=== PATIENT | female | born 1950 | race Caucasian/White ===

== ENCOUNTER 2021-05-08 08:27 | Emergency (ER) | payer OTHER ==
--- OUTSIDE RECORDS SUMMARY | 2021-05-08 08:33 | XMS REPORT | Clinical Summary ---
:1950 Author Organization [facility] MD [facility] Address [address] [place] [address] Care Team Providers Name Role Phone Naun Ramos MD Unavailable MD Ryder Primary Care Provider Aura Rubalcava MD Unavailable Allergies Active Allergy Reactions Severity Noted Date Comments Gadobutrol GI Intolerance Medium 03/16/2021 Patient had h istory of nausea vomiting after MRI. 03/16/21: pre me dicated with Zofran 4 m g I.v. Reaction of "ex treme" nausea despite premed Zofran 4 mg IV x1. GHADA Mcmahan , recommends slow inject and Zofran 8 mg IV x1. Nitrofurantoin GI Intolerance High 04/13/2021 Chills, sev ere nausea Monohyd/M-Cryst and vomiting Penicillins Rash Medium 02/02/2021 Medications Medication Sig Dispensed Refills Start End Status Date Date ferrous sulfate 325 Take 325 mg by 0 Active mg (65 mg elemental mouth daily. iron per tablet) tablet amLODIPine (NORVASC) Take 1 tablet 30 tablet 6 Active 5 mg (5 mg) by 2 tabletIndications: mouth daily. Malignant neoplasm of endometrium, Exam of participant in clinical trial INV-() Take 3 tablets 84 tablet 0 Active futibatinib (TAS-120) (12 mg) by 2 022 4 mg mouth daily tabletIndications: for 21 days. Malignant neoplasm of Take with 8 uterus, not otherwise oz. of water specified on empty stomach (no food 2 hours before and 1 hour after dose). levoFLOXacin Take 1 tablet 5 tablet 0 Act jose roberto (Levaquin) 750 mg (750 mg) by 2 tabletIndications: mouth daily. Urinary tract infectious disease, Uncontrolled pain morphine (MS CONTIN) Take 1 tablet 90 tablet 0 Active 15 mg ER (15 mg) by 2 tabletIndications: mouth every 8 Neoplasm related pain (eight) hours. (acute) (chronic) phenazopyridine Take 1 tablet 6 tablet 0 Active (Pyridium) 100 mg (100 mg) by 2 022 tabletIndications: mouth 3 Dysuria (three) times a day as needed for dysuria for up to 2 days. HYDROcodone-acetamino Take 1 tablet 90 tablet 0 Active phen (NORCO) 10 by mouth every 2 mg-325 mg per 4 (four) hours tabletIndications: as needed for Neoplasm related pain moderate pain (acute) (chronic) or severe pain. lisinopril Take 40 mg by 0 Disco ntinued (PRINIVIL,ZESTRIL) 40 mouth. 021 (Therapy mg tablet completed) nitrofurantoin Take by mouth. 0 Discontinued (MACRODANTIN) 100 mg 021 (Reorder) capsule amLODIPine (NORVASC) Take 5 mg by 0 Discontinued 5 mg tablet mouth. 022 (Reorder ) HYDROcodone-acetamino 0 Discontinued phen (NORCO) 7.5 1 021 (Re order) mg-325 mg per tablet fluconazole Take 1 tablet 2 tablet 0 Expi red (Diflucan) 150 mg (150 mg) by 1 021 tabletIndications: mouth once for Candidiasis, not 1 dose. May otherwise specified take an additional tablet after 72 hours if symptoms persist. HYDROcodone-acetamino Take 1 tablet 120 tablet 0 06/06 Discontinued phen (NORCO) 7.5 by mouth every 1 022 (Reorder) mg-325 mg per 4 (four) hours tabletIndications: as needed for Malignant neoplasm of moderate pain. endometrium INV-() Take 5 tablets 112 tablet 0 Discontinued futibatinib (TAS-120) (20 mg) by 1 021 (Reorder) 4 mg mouth daily tabletIndications: for 21 days. Malignant neoplasm of Take with 8 uterus, not otherwise oz. of water specified on empty stomach (no food 2 hours before and 1 hour after dose). sevelamer carbonate Take 1 tablet 21 tablet 0 Discontinued (Renvela) 800 mg (800 mg) by 1 021 tabletIndications: mouth 3 Hyperphosphatemia (three) times a day with meals. calcium Take 2 tablets 42 tablet 0 Expir ed acetate,phosphat by mouth 3 021 bind, (PHOSLO) 667 mg (three) times tabletIndications: a day with Hyperphosphatemia meals for 7 days. Additional Information Patient not taking. Reason: Side effects, Reported on 03/02/2021 docusate sodium Take 100 mg by 0 1 Discontinued (Stool Softener) 100 mouth daily as (Other ) mg tablet needed for constipation. nitrofurantoin Take 1 capsule (100 30 capsule 1 03/02 03/0 03/2021 Discontinued monohyd/m-cryst mg) by mouth at (Stop Taking at (MACROBID) 100 mg bedtime. Betzy franco) capsuleIndications: Malignant neoplasm of endometrium INV-() Take 4 tablets (16 28 tablet 0 03/02 Discontinued futibatinib mg) by mouth daily (Reorder) (TAS-120) 4 mg for 7 days. Take tabletIndications: with 8 ounce of Malignant neoplasm water on empty of uterus, not stomach (no food 2 otherwise specified hours before and 1 hour after dose). INV-() Take 4 tablets (16 84 tablet 0 03/09 futibatinib mg) by mouth daily /2021 (TAS-120) 4 mg for 21 days. Take tabletIndications: with 8 oz. of water Malignant neoplasm on empty stomach of uterus, not (no food 2 hours otherwise specified before and 1 hour after dose). HYDROcodone-acetamin Take 1 tablet by 120 tablet 0 03/10 0 04/13/2021 Discontinued ophen (NORCO) 7.5 mouth every (Reorder) mg-325 mg per (four) hours as tabletIndications: needed for moderate Malignant neoplasm pain. of endometrium nitrofurantoin Take 1 capsule (100 5 capsule 0 04/06 monohyd/m-cryst mg) by mouth at (Macrobid) 100 mg bedtime for 5 days. capsuleIndications: Chronic urinary tract infection ciprofloxacin HCl Take 1 tablet by 0 04/08 Discontinued (CIPRO) 500 mg mouth twice daily. /2021 (Stop Taking at tablet Discharge) HYDROcodone-acetamin Take 1 tablet by 120 tablet 0 04/13 0 05/05/2021 Discontinued ophen (NORCO) 7.5 mouth every (Stop Taking at mg-325 mg per (four) hours as Discharge) tabletIndications: needed for moderate Malignant neoplasm pain. of endometrium sulfamethoxazole-tri Take 1 tablet by 12 tablet 0 05/05 Discontinued methoprim (BACTRIM mouth every (Stop Taking at DS) 800 mg-160 mg (twelve) hours for Discharge) per 6 days. tabletIndications: Uncontrolled pain morphine (MSIR) 15 Take 0.5 tablets 60 tablet 0 05/05 Discontinued mg IR (7.5 mg) by mouth tabletIndications: every 4 (four) Neoplasm related hours as needed for pain (acute) pain. 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 02/23/2021 Neoplasm related pain (acute) (chronic) 02/23/2021 Urinary tract infectious disease 02/23/2021 Malignant neoplasm of uterus 04/07/2018 Hypertension 04/07/2011 Overview: Under control Encounters Date Type Specialty Care Team Description 05/07/2021 Orders Only Experimental Jay, Hydroureteronep hrosis Treatment Alycia, GAMBLING FLOOR SUPERVISOR (Primary Dx) 05/06/2021 Documentation Experimental Jay, Treatment Alycia, GAMBLING FLOOR SUPERVISOR 05/06/2021 Orders Only Experimental Jay, Dysuria (Primar y Dx); Treatment Alycia, GAMBLING FLOOR SUPERVISOR Hydroureteronep hrosis 05/06/2021 Telephone Wanda Patel Discharge Call MAK Christianson 05/06/2021 Telephone Adriana Gettings, Nick Lorenz RN 05/05/2021 Orders Only Experimental Johny, Malignant neopl asm of Treatment Dafne uterus, not oth erwise specified (Prim leonel Dx) 05/05/2021 Documentation Experimental Johny, Treatment Dafne 05/05/2021 Orders Only Experimental Trinidad Casillas, Treatment RPH 05/05/2021 Documentation Experimental Johny, Treatment Dafne 05/04/2021 Follow-Up Experimental Allison Scott, Malignant neopl asm of uterus, not otherwise specified (Primary Dx); Treatment PhD Malignant neopl asm of endometrium; Exam of partici pant in clinical trial 05/04/2021 Emergency Clinical Decision Parth Uncontroll ed pain (Primary Dx); - Bandar, Dysuria; 05/05/2021 Kia Cook MD Urinary tract infectious disease; Betts, Suprapubic pain ; Laurent Strickland, Neoplasm relate d pain (acute) (chronic) 05/04/2021 Hospital Encounter Lab Jay, Malignant neoplasm of Alycia, GAMBLING FLOOR SUPERVISOR uterus, not oth erwise specified 05/04/2021 Orders Only Experimental Trinidad Casillas, Malignant neopl asm of Treatment RPH uterus, not oth erwise specified (Prim leonel Dx) 05/04/2021 Travel 05/01/2021 Orders Only Experimental Johny, Treatment Dafne 04/24/2021 Documentation Experimental Johny, Treatment Dafne 04/24/2021 Documentation Experimental Johny, Treatment Dafne 04/15/2021 Documentation Experimental Johny, Treatment Dafne 04/15/2021 Orders Only Experimental Jay, Malignant neopl asm of Treatment Alycia, GAMBLING FLOOR SUPERVISOR uterus, not oth erwise specified (Prim leonel Dx) 04/14/2021 Prep for Surgery Pulmonology Sg, Abnormal fi ndings on [place] A, AUTO TESTER diagnostic imag ing of lung (Primary Dx) 04/14/2021 Orders Only Experimental Padilla, Croatian Hsin Treatment 04/14/2021 Telephone Experimental Willis, Treatment Hundred, GAMBLING FLOOR SUPERVISOR 04/13/2021 Ancillary Procedure Radiology Bruce Soler MD 04/13/2021 Ancillary Procedure Radiology Bruce Soler MD 04/13/2021 Hospital Encounter Infusion Services Allison Scott, Greer gnjoe neoplasm of PhD uterus, not otherwise Baby, specified (Prim leonel Dx) MAK Chaudhry 04/13/2021 Follow-Up Experimental Allison Scott, Malignant neopl asm of endometrium (Primary Dx); Treatment PhD Exam of partici pant in clinical trial; Anemia in malig nant neoplastic disease; Malignant neopl asm of uterus, not otherwise specified; Chronic urinary tract infection; Secondary malig nant neoplasm of bladder; Secondary malig nant neoplasm of colon; Secondary malig nant neoplasm of peritoneum; Cancer associat ed pain; Pneumonitis 04/13/2021 Documentation Experimental Johny, Treatment Dafne 04/13/2021 Orders Only Experimental Johny, Malignant neopl asm of Treatment Dafne endometrium (Pr imary Dx) 04/13/2021 Orders Only Experimental Allison Scott, Malignant neopl asm of Treatment PhD uterus, not oth erwise specified (Prim leonel Dx) 04/13/2021 Orders Only Experimental Trinidad Casillas, Malignant neopl asm of Treatment RPH uterus, not oth erwise specified (Prim leonel Dx) 04/13/2021 Travel 04/12/2021 Hospital Encounter Radiology Pierre, Malignant neoplasm of Alycia, GAMBLING FLOOR SUPERVISOR endometrium 04/12/2021 Hospital Encounter Lab Alba, Malignant neoplasm of endometrium; Hundred, GAMBLING FLOOR SUPERVISOR Chronic urinary tract infection; Malignant neopl asm of uterus, not otherwise specified 04/12/2021 Travel 04/09/2021 Orders Only Experimental Johny, Malignant neopl asm of Treatment Dafne endometrium (Pr imary Dx) 04/08/2021 Orders Only Experimental Padilla, Croatian Hsin Treatment 04/08/2021 Orders Only Experimental Padilla, Croatian Hsin Malignant neopl asm of Treatment uterus, not oth erwise specified (Prim leonel Dx) 04/08/2021 Documentation Experimental Johny, Treatment Dafne 04/08/2021 Orders Only Experimental Johny, Treatment Dafne 04/07/2021 Orders Only Experimental Johny, Malignant neopl asm of Treatment Dafne endometrium (Pr imary Dx) 04/06/2021 Orders Only Experimental Willis, Chronic urinary tract Treatment Hundred, GAMBLING FLOOR SUPERVISOR infection (Prim leonel Dx) 04/06/2021 Telephone Experimental Willis, Treatment Hundred, GAMBLING FLOOR SUPERVISOR 04/06/2021 Orders Only Experimental Johny, Malignant neopl asm of Treatment Dafne endometrium (Pr imary Dx) 04/03/2021 Follow-Up Experimental Willis, Secondary malig nant neoplasm of bladder (Primary Dx); Treatment Hundred, GAMBLING FLOOR SUPERVISOR Malignant neopl asm of endometrium; Secondary malig nant neoplasm of colon; Secondary malig nant neoplasm of peritoneum; Secondary malig nant neoplasm of bilateral lungs; Secondary malig nant neoplasm of bone; Anemia in malig nant neoplastic disease; Cancer associat ed pain 04/03/2021 Hospital Encounter Lab Alba, Malignant neoplasm of Hundred, GAMBLING FLOOR SUPERVISOR endometrium 04/03/2021 Travel 03/30/2021 Follow-Up Experimental Willis, Secondary malig nant neoplasm of bladder (Primary Dx); Treatment Hundred, GAMBLING FLOOR SUPERVISOR Malignant neopl asm of endometrium; Secondary malig nant neoplasm of colon; Secondary malig nant neoplasm of bone; Secondary malig nant neoplasm of bilateral lungs; Secondary malig nant neoplasm of peritoneum; Anemia in malig nant neoplastic disease; Hypoalbuminemia ; ALT (SGPT) leve l raised; Hyperphosphatem ia 03/30/2021 Hospital Encounter Lab Pierre, Malignant neoplasm of Alycia, GAMBLING FLOOR SUPERVISOR uterus, not oth erwise specified 03/30/2021 Orders Only Experimental Sameer, Malignant neopl asm of Treatment Allan H uterus, not oth erwise III, PharmD specified (Prim leonel Dx) 03/30/2021 Orders Only Experimental Yamamura, Malignant neopl asm of Treatment Jena endometrium (Pr imary Dx) 03/30/2021 Orders Only Experimental Yamamura, Malignant neopl asm of Treatment Jena endometrium (Pr imary Dx) 03/30/2021 Travel 03/30/2021 Orders Only Experimental Padilla, Croatian Hsin Malignant neopl asm of Treatment endometrium (Pr imary Dx) 03/16/2021 Emergency Clinical Decision Bandar, TIA (Prima ry Dx); - MD Neelam Anemia in malignant neoplastic disease; 03/17/2021 Gabbi, Hypercalcemia; MD Sampson Hyperphosphatem ia; Secondary malig nant neoplasm of bone; Malignant neopl asm of uterus 03/16/2021 Follow-Up Experimental Pierre, Malignant neopl asm of endometrium (Primary Dx); Treatment Alycia, GAMBLING FLOOR SUPERVISOR Secondary malignant neoplasm of bladder; Fu, Siqilaura, Secondary malig nant neoplasm of bilateral lungs; PhD Secondary malig nant neoplasm of bone; Secondary malig nant neoplasm of colon; Secondary malig nant neoplasm of peritoneum; Altered mental status; Fistula; Neoplasm relate d pain (acute) (chronic); Hypertension; Exam of partici pant in clinical trial; Anemia in malig nant neoplastic disease 03/16/2021 Orders Only Experimental Jay, Treatment Alycia, GAMBLING FLOOR SUPERVISOR 03/16/2021 Orders Only Experimental Pierre, Malignant neopl asm of Treatment Alycia, GAMBLING FLOOR SUPERVISOR uterus, not oth erwise specified (Prim leonel Dx) 03/16/2021 Orders Only Experimental Trinidad Casillas, Treatment RPH 03/16/2021 Travel 03/10/2021 Hospital Encounter Infusion Services FuAllison, Greer meier neoplasm of PhD uterus, not otherwise Kristal, specified (Prim leonel Dx) Michele Keene RN 03/10/2021 Orders Only Experimental Allison Scott, Malignant neopl asm of Treatment MD Lynn endometrium 03/10/2021 Travel 03/09/2021 Hospital Encounter Infusion Services Allison Scott Mali gnant neoplasm of PhD uterus, not oth erwise specified (Prim leonel Dx) 03/09/2021 Follow-Up Experimental Fu Siqing, Malignant neopl asm of uterus, not otherwise specified (Primary Dx); Treatment MD Lynn Malignant neopl asm of endometrium; Hyperphosphatem ia; Secondary malig nant neoplasm of bladder; Recurrent urina ry tract infection; Exam of partici pant in clinical trial 03/09/2021 Hospital Encounter Vascular Access Ryder, and Procedures MD Shashank Gilliland Joann N, RN 03/09/2021 Hospital Encounter Lab Jay, Malignant neoplasm of Alycia, GAMBLING FLOOR SUPERVISOR uterus, not oth erwise specified 03/09/2021 Orders Only Experimental Munson, Malignant neopl asm of Treatment Clarice, RPH uterus, not oth erwise specified (Prim leonel Dx) 03/09/2021 Orders Only Experimental Padilla Croatian Hsin Treatment 03/09/2021 Orders Only Experimental Fu, Siqing, Malignant neopl asm of Treatment PhD uterus, not oth erwise specified (Prim leonel Dx) 03/09/2021 Travel 03/05/2021 Hospital Encounter Lab Jay, Malignant neoplasm of Alycia, GAMBLING FLOOR SUPERVISOR uterus, not oth erwise specified 03/04/2021 Orders Only Experimental Zacarias, Malignant neopl asm of Treatment Vaishali A uterus, not oth erwise specified (Prim leonel Dx) 03/02/2021 Follow-Up Experimental Pierre, Malignant neopl asm of endometrium (Primary Dx); Treatment Alycia, GAMBLING FLOOR SUPERVISOR Hyperphosphatemia; Fu, Siqing, Secondary malig nant neoplasm of bladder; PhD Exam of partici pant in clinical trial; Recurrent urina ry tract infection 03/02/2021 Hospital Encounter Lab Fu, Siqing, Malignant neoplasm of MD PhD uterus, not oth erwise specified 03/02/2021 Orders Only Experimental Fu, Siqing, Malignant neopl asm of Treatment MD PhD uterus, not oth erwise specified (Prim leonel Dx) 03/02/2021 Orders Only Experimental Sameer, Treatment Allan Kumar III, PharmD 03/02/2021 Travel 02/23/2021 Follow-Up Experimental Pierre Malignant neopl asm of endometrium (Primary Dx); Treatment Alycia, GAMBLING FLOOR SUPERVISOR Hypotension, not otherwise specified; Adelso, Hyperphosphatem ia; Melly Del Castillo NP Secondary malig nant neoplasm of bladder; Secondary malig nant neoplasm of unspecified lung; Secondary malig nant neoplasm of bone; Secondary malig nant neoplasm of peritoneum; Secondary malig nant neoplasm of colon; Recurrent urina ry tract infection; Neoplasm relate d pain (acute) (chronic); Diarrhea; Anemia in malig nant neoplastic disease; Serum creatinin e raised; Elevated liver enzymes level 02/23/2021 Hospital Encounter Infusion Services Adleso, Hypo tension, not otherwise Melly Del Castillo NP specified (Primary Dx) Edilma Higgins RN 02/23/2021 Hospital Encounter Lab Allison Scott, Malignant neoplasm of PhD uterus, not oth erwise specified 02/23/2021 Travel 02/20/2021 Telephone Experimental Matt, Treatment MAK Rosado 02/16/2021 Hospital Encounter Infusion Services Greer Jay neoplasm of Alycia, GAMBLING FLOOR SUPERVISOR uterus, not oth erwise specified (Prim leonel Dx) 02/16/2021 Hospital Encounter Vascular Access Ryder, and Procedures MD Emilee Gilliland Fatima, MAK 02/16/2021 Follow-Up Experimental Allison Scott, Exam of partici pant in clinical trial (Primary Dx); Treatment MD Lynn Malignant neopl asm of endometrium; Anemia in [facility] nan neoplastic disease; Hypertension 02/16/2021 Hospital Encounter Lab Jay, Malignant neoplasm of Alycia, GAMBLING FLOOR SUPERVISOR endometrium 02/16/2021 Documentation Experimental Zacarias, Treatment Vaishali A 02/16/2021 Orders Only Experimental Allison Scott, Malignant neopl asm of Treatment PhD uterus, not oth erwise specified (Prim leonel Dx) 02/16/2021 Orders Only Experimental Pierre, Malignant neopl asm of Treatment Alycia, GAMBLING FLOOR SUPERVISOR uterus, not oth erwise specified (Prim leonel Dx) 02/16/2021 Travel 02/16/2021 Orders Only Experimental Trinidad Casilals, Malignant neopl asm of Treatment RPH uterus, not oth erwise specified (Prim leonel Dx) 02/16/2021 Orders Only Experimental Zacarias, Malignant neopl asm of Treatment Vaishali A endometrium (Pr imary Dx) 02/16/2021 Orders Only Experimental Zacarias, Malignant neopl asm of Treatment Vaishali A endometrium (Pr imary Dx) 02/13/2021 Hospital Encounter Cardiology Pierre, Malignant neoplasm of Alcyia, GAMBLING FLOOR SUPERVISOR endometrium 02/13/2021 Travel 02/12/2021 Ancillary Procedure Radiology Pierre, Malignan t neoplasm of Alycia, GAMBLING FLOOR SUPERVISOR endometrium 02/12/2021 Hospital Encounter Ophthalmology Av, Examinat ion of participant in clinical research (Primary Dx); MD Serena Malignant neopl asm of endometrium 02/12/2021 Hospital Encounter Cardiology Jay, Malignant neoplasm of Alycia, GAMBLING FLOOR SUPERVISOR endometrium 02/12/2021 Travel 02/11/2021 Orders Only Experimental Zacarias, Treatment Vaishali A 02/09/2021 Orders Only Experimental Zacarias Malignant neopl asm of Treatment Vaishali A endometrium (Pr imary Dx) 02/06/2021 Orders Only Experimental Allison Scott, Malignant neopl asm of Treatment PhD endometrium (Pr imary Dx) 02/06/2021 Telephone Gynecology Talat Soler MD 02/04/2021 Ancillary Procedure Radiology Ryder Malignan t neoplasm winnie Gilliland MD endometrium 02/04/2021 Orders Only Gynecology Ulisses, Malignant neopl asm of endometrium (Primary Dx); Leyda A, Dysuria PA 02/04/2021 Travel 02/03/2021 Orders Only Gynecology Ulisses, Encounter for a djustment Leyda A, and management of vascular PA catheters (Prim leonel Dx) 02/02/2021 Ancillary Procedure Radiology Janey Soler t Sasha MD endometrium 02/02/2021 Consult Experimental Allison Scott, Malignant neopl asm of endometrium (Primary Dx); Treatment PhD Exam of partici pant in clinical trial; Anemia in malig nant neoplastic disease; Hypertension 02/02/2021 Hospital Encounter Lab Ryder Malignant neoplasm winnie Gilliland MD endometrium 02/02/2021 Office Visit Gynecology Ryder, Malignant neopl asm of endometrium (Primary Dx); MD Talat Secondary malig nant neoplasm of peritoneum; Dysuria; Candidiasis, no t otherwise specified; Fistula 02/02/2021 NPR Patient Access Services 02/02/2021 Documentation Experimental Zacarias, Treatment Vaishali A 02/02/2021 Orders Only Adriana Adames, Treatment Vaishali A 02/02/2021 Travel 01/07/2021 Ancillary Procedure Radiology Bruce Soler MD 01/07/2021 Ancillary Procedure Radiology Bruce Soler MD 01/06/2021 Lab Requisition Lyle Martinez MD Fandel, Terese M, MD 12/29/2020 Travel after 05/08/2020 Immunizations Name Administration Dates Next Due Moderna SARS-CoV-2 Vaccination 10/30/2020, 10/03/2020 Surgical History Surgery Date Site/Laterality Comments COLON SURGERY 05/05/2020 - 06/04/2020 Ostomy, 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 HYSTERECTOMY VAGINAL 04/07/2018 - 05/04/2018 BSO Medical History Medical History Date Comments Hypertension 04/18 Under control History of recurrent urinary tract infection 05/2020 Malignant neoplasm of uterus 04/2018 Social History Tobacco Use Types Packs/Day Years Used Date Former Smoker Cigarettes, Electronic 0.5 25 03/1975 - cigarette 05/05/2005 Smokeless Tobacco: Never Used Comments: vapping currently, no Alcohol Use Standard Drinks/Week Comments Not Currently 0 (1 standard drink = 0.6 oz pure alcoho l) Sex Assigned at Date Recorded Not on file Job Start Date Occupation Industry Not on file Not on file Not on file COVID-19 Exposure Response Date Recorded In the last month, have you been in contact with No / Unsure 05/04/2021 5:51 PM SPEECH THERAPIST TECHNICIAN someone who was confirmed or suspected to have Coronavirus / COVID-19? Obstetrics History Para Term AB IAB SAB Ectopic Multiple Living Live Births 2 2 Date Outcome GA Total Labor/2nd/3rd Weight Sex Delivery Anes PTL Gabby A 1 A5 Name Clin Labor Para Para Comments Menopause 48 HRT denies Last Filed Vital Signs Vital Sign Reading Time Taken Comments Blood Pressure 109/61 05/05/2021 10:49 AM SPEECH THERAPIST TECHNICIAN Pulse 88 05/05/2021 10:49 AM SPEECH THERAPIST TECHNICIAN Temperature 36.9 C (98.4 F) 05/05/2021 10:49 AM SPEECH THERAPIST TECHNICIAN Respiratory Rate 17 05/05/2021 10:49 AM SPEECH THERAPIST TECHNICIAN Oxygen Saturation 95% 05/05/2021 10:50 AM SPEECH THERAPIST TECHNICIAN retake Inhaled Oxygen Concentration - - Weight 53.3 kg (117 lb 8.1 oz) 05/04/2021 2:15 PM SPEECH THERAPIST TECHNICIAN Height 160 cm (5' 2.99") 05/04/2021 2:15 PM SPEECH THERAPIST TECHNICIAN Body Mass Index 20.82 05/04/2021 2:15 PM SPEECH THERAPIST TECHNICIAN Plan of Treatment Date Type Specialty Care Team Description 05/11/2021 Appointment Lab Alycia Jay N P [address] [place], [place] [address] (Wo rk) 05/11/2021 Appointment Cardiology Alycia Jay N P [address] [place], [place] [address] (Wo rk) 05/11/2021 Follow-Up Experimental Treatment Milad Scott MD PhD [address] [place], [place] [address] (Wo rk) 05/11/2021 Appointment Infusion Services Allison Scott MD PhD [address] [place], [place] [address] (Wo rk) 05/25/2021 Appointment Cardiology Alycia Jay, N P [address] [place], [place] [address] (Wo rk) 05/25/2021 Follow-Up Experimental Treatment Milad Scott MD PhD [address] [place], [place] [address] (Wo rk) 05/25/2021 Appointment Radiology Alycia Jay, N P [address] [place], [place] [address] (Wo rk) Health Maintenance Due Date Last Done Comments COVID-19 Vaccination (3 - Inadvertent risk 11/27/202010/30, 10/03/2020 4-dose series) Procedures Procedure Name Priority Date/Time Associated Comments Diagnosis MANUAL DIFFERENTIAL AM 05/05/2021 5:12 Resu lts for this AM SPEECH THERAPIST TECHNICIAN procedure are i n the results section. Results CBC AM 05/05/2021 5:12 Results for this AM SPEECH THERAPIST TECHNICIAN procedure are i n the results section. CALCIUM LEVEL TOTAL AM 05/05/2021 5:12 Resu lts for this AM SPEECH THERAPIST TECHNICIAN procedure are i n the results section. .GLOMERULAR FILTRATION AM 05/05/2021 5:12 R esults for this RATE AM SPEECH THERAPIST TECHNICIAN procedure are i n the results section. SERUM CREATININE AM 05/05/2021 5:12 Results for this AM SPEECH THERAPIST TECHNICIAN procedure are i n the results section. ELECTROLYTE PANEL AM 05/05/2021 5:12 Result s for this AM SPEECH THERAPIST TECHNICIAN procedure are i n the results section. BLOOD UREA NITROGEN AM 05/05/2021 5:12 Resu lts for this AM SPEECH THERAPIST TECHNICIAN procedure are i n the results section. GLUCOSE LEVEL AM 05/05/2021 5:12 Results fo r this AM SPEECH THERAPIST TECHNICIAN procedure are i n the results section. COMPLETE BLOOD COUNT W/ AM 05/05/2021 5:12 DIFFERENTIAL AM SPEECH THERAPIST TECHNICIAN PHOSPHORUS LEVEL AM 05/05/2021 5:12 Results for this AM SPEECH THERAPIST TECHNICIAN procedure are i n the results section. MAGNESIUM LEVEL AM 05/05/2021 5:12 Results for this AM SPEECH THERAPIST TECHNICIAN procedure are i n the results section. BASIC METABOLIC PANEL, AM 05/05/2021 5:12 CALCIUM TOTAL AM SPEECH THERAPIST TECHNICIAN CT ABDOMEN PELVIS W Routine 05/04/2021 10:17 Resu lts for this CONTRAST PM SPEECH THERAPIST TECHNICIAN procedure are i n the results section. COVID-19 (SARS-COV-2) Now 05/04/2021 12:27 Re sults for this ASYMPTOMATIC-LT PM SPEECH THERAPIST TECHNICIAN procedure ar e in the results section. URINE CULTURE Now 05/04/2021 10:42 Results fo r this AM SPEECH THERAPIST TECHNICIAN procedure are i n the results section. URINALYSIS MICROSCOPIC Routine 05/04/2021 8:47 R esults for this AM SPEECH THERAPIST TECHNICIAN procedure are i n the results section. FRACTIONATED BILIRUBIN Routine 05/04/2021 8:47 Malignant neop lasm Results for this AM SPEECH THERAPIST TECHNICIAN of uterus, not procedure are in otherwise specified the resu lts section. TOTAL PROTEIN Routine 05/04/2021 8:47 Malignant neoplasm Resu lts for this AM SPEECH THERAPIST TECHNICIAN of uterus, not procedure are in otherwise specified the resu lts section. ASPARTATE Routine 05/04/2021 8:47 Malignant neoplasm Resul ts for this AMINOTRANSFERASE AM SPEECH THERAPIST TECHNICIAN of uterus, not procedure are in otherwise specified the resu lts section. ALANINE AMINOTRANSFERASE Routine 05/04/2021 8:47 Malignant ne oplasm Results for this AM SPEECH THERAPIST TECHNICIAN of uterus, not procedure are in otherwise specified the resu lts section. ALKALINE PHOSPHATASE Routine 05/04/2021 8:47 Malignant neopla sm Results for this AM SPEECH THERAPIST TECHNICIAN of uterus, not procedure are in otherwise specified the resu lts section. ALBUMIN LEVEL Routine 05/04/2021 8:47 Malignant neoplasm Resu lts for this AM SPEECH THERAPIST TECHNICIAN of uterus, not procedure are in otherwise specified the resu lts section. CALCIUM LEVEL TOTAL Routine 05/04/2021 8:47 Malignant neoplas m Results for this AM SPEECH THERAPIST TECHNICIAN of uterus, not procedure are in otherwise specified the resu lts section. .GLOMERULAR FILTRATION Routine 05/04/2021 8:47 Malignant neop lasm Results for this RATE AM SPEECH THERAPIST TECHNICIAN of uterus, not procedure are in otherwise specified the resu lts section. SERUM CREATININE Routine 05/04/2021 8:47 Malignant neoplasm R esults for this AM SPEECH THERAPIST TECHNICIAN of uterus, not procedure are in otherwise specified the resu lts section. ELECTROLYTE PANEL Routine 05/04/2021 8:47 Malignant neoplasm Results for this AM SPEECH THERAPIST TECHNICIAN of uterus, not procedure are in otherwise specified the resu lts section. BLOOD UREA NITROGEN Routine 05/04/2021 8:47 Malignant neoplas m Results for this AM SPEECH THERAPIST TECHNICIAN of uterus, not procedure are in otherwise specified the resu lts section. GLUCOSE LEVEL Routine 05/04/2021 8:47 Malignant neoplasm Resu lts for this AM SPEECH THERAPIST TECHNICIAN of uterus, not procedure are in otherwise specified the resu lts section. MANUAL DIFFERENTIAL Routine 05/04/2021 8:47 Malignant neoplas m Results for this AM SPEECH THERAPIST TECHNICIAN of uterus, not procedure are in otherwise specified the resu lts section. Results CBC Routine 05/04/2021 8:47 Malignant neoplasm Resul ts for this AM SPEECH THERAPIST TECHNICIAN of uterus, not procedure are in otherwise specified the resu lts section. URINALYSIS WITH Routine 05/04/2021 8:47 Malignant neoplasm Re sults for this MICROSCOPIC IF INDICATED AM SPEECH THERAPIST TECHNICIAN of uterus, not p rocedure are in otherwise specified the resu lts section. PHOSPHORUS LEVEL Routine 05/04/2021 8:47 Malignant neoplasm R esults for this AM SPEECH THERAPIST TECHNICIAN of uterus, not procedure are in otherwise specified the resu lts section. MAGNESIUM LEVEL Routine 05/04/2021 8:47 Malignant neoplasm Re sults for this AM SPEECH THERAPIST TECHNICIAN of uterus, not procedure are in otherwise specified the resu lts section. COMPREHENSIVE METABOLIC Routine 05/04/2021 8:47 Malignant romel plasm PANEL AM SPEECH THERAPIST TECHNICIAN of uterus, not otherwise specified COMPLETE BLOOD COUNT W/ Routine 05/04/2021 8:47 Malignant romel plasm DIFFERENTIAL AM SPEECH THERAPIST TECHNICIAN of uterus, not otherwise specified CTRC EKG, 12-LEAD Routine 04/13/2021 Malignant neoplasm of uterus, not otherwise specified CT CHEST W CONTRAST Routine 04/12/2021 12:14 Malignant neoplas m Results for this PM SPEECH THERAPIST TECHNICIAN of endometrium procedure are in the results section. URINALYSIS WITH REFLEX Routine 04/12/2021 10:56 R esults for this TO MICROSCOPIC REFERENCE AM SPEECH THERAPIST TECHNICIAN pro cedure are in LAB the results section. FRACTIONATED BILIRUBIN Routine 04/12/2021 10:56 Malignant neop lasm Results for this AM SPEECH THERAPIST TECHNICIAN of endometrium procedure are in the results section. TOTAL PROTEIN Routine 04/12/2021 10:56 Malignant neoplasm Resu lts for this AM SPEECH THERAPIST TECHNICIAN of endometrium procedure are in the results section. ASPARTATE Routine 04/12/2021 10:56 Malignant neoplasm Resul ts for this AMINOTRANSFERASE AM SPEECH THERAPIST TECHNICIAN of endometrium procedure are in the results section. ALANINE AMINOTRANSFERASE Routine 04/12/2021 10:56 Malignant ne oplasm Results for this AM SPEECH THERAPIST TECHNICIAN of endometrium procedure are in the results section. ALKALINE PHOSPHATASE Routine 04/12/2021 10:56 Malignant neopla sm Results for this AM SPEECH THERAPIST TECHNICIAN of endometrium procedure are in the results section. ALBUMIN LEVEL Routine 04/12/2021 10:56 Malignant neoplasm Resu lts for this AM SPEECH THERAPIST TECHNICIAN of endometrium procedure are in the results section. CALCIUM LEVEL TOTAL Routine 04/12/2021 10:56 Malignant neoplas m Results for this AM SPEECH THERAPIST TECHNICIAN of endometrium procedure are in the results section. .GLOMERULAR FILTRATION Routine 04/12/2021 10:56 Malignant neop lasm Results for this RATE AM SPEECH THERAPIST TECHNICIAN of endometrium procedure are in the results section. SERUM CREATININE Routine 04/12/2021 10:56 Malignant neoplasm R esults for this AM SPEECH THERAPIST TECHNICIAN of endometrium procedure are in the results section. ELECTROLYTE PANEL Routine 04/12/2021 10:56 Malignant neoplasm Results for this AM SPEECH THERAPIST TECHNICIAN of endometrium procedure are in the results section. BLOOD UREA NITROGEN Routine 04/12/2021 10:56 Malignant neoplas m Results for this AM SPEECH THERAPIST TECHNICIAN of endometrium procedure are in the results section. GLUCOSE LEVEL Routine 04/12/2021 10:56 Malignant neoplasm Resu lts for this AM SPEECH THERAPIST TECHNICIAN of endometrium procedure are in the results section. MANUAL DIFFERENTIAL Routine 04/12/2021 10:56 Malignant neoplas m Results for this AM SPEECH THERAPIST TECHNICIAN of endometrium procedure are in the results section. Results CBC Routine 04/12/2021 10:56 Malignant neoplasm Resul ts for this AM SPEECH THERAPIST TECHNICIAN of endometrium procedure are in the results section. CANCER ANTIGEN 125 Routine 04/12/2021 10:56 Malignant neoplasm Results for this AM SPEECH THERAPIST TECHNICIAN of uterus, not procedure are in otherwise specified the resu lts section. CANCER ANTIGEN 15-3 Routine 04/12/2021 10:56 Malignant neoplas m Results for this AM SPEECH THERAPIST TECHNICIAN of uterus, not procedure are in otherwise specified the resu lts section. FREE THYROXINE Routine 04/12/2021 10:56 Malignant neoplasm Res ults for this AM SPEECH THERAPIST TECHNICIAN of endometrium procedure are in the results section. THYROID STIMULATING Routine 04/12/2021 10:56 Malignant neoplas m Results for this HORMONE AM SPEECH THERAPIST TECHNICIAN of endometrium procedure are in the results section. PHOSPHORUS LEVEL Routine 04/12/2021 10:56 Malignant neoplasm R esults for this AM SPEECH THERAPIST TECHNICIAN of endometrium procedure are in the results section. MAGNESIUM LEVEL Routine 04/12/2021 10:56 Malignant neoplasm Re sults for this AM SPEECH THERAPIST TECHNICIAN of endometrium procedure are in the results section. COMPREHENSIVE METABOLIC Routine 04/12/2021 10:56 Malignant romel plasm PANEL AM SPEECH THERAPIST TECHNICIAN of endometrium COMPLETE BLOOD COUNT W/ Routine 04/12/2021 10:56 Malignant romel plasm DIFFERENTIAL AM SPEECH THERAPIST TECHNICIAN of endometrium URINE CULTURE Routine 04/12/2021 10:56 Chronic urinary Results for this AM SPEECH THERAPIST TECHNICIAN tract infection procedure ar e in the results section. OSI CT ABDOMEN AND Routine 04/08/2021 11:52 Cancer Resul ts for this PELVIS AM SPEECH THERAPIST TECHNICIAN procedure are i n the results section. OSI CHEST Routine 04/08/2021 11:52 Cancer Results for this AM SPEECH THERAPIST TECHNICIAN procedure are i n the results section. TMP INTERPRETATION Routine 04/03/2021 8:42 Resul ts for this ANTIBODY SCREEN NEGATIVE AM SPEECH THERAPIST TECHNICIAN pro cedure are in the results section. CLOT EXPIRATION DATE Routine 04/03/2021 8:42 Res ults for this AM SPEECH THERAPIST TECHNICIAN procedure are i n the results section. MANUAL DIFFERENTIAL Routine 04/03/2021 8:42 Malignant neoplas m Results for this AM SPEECH THERAPIST TECHNICIAN of endometrium procedure are in the results section. Results CBC Routine 04/03/2021 8:42 Malignant neoplasm Resul ts for this AM SPEECH THERAPIST TECHNICIAN of endometrium procedure are in the results section. ANTIBODY SCREEN Routine 04/03/2021 8:42 Malignant neoplasm Re sults for this AM SPEECH THERAPIST TECHNICIAN of endometrium procedure are in the results section. ABORH Routine 04/03/2021 8:42 Malignant neoplasm Resul ts for this AM SPEECH THERAPIST TECHNICIAN of endometrium procedure are in the results section. TYPE AND SCREEN Routine 04/03/2021 8:42 Malignant neoplasm AM SPEECH THERAPIST TECHNICIAN of endometrium COMPLETE BLOOD COUNT W/ Routine 04/03/2021 8:42 Malignant romel plasm DIFFERENTIAL AM SPEECH THERAPIST TECHNICIAN of endometrium URINALYSIS WITH REFLEX Routine 03/30/2021 8:55 R esults for this TO MICROSCOPIC REFERENCE AM SPEECH THERAPIST TECHNICIAN pro cedure are in LAB the results section. FRACTIONATED BILIRUBIN Routine 03/30/2021 8:55 Malignant neop lasm Results for this AM SPEECH THERAPIST TECHNICIAN of uterus, not procedure are in otherwise specified the resu lts section. TOTAL PROTEIN Routine 03/30/2021 8:55 Malignant neoplasm Resu lts for this AM SPEECH THERAPIST TECHNICIAN of uterus, not procedure are in otherwise specified the resu lts section. ASPARTATE Routine 03/30/2021 8:55 Malignant neoplasm Resul ts for this AMINOTRANSFERASE AM SPEECH THERAPIST TECHNICIAN of uterus, not procedure are in otherwise specified the resu lts section. ALANINE AMINOTRANSFERASE Routine 03/30/2021 8:55 Malignant ne oplasm Results for this AM SPEECH THERAPIST TECHNICIAN of uterus, not procedure are in otherwise specified the resu lts section. ALKALINE PHOSPHATASE Routine 03/30/2021 8:55 Malignant neopla sm Results for this AM SPEECH THERAPIST TECHNICIAN of uterus, not procedure are in otherwise specified the resu lts section. ALBUMIN LEVEL Routine 03/30/2021 8:55 Malignant neoplasm Resu lts for this AM SPEECH THERAPIST TECHNICIAN of uterus, not procedure are in otherwise specified the resu lts section. CALCIUM LEVEL TOTAL Routine 03/30/2021 8:55 Malignant neoplas m Results for this AM SPEECH THERAPIST TECHNICIAN of uterus, not procedure are in otherwise specified the resu lts section. .GLOMERULAR FILTRATION Routine 03/30/2021 8:55 Malignant neop lasm Results for this RATE AM SPEECH THERAPIST TECHNICIAN of uterus, not procedure are in otherwise specified the resu lts section. SERUM CREATININE Routine 03/30/2021 8:55 Malignant neoplasm R esults for this AM SPEECH THERAPIST TECHNICIAN of uterus, not procedure are in otherwise specified the resu lts section. ELECTROLYTE PANEL Routine 03/30/2021 8:55 Malignant neoplasm Results for this AM SPEECH THERAPIST TECHNICIAN of uterus, not procedure are in otherwise specified the resu lts section. BLOOD UREA NITROGEN Routine 03/30/2021 8:55 Malignant neoplas m Results for this AM SPEECH THERAPIST TECHNICIAN of uterus, not procedure are in otherwise specified the resu lts section. GLUCOSE LEVEL Routine 03/30/2021 8:55 Malignant neoplasm Resu lts for this AM SPEECH THERAPIST TECHNICIAN of uterus, not procedure are in otherwise specified the resu lts section. MANUAL DIFFERENTIAL Routine 03/30/2021 8:55 Malignant neoplas m Results for this AM SPEECH THERAPIST TECHNICIAN of uterus, not procedure are in otherwise specified the resu lts section. Results CBC Routine 03/30/2021 8:55 Malignant neoplasm Resul ts for this AM SPEECH THERAPIST TECHNICIAN of uterus, not procedure are in otherwise specified the resu lts section. CANCER ANTIGEN 125 Routine 03/30/2021 8:55 Malignant neoplasm Results for this AM SPEECH THERAPIST TECHNICIAN of uterus, not procedure are in otherwise specified the resu lts section. CANCER ANTIGEN 15-3 Routine 03/30/2021 8:55 Malignant neoplas m Results for this AM SPEECH THERAPIST TECHNICIAN of uterus, not procedure are in otherwise specified the resu lts section. THYROID STIMULATING Routine 03/30/2021 8:55 Malignant neoplas m Results for this HORMONE AM SPEECH THERAPIST TECHNICIAN of uterus, not procedure are in otherwise specified the resu lts section. FREE THYROXINE Routine 03/30/2021 8:55 Malignant neoplasm Res ults for this AM SPEECH THERAPIST TECHNICIAN of uterus, not procedure are in otherwise specified the resu lts section. PHOSPHORUS LEVEL Routine 03/30/2021 8:55 Malignant neoplasm R esults for this AM SPEECH THERAPIST TECHNICIAN of uterus, not procedure are in otherwise specified the resu lts section. MAGNESIUM LEVEL Routine 03/30/2021 8:55 Malignant neoplasm Re sults for this AM SPEECH THERAPIST TECHNICIAN of uterus, not procedure are in otherwise specified the resu lts section. COMPREHENSIVE METABOLIC Routine 03/30/2021 8:55 Malignant romel plasm PANEL AM SPEECH THERAPIST TECHNICIAN of uterus, not otherwise specified COMPLETE BLOOD COUNT W/ Routine 03/30/2021 8:55 Malignant romel plasm DIFFERENTIAL AM SPEECH THERAPIST TECHNICIAN of uterus, not otherwise specified HEMATOCRIT STAT 03/17/2021 6:47 Results for this AM SPEECH THERAPIST TECHNICIAN procedure are i n the results section. HEMOGLOBIN STAT 03/17/2021 6:47 Results for this AM SPEECH THERAPIST TECHNICIAN procedure are i n the results section. MANUAL DIFFERENTIAL AM 03/17/2021 4:00 Resu lts for this AM SPEECH THERAPIST TECHNICIAN procedure are i n the results section. Results CBC AM 03/17/2021 4:00 Results for this AM SPEECH THERAPIST TECHNICIAN procedure are i n the results section. CALCIUM LEVEL TOTAL AM 03/17/2021 4:00 Resu lts for this AM SPEECH THERAPIST TECHNICIAN procedure are i n the results section. .GLOMERULAR FILTRATION AM 03/17/2021 4:00 R esults for this RATE AM SPEECH THERAPIST TECHNICIAN procedure are i n the results section. SERUM CREATININE AM 03/17/2021 4:00 Results for this AM SPEECH THERAPIST TECHNICIAN procedure are i n the results section. ELECTROLYTE PANEL AM 03/17/2021 4:00 Result s for this AM SPEECH THERAPIST TECHNICIAN procedure are i n the results section. BLOOD UREA NITROGEN AM 03/17/2021 4:00 Resu lts for this AM SPEECH THERAPIST TECHNICIAN procedure are i n the results section. GLUCOSE LEVEL AM 03/17/2021 4:00 Results fo r this AM SPEECH THERAPIST TECHNICIAN procedure are i n the results section. HEMOGLOBIN A1C Routine 03/17/2021 4:00 Results f or this AM SPEECH THERAPIST TECHNICIAN procedure are i n the results section. LIPID PANEL Routine 03/17/2021 4:00 Results for this AM SPEECH THERAPIST TECHNICIAN procedure are i n the results section. COMPLETE BLOOD COUNT W/ AM 03/17/2021 4:00 DIFFERENTIAL AM SPEECH THERAPIST TECHNICIAN PHOSPHORUS LEVEL AM 03/17/2021 4:00 Results for this AM SPEECH THERAPIST TECHNICIAN procedure are i n the results section. MAGNESIUM LEVEL AM 03/17/2021 4:00 Results for this AM SPEECH THERAPIST TECHNICIAN procedure are i n the results section. BASIC METABOLIC PANEL, AM 03/17/2021 4:00 CALCIUM TOTAL AM SPEECH THERAPIST TECHNICIAN CTA HEAD NECK W WO STAT 03/16/2021 10:20 Resul ts for this CONTRAST PM SPEECH THERAPIST TECHNICIAN procedure are i n the results section. URINALYSIS MICROSCOPIC Routine 03/16/2021 9:08 R esults for this PM SPEECH THERAPIST TECHNICIAN procedure are i n the results section. URINALYSIS WITH Now 03/16/2021 9:08 Results for this MICROSCOPIC IF INDICATED PM SPEECH THERAPIST TECHNICIAN pro cedure are in the results section. URINE CULTURE Now 03/16/2021 9:08 Results fo r this PM SPEECH THERAPIST TECHNICIAN procedure are i n the results section. MRI BRAIN W WO CONTRAST Routine 03/16/2021 3:52 Results for this PM SPEECH THERAPIST TECHNICIAN procedure are i n the results section. CT HEAD WO CONTRAST STAT 03/16/2021 12:17 Resu lts for this PM SPEECH THERAPIST TECHNICIAN procedure are i n the results section. POC VENOUS BLOOD GAS + Routine 03/16/2021 11:37 R esults for this LACTATE AM SPEECH THERAPIST TECHNICIAN procedure are i n the results section. XR CHEST 1 VW Routine 03/16/2021 11:25 Results fo r this AM SPEECH THERAPIST TECHNICIAN procedure are i n the results section. CLOT EXPIRATION DATE Routine 03/16/2021 11:25 Res ults for this AM SPEECH THERAPIST TECHNICIAN procedure are i n the results section. TMP INTERPRETATION Routine 03/16/2021 11:25 Resul ts for this ANTIBODY SCREEN NEGATIVE AM SPEECH THERAPIST TECHNICIAN pro cedure are in the results section. ANTIBODY SCREEN Now 03/16/2021 11:25 Results for this AM SPEECH THERAPIST TECHNICIAN procedure are i n the results section. ABORH Now 03/16/2021 11:25 Results for this AM SPEECH THERAPIST TECHNICIAN procedure are i n the results section. FRACTIONATED BILIRUBIN Now 03/16/2021 11:25 R esults for this AM SPEECH THERAPIST TECHNICIAN procedure are i n the results section. TOTAL PROTEIN Now 03/16/2021 11:25 Results fo r this AM SPEECH THERAPIST TECHNICIAN procedure are i n the results section. ASPARTATE Now 03/16/2021 11:25 Results for this AMINOTRANSFERASE AM SPEECH THERAPIST TECHNICIAN procedure a re in the results section. ALANINE AMINOTRANSFERASE Now 03/16/2021 11:25 Results for this AM SPEECH THERAPIST TECHNICIAN procedure are i n the results section. ALKALINE PHOSPHATASE Now 03/16/2021 11:25 Res ults for this AM SPEECH THERAPIST TECHNICIAN procedure are i n the results section. ALBUMIN LEVEL Now 03/16/2021 11:25 Results fo r this AM SPEECH THERAPIST TECHNICIAN procedure are i n the results section. CALCIUM LEVEL TOTAL Now 03/16/2021 11:25 Resu lts for this AM SPEECH THERAPIST TECHNICIAN procedure are i n the results section. .GLOMERULAR FILTRATION Now 03/16/2021 11:25 R esults for this RATE AM SPEECH THERAPIST TECHNICIAN procedure are i n the results section. SERUM CREATININE Now 03/16/2021 11:25 Results for this AM SPEECH THERAPIST TECHNICIAN procedure are i n the results section. ELECTROLYTE PANEL Now 03/16/2021 11:25 Result s for this AM SPEECH THERAPIST TECHNICIAN procedure are i n the results section. BLOOD UREA NITROGEN Now 03/16/2021 11:25 Resu lts for this AM SPEECH THERAPIST TECHNICIAN procedure are i n the results section. GLUCOSE LEVEL Now 03/16/2021 11:25 Results fo r this AM SPEECH THERAPIST TECHNICIAN procedure are i n the results section. MANUAL DIFFERENTIAL STAT 03/16/2021 11:25 Resu lts for this AM SPEECH THERAPIST TECHNICIAN procedure are i n the results section. Results CBC STAT 03/16/2021 11:25 Results for this AM SPEECH THERAPIST TECHNICIAN procedure are i n the results section. TYPE AND SCREEN Now 03/16/2021 11:25 AM SPEECH THERAPIST TECHNICIAN LACTATE DEHYDROGENASE Now 03/16/2021 11:25 Re sults for this AM SPEECH THERAPIST TECHNICIAN procedure are i n the results section. APTT Now 03/16/2021 11:25 Results for this AM SPEECH THERAPIST TECHNICIAN procedure are i n the results section. PROTHROMBIN TIME Now 03/16/2021 11:25 Results for this AM SPEECH THERAPIST TECHNICIAN procedure are i n the results section. PHOSPHORUS LEVEL Now 03/16/2021 11:25 Results for this AM SPEECH THERAPIST TECHNICIAN procedure are i n the results section. MAGNESIUM LEVEL Now 03/16/2021 11:25 Results for this AM SPEECH THERAPIST TECHNICIAN procedure are i n the results section. COMPREHENSIVE METABOLIC Now 03/16/2021 11:25 PANEL AM SPEECH THERAPIST TECHNICIAN COMPLETE BLOOD COUNT W/ Now 03/16/2021 11:25 DIFFERENTIAL AM SPEECH THERAPIST TECHNICIAN AMMONIA LEVEL Now 03/16/2021 11:25 Results fo r this AM SPEECH THERAPIST TECHNICIAN procedure are i n the results section. COVID-19 (SARS-COV-2) Now 03/16/2021 11:25 Re sults for this ASYMPTOMATIC-LT AM SPEECH THERAPIST TECHNICIAN procedure ar e in the results section. POC GLUCOSE SCREEN Routine 03/16/2021 11:09 Resul ts for this AM SPEECH THERAPIST TECHNICIAN procedure are i n the results section. EKG, 12-LEAD (PORTABLE) STAT 03/16/2021 URINALYSIS MICROSCOPIC Routine 03/09/2021 12:07 R esults for this PM SPEECH THERAPIST TECHNICIAN procedure are i n the results section. URINALYSIS WITH Routine 03/09/2021 12:07 Malignant neoplasm Re sults for this MICROSCOPIC IF INDICATED PM SPEECH THERAPIST TECHNICIAN of uterus, not p rocedure are in otherwise specified the resu lts section. FRACTIONATED BILIRUBIN Routine 03/09/2021 12:00 Malignant neop lasm Results for this PM SPEECH THERAPIST TECHNICIAN of uterus, not procedure are in otherwise specified the resu lts section. TOTAL PROTEIN Routine 03/09/2021 12:00 Malignant neoplasm Resu lts for this PM SPEECH THERAPIST TECHNICIAN of uterus, not procedure are in otherwise specified the resu lts section. ASPARTATE Routine 03/09/2021 12:00 Malignant neoplasm Resul ts for this AMINOTRANSFERASE PM SPEECH THERAPIST TECHNICIAN of uterus, not procedure are in otherwise specified the resu lts section. ALANINE AMINOTRANSFERASE Routine 03/09/2021 12:00 Malignant ne oplasm Results for this PM SPEECH THERAPIST TECHNICIAN of uterus, not procedure are in otherwise specified the resu lts section. ALKALINE PHOSPHATASE Routine 03/09/2021 12:00 Malignant neopla sm Results for this PM SPEECH THERAPIST TECHNICIAN of uterus, not procedure are in otherwise specified the resu lts section. ALBUMIN LEVEL Routine 03/09/2021 12:00 Malignant neoplasm Resu lts for this PM SPEECH THERAPIST TECHNICIAN of uterus, not procedure are in otherwise specified the resu lts section. CALCIUM LEVEL TOTAL Routine 03/09/2021 12:00 Malignant neoplas m Results for this PM SPEECH THERAPIST TECHNICIAN of uterus, not procedure are in otherwise specified the resu lts section. .GLOMERULAR FILTRATION Routine 03/09/2021 12:00 Malignant neop lasm Results for this RATE PM SPEECH THERAPIST TECHNICIAN of uterus, not procedure are in otherwise specified the resu lts section. SERUM CREATININE Routine 03/09/2021 12:00 Malignant neoplasm R esults for this PM SPEECH THERAPIST TECHNICIAN of uterus, not procedure are in otherwise specified the resu lts section. ELECTROLYTE PANEL Routine 03/09/2021 12:00 Malignant neoplasm Results for this PM SPEECH THERAPIST TECHNICIAN of uterus, not procedure are in otherwise specified the resu lts section. BLOOD UREA NITROGEN Routine 03/09/2021 12:00 Malignant neoplas m Results for this PM SPEECH THERAPIST TECHNICIAN of uterus, not procedure are in otherwise specified the resu lts section. GLUCOSE LEVEL Routine 03/09/2021 12:00 Malignant neoplasm Resu lts for this PM SPEECH THERAPIST TECHNICIAN of uterus, not procedure are in otherwise specified the resu lts section. MANUAL DIFFERENTIAL Routine 03/09/2021 12:00 Malignant neoplas m Results for this PM SPEECH THERAPIST TECHNICIAN of uterus, not procedure are in otherwise specified the resu lts section. Results CBC Routine 03/09/2021 12:00 Malignant neoplasm Resul ts for this PM SPEECH THERAPIST TECHNICIAN of uterus, not procedure are in otherwise specified the resu lts section. PHOSPHORUS LEVEL Routine 03/09/2021 12:00 Malignant neoplasm R esults for this PM SPEECH THERAPIST TECHNICIAN of uterus, not procedure are in otherwise specified the resu lts section. MAGNESIUM LEVEL Routine 03/09/2021 12:00 Malignant neoplasm Re sults for this PM SPEECH THERAPIST TECHNICIAN of uterus, not procedure are in otherwise specified the resu lts section. COMPREHENSIVE METABOLIC Routine 03/09/2021 12:00 Malignant romel plasm PANEL PM SPEECH THERAPIST TECHNICIAN of uterus, not otherwise specified COMPLETE BLOOD COUNT W/ Routine 03/09/2021 12:00 Malignant romel plasm DIFFERENTIAL PM SPEECH THERAPIST TECHNICIAN of uterus, not otherwise specified MANUAL DIFFERENTIAL Routine 03/05/2021 12:14 Malignant neoplas m Results for this PM SPEECH THERAPIST TECHNICIAN of uterus, not procedure are in otherwise specified the resu lts section. Results CBC Routine 03/05/2021 12:14 Malignant neoplasm Resul ts for this PM SPEECH THERAPIST TECHNICIAN of uterus, not procedure are in otherwise specified the resu lts section. FRACTIONATED BILIRUBIN Routine 03/05/2021 12:14 Malignant neop lasm Results for this PM SPEECH THERAPIST TECHNICIAN of uterus, not procedure are in otherwise specified the resu lts section. TOTAL PROTEIN Routine 03/05/2021 12:14 Malignant neoplasm Resu lts for this PM SPEECH THERAPIST TECHNICIAN of uterus, not procedure are in otherwise specified the resu lts section. ASPARTATE Routine 03/05/2021 12:14 Malignant neoplasm Resul ts for this AMINOTRANSFERASE PM SPEECH THERAPIST TECHNICIAN of uterus, not procedure are in otherwise specified the resu lts section. ALANINE AMINOTRANSFERASE Routine 03/05/2021 12:14 Malignant ne oplasm Results for this PM SPEECH THERAPIST TECHNICIAN of uterus, not procedure are in otherwise specified the resu lts section. ALKALINE PHOSPHATASE Routine 03/05/2021 12:14 Malignant neopla sm Results for this PM SPEECH THERAPIST TECHNICIAN of uterus, not procedure are in otherwise specified the resu lts section. ALBUMIN LEVEL Routine 03/05/2021 12:14 Malignant neoplasm Resu lts for this PM SPEECH THERAPIST TECHNICIAN of uterus, not procedure are in otherwise specified the resu lts section. CALCIUM LEVEL TOTAL Routine 03/05/2021 12:14 Malignant neoplas m Results for this PM SPEECH THERAPIST TECHNICIAN of uterus, not procedure are in otherwise specified the resu lts section. .GLOMERULAR FILTRATION Routine 03/05/2021 12:14 Malignant neop lasm Results for this RATE PM SPEECH THERAPIST TECHNICIAN of uterus, not procedure are in otherwise specified the resu lts section. SERUM CREATININE Routine 03/05/2021 12:14 Malignant neoplasm R esults for this PM SPEECH THERAPIST TECHNICIAN of uterus, not procedure are in otherwise specified the resu lts section. ELECTROLYTE PANEL Routine 03/05/2021 12:14 Malignant neoplasm Results for this PM SPEECH THERAPIST TECHNICIAN of uterus, not procedure are in otherwise specified the resu lts section. BLOOD UREA NITROGEN Routine 03/05/2021 12:14 Malignant neoplas m Results for this PM SPEECH THERAPIST TECHNICIAN of uterus, not procedure are in otherwise specified the resu lts section. GLUCOSE LEVEL Routine 03/05/2021 12:14 Malignant neoplasm Resu lts for this PM SPEECH THERAPIST TECHNICIAN of uterus, not procedure are in otherwise specified the resu lts section. COMPLETE BLOOD COUNT W/ Routine 03/05/2021 12:14 Malignant romel plasm DIFFERENTIAL PM SPEECH THERAPIST TECHNICIAN of uterus, not otherwise specified COMPREHENSIVE METABOLIC Routine 03/05/2021 12:14 Malignant romel plasm PANEL PM SPEECH THERAPIST TECHNICIAN of uterus, not otherwise specified MAGNESIUM LEVEL Routine 03/05/2021 12:14 Malignant neoplasm Re sults for this PM SPEECH THERAPIST TECHNICIAN of uterus, not procedure are in otherwise specified the resu lts section. PHOSPHORUS LEVEL Routine 03/05/2021 12:14 Malignant neoplasm R esults for this PM SPEECH THERAPIST TECHNICIAN of uterus, not procedure are in otherwise specified the resu lts section. FRACTIONATED BILIRUBIN Routine 03/02/2021 9:33 Malignant neop lasm Results for this AM SPEECH THERAPIST TECHNICIAN of uterus, not procedure are in otherwise specified the resu lts section. TOTAL PROTEIN Routine 03/02/2021 9:33 Malignant neoplasm Resu lts for this AM SPEECH THERAPIST TECHNICIAN of uterus, not procedure are in otherwise specified the resu lts section. ASPARTATE Routine 03/02/2021 9:33 Malignant neoplasm Resul ts for this AMINOTRANSFERASE AM SPEECH THERAPIST TECHNICIAN of uterus, not procedure are in otherwise specified the resu lts section. ALANINE AMINOTRANSFERASE Routine 03/02/2021 9:33 Malignant ne oplasm Results for this AM SPEECH THERAPIST TECHNICIAN of uterus, not procedure are in otherwise specified the resu lts section. ALKALINE PHOSPHATASE Routine 03/02/2021 9:33 Malignant neopla sm Results for this AM SPEECH THERAPIST TECHNICIAN of uterus, not procedure are in otherwise specified the resu lts section. ALBUMIN LEVEL Routine 03/02/2021 9:33 Malignant neoplasm Resu lts for this AM SPEECH THERAPIST TECHNICIAN of uterus, not procedure are in otherwise specified the resu lts section. CALCIUM LEVEL TOTAL Routine 03/02/2021 9:33 Malignant neoplas m Results for this AM SPEECH THERAPIST TECHNICIAN of uterus, not procedure are in otherwise specified the resu lts section. .GLOMERULAR FILTRATION Routine 03/02/2021 9:33 Malignant neop lasm Results for this RATE AM SPEECH THERAPIST TECHNICIAN of uterus, not procedure are in otherwise specified the resu lts section. SERUM CREATININE Routine 03/02/2021 9:33 Malignant neoplasm R esults for this AM SPEECH THERAPIST TECHNICIAN of uterus, not procedure are in otherwise specified the resu lts section. ELECTROLYTE PANEL Routine 03/02/2021 9:33 Malignant neoplasm Results for this AM SPEECH THERAPIST TECHNICIAN of uterus, not procedure are in otherwise specified the resu lts section. BLOOD UREA NITROGEN Routine 03/02/2021 9:33 Malignant neoplas m Results for this AM SPEECH THERAPIST TECHNICIAN of uterus, not procedure are in otherwise specified the resu lts section. GLUCOSE LEVEL Routine 03/02/2021 9:33 Malignant neoplasm Resu lts for this AM SPEECH THERAPIST TECHNICIAN of uterus, not procedure are in otherwise specified the resu lts section. MANUAL DIFFERENTIAL Routine 03/02/2021 9:33 Malignant neoplas m Results for this AM SPEECH THERAPIST TECHNICIAN of uterus, not procedure are in otherwise specified the resu lts section. Results CBC Routine 03/02/2021 9:33 Malignant neoplasm Resul ts for this AM SPEECH THERAPIST TECHNICIAN of uterus, not procedure are in otherwise specified the resu lts section. PHOSPHORUS LEVEL Routine 03/02/2021 9:33 Malignant neoplasm R esults for this AM SPEECH THERAPIST TECHNICIAN of uterus, not procedure are in otherwise specified the resu lts section. MAGNESIUM LEVEL Routine 03/02/2021 9:33 Malignant neoplasm Re sults for this AM SPEECH THERAPIST TECHNICIAN of uterus, not procedure are in otherwise specified the resu lts section. COMPREHENSIVE METABOLIC Routine 03/02/2021 9:33 Malignant romel plasm PANEL AM SPEECH THERAPIST TECHNICIAN of uterus, not otherwise specified COMPLETE BLOOD COUNT W/ Routine 03/02/2021 9:33 Malignant romel plasm DIFFERENTIAL AM SPEECH THERAPIST TECHNICIAN of uterus, not otherwise specified FRACTIONATED BILIRUBIN Routine 02/23/2021 9:42 Malignant neop lasm Results for this AM SPEECH THERAPIST TECHNICIAN of uterus, not procedure are in otherwise specified the resu lts section. TOTAL PROTEIN Routine 02/23/2021 9:42 Malignant neoplasm Resu lts for this AM SPEECH THERAPIST TECHNICIAN of uterus, not procedure are in otherwise specified the resu lts section. ASPARTATE Routine 02/23/2021 9:42 Malignant neoplasm Resul ts for this AMINOTRANSFERASE AM SPEECH THERAPIST TECHNICIAN of uterus, not procedure are in otherwise specified the resu lts section. ALANINE AMINOTRANSFERASE Routine 02/23/2021 9:42 Malignant ne oplasm Results for this AM SPEECH THERAPIST TECHNICIAN of uterus, not procedure are in otherwise specified the resu lts section. ALKALINE PHOSPHATASE Routine 02/23/2021 9:42 Malignant neopla sm Results for this AM SPEECH THERAPIST TECHNICIAN of uterus, not procedure are in otherwise specified the resu lts section. ALBUMIN LEVEL Routine 02/23/2021 9:42 Malignant neoplasm Resu lts for this AM SPEECH THERAPIST TECHNICIAN of uterus, not procedure are in otherwise specified the resu lts section. CALCIUM LEVEL TOTAL Routine 02/23/2021 9:42 Malignant neoplas m Results for this AM SPEECH THERAPIST TECHNICIAN of uterus, not procedure are in otherwise specified the resu lts section. .GLOMERULAR FILTRATION Routine 02/23/2021 9:42 Malignant neop lasm Results for this RATE AM SPEECH THERAPIST TECHNICIAN of uterus, not procedure are in otherwise specified the resu lts section. SERUM CREATININE Routine 02/23/2021 9:42 Malignant neoplasm R esults for this AM SPEECH THERAPIST TECHNICIAN of uterus, not procedure are in otherwise specified the resu lts section. ELECTROLYTE PANEL Routine 02/23/2021 9:42 Malignant neoplasm Results for this AM SPEECH THERAPIST TECHNICIAN of uterus, not procedure are in otherwise specified the resu lts section. BLOOD UREA NITROGEN Routine 02/23/2021 9:42 Malignant neoplas m Results for this AM SPEECH THERAPIST TECHNICIAN of uterus, not procedure are in otherwise specified the resu lts section. GLUCOSE LEVEL Routine 02/23/2021 9:42 Malignant neoplasm Resu lts for this AM SPEECH THERAPIST TECHNICIAN of uterus, not procedure are in otherwise specified the resu lts section. MANUAL DIFFERENTIAL Routine 02/23/2021 9:42 Malignant neoplas m Results for this AM SPEECH THERAPIST TECHNICIAN of uterus, not procedure are in otherwise specified the resu lts section. Results CBC Routine 02/23/2021 9:42 Malignant neoplasm Resul ts for this AM SPEECH THERAPIST TECHNICIAN of uterus, not procedure are in otherwise specified the resu lts section. PHOSPHORUS LEVEL Routine 02/23/2021 9:42 Malignant neoplasm R esults for this AM SPEECH THERAPIST TECHNICIAN of uterus, not procedure are in otherwise specified the resu lts section. MAGNESIUM LEVEL Routine 02/23/2021 9:42 Malignant neoplasm Re sults for this AM SPEECH THERAPIST TECHNICIAN of uterus, not procedure are in otherwise specified the resu lts section. COMPREHENSIVE METABOLIC Routine 02/23/2021 9:42 Malignant romel plasm PANEL AM SPEECH THERAPIST TECHNICIAN of uterus, not otherwise specified COMPLETE BLOOD COUNT W/ Routine 02/23/2021 9:42 Malignant romel plasm DIFFERENTIAL AM SPEECH THERAPIST TECHNICIAN of uterus, not otherwise specified QIAC SERVICES Routine 02/16/2021 12:27 Malignant neoplasm Resu lts for this PM SPEECH THERAPIST TECHNICIAN of endometrium procedure are in the results section. URINALYSIS MICROSCOPIC Routine 02/16/2021 10:39 R esults for this AM SPEECH THERAPIST TECHNICIAN procedure are i n the results section. MANUAL DIFFERENTIAL Routine 02/16/2021 10:39 Malignant neoplas m Results for this AM SPEECH THERAPIST TECHNICIAN of endometrium procedure are in the results section. Results CBC Routine 02/16/2021 10:39 Malignant neoplasm Resul ts for this AM SPEECH THERAPIST TECHNICIAN of endometrium procedure are in the results section. FRACTIONATED BILIRUBIN Routine 02/16/2021 10:39 Malignant neop lasm Results for this AM SPEECH THERAPIST TECHNICIAN of endometrium procedure are in the results section. TOTAL PROTEIN Routine 02/16/2021 10:39 Malignant neoplasm Resu lts for this AM SPEECH THERAPIST TECHNICIAN of endometrium procedure are in the results section. ASPARTATE Routine 02/16/2021 10:39 Malignant neoplasm Resul ts for this AMINOTRANSFERASE AM SPEECH THERAPIST TECHNICIAN of endometrium procedure are in the results section. ALANINE AMINOTRANSFERASE Routine 02/16/2021 10:39 Malignant ne oplasm Results for this AM SPEECH THERAPIST TECHNICIAN of endometrium procedure are in the results section. ALKALINE PHOSPHATASE Routine 02/16/2021 10:39 Malignant neopla sm Results for this AM SPEECH THERAPIST TECHNICIAN of endometrium procedure are in the results section. ALBUMIN LEVEL Routine 02/16/2021 10:39 Malignant neoplasm Resu lts for this AM SPEECH THERAPIST TECHNICIAN of endometrium procedure are in the results section. CALCIUM LEVEL TOTAL Routine 02/16/2021 10:39 Malignant neoplas m Results for this AM SPEECH THERAPIST TECHNICIAN of endometrium procedure are in the results section. .GLOMERULAR FILTRATION Routine 02/16/2021 10:39 Malignant neop lasm Results for this RATE AM SPEECH THERAPIST TECHNICIAN of endometrium procedure are in the results section. SERUM CREATININE Routine 02/16/2021 10:39 Malignant neoplasm R esults for this AM SPEECH THERAPIST TECHNICIAN of endometrium procedure are in the results section. ELECTROLYTE PANEL Routine 02/16/2021 10:39 Malignant neoplasm Results for this AM SPEECH THERAPIST TECHNICIAN of endometrium procedure are in the results section. BLOOD UREA NITROGEN Routine 02/16/2021 10:39 Malignant neoplas m Results for this AM SPEECH THERAPIST TECHNICIAN of endometrium procedure are in the results section. GLUCOSE LEVEL Routine 02/16/2021 10:39 Malignant neoplasm Resu lts for this AM SPEECH THERAPIST TECHNICIAN of endometrium procedure are in the results section. MAGNESIUM LEVEL Routine 02/16/2021 10:39 Malignant neoplasm Re sults for this AM SPEECH THERAPIST TECHNICIAN of endometrium procedure are in the results section. COMPREHENSIVE METABOLIC Routine 02/16/2021 10:39 Malignant romel plasm PANEL AM SPEECH THERAPIST TECHNICIAN of endometrium COMPLETE BLOOD COUNT W/ Routine 02/16/2021 10:39 Malignant romel plasm DIFFERENTIAL AM SPEECH THERAPIST TECHNICIAN of endometrium CANCER ANTIGEN 15-3 Routine 02/16/2021 10:39 Malignant neoplas m Results for this AM SPEECH THERAPIST TECHNICIAN of endometrium procedure are in the results section. CANCER ANTIGEN 125 Routine 02/16/2021 10:39 Malignant neoplasm Results for this AM SPEECH THERAPIST TECHNICIAN of endometrium procedure are in the results section. BHCG Routine 02/16/2021 10:39 Malignant neoplasm Res ults for this AM SPEECH THERAPIST TECHNICIAN of endometrium procedure are in the results section. URINALYSIS WITH Routine 02/16/2021 10:39 Malignant neoplasm Re sults for this MICROSCOPIC IF INDICATED AM SPEECH THERAPIST TECHNICIAN of endometrium p rocedure are in the results section. THYROID STIMULATING Routine 02/16/2021 10:39 Malignant neoplas m Results for this HORMONE AM SPEECH THERAPIST TECHNICIAN of endometrium procedure are in the results section. PHOSPHORUS LEVEL Routine 02/16/2021 10:39 Malignant neoplasm R esults for this AM SPEECH THERAPIST TECHNICIAN of endometrium procedure are in the results section. FREE THYROXINE Routine 02/16/2021 10:39 Malignant neoplasm Res ults for this AM SPEECH THERAPIST TECHNICIAN of endometrium procedure are in the results section. ECHOCARDIOGRAM 2D Routine 02/13/2021 2:25 Malignant neoplasm Results for this COMPLETE PM SPEECH THERAPIST TECHNICIAN of endometrium procedure are in the results section. CT CHEST ABDOMEN PELVIS Routine 02/12/2021 12:55 Malignant romel plasm Results for this W WO CONTRAST PM SPEECH THERAPIST TECHNICIAN of endometrium procedure ar e in the results section. OCT, RETINA - OU - BOTH Routine 02/12/2021 10:43 Examination o f Results for this EYES AM SPEECH THERAPIST TECHNICIAN participant in procedure are in clinical research the result s section. FUNDUS PHOTOS - OU - Routine 02/12/2021 10:43 Examination of R esults for this BOTH EYES AM SPEECH THERAPIST TECHNICIAN participant in procedure are in clinical research the result s section. EKG, 12-LEAD (SCHEDULED) Routine 02/12/2021 Malignant neopla sm of endometrium PETCT SUBSEQUENT Routine 02/04/2021 10:44 Malignant neoplasm R esults for this TREATMENT STRATEGY AM SPEECH THERAPIST TECHNICIAN of endometrium procedu re are in the results section. VERIFY CATHETER TIP Routine 02/03/2021 4:10 Encounter for Res ults for this PLACEMENT PM SPEECH THERAPIST TECHNICIAN adjustment and procedure are in management of the results vascular catheters section. TMP HCVAB INTERP Routine 02/02/2021 4:44 Results for this PM SPEECH THERAPIST TECHNICIAN procedure are i n the results section. TMP HIV 1/2 AG&AB PATH Routine 02/02/2021 4:44 R esults for this INTERP PM SPEECH THERAPIST TECHNICIAN procedure are i n the results section. TMP INTERPRETATION Routine 02/02/2021 4:44 Resul ts for this ANTIBODY SCREEN NEGATIVE PM SPEECH THERAPIST TECHNICIAN pro cedure are in the results section. CLOT EXPIRATION DATE Routine 02/02/2021 4:44 Res ults for this PM SPEECH THERAPIST TECHNICIAN procedure are i n the results section. HEPATITIS B SURFACE AG Routine 02/02/2021 4:44 R esults for this W/CONFIRM PM SPEECH THERAPIST TECHNICIAN procedure are i n the results section. ANTIBODY SCREEN Routine 02/02/2021 4:44 Malignant neoplasm Re sults for this PM SPEECH THERAPIST TECHNICIAN of endometrium procedure are in the results section. ABORH Routine 02/02/2021 4:44 Malignant neoplasm Resul ts for this PM SPEECH THERAPIST TECHNICIAN of endometrium procedure are in the results section. .GLOMERULAR FILTRATION Routine 02/02/2021 4:44 Malignant neop lasm Results for this RATE PM SPEECH THERAPIST TECHNICIAN of endometrium procedure are in the results section. SERUM CREATININE Routine 02/02/2021 4:44 Malignant neoplasm R esults for this PM SPEECH THERAPIST TECHNICIAN of endometrium procedure are in the results section. MANUAL DIFFERENTIAL Routine 02/02/2021 4:44 Malignant neoplas m Results for this PM SPEECH THERAPIST TECHNICIAN of endometrium procedure are in the results section. Results CBC Routine 02/02/2021 4:44 Malignant neoplasm Resul ts for this PM SPEECH THERAPIST TECHNICIAN of endometrium procedure are in the results section. GLUCOSE, RANDOM Routine 02/02/2021 4:44 Malignant neoplasm Re sults for this PM SPEECH THERAPIST TECHNICIAN of endometrium procedure are in the results section. BLOOD UREA NITROGEN Routine 02/02/2021 4:44 Malignant neoplas m Results for this PM SPEECH THERAPIST TECHNICIAN of endometrium procedure are in the results section. SERUM CREATININE Routine 02/02/2021 4:44 Malignant neoplasm PM SPEECH THERAPIST TECHNICIAN of endometrium FRACTIONATED BILIRUBIN Routine 02/02/2021 4:44 Malignant neop lasm Results for this PM SPEECH THERAPIST TECHNICIAN of endometrium procedure are in the results section. ASPARTATE Routine 02/02/2021 4:44 Malignant neoplasm Resul ts for this AMINOTRANSFERASE PM SPEECH THERAPIST TECHNICIAN of endometrium procedure are in the results section. ALANINE AMINOTRANSFERASE Routine 02/02/2021 4:44 Malignant ne oplasm Results for this PM SPEECH THERAPIST TECHNICIAN of endometrium procedure are in the results section. ELECTROLYTE PANEL Routine 02/02/2021 4:44 Malignant neoplasm Results for this PM SPEECH THERAPIST TECHNICIAN of endometrium procedure are in the results section. MAGNESIUM LEVEL Routine 02/02/2021 4:44 Malignant neoplasm Re sults for this PM SPEECH THERAPIST TECHNICIAN of endometrium procedure are in the results section. ALBUMIN LEVEL Routine 02/02/2021 4:44 Malignant neoplasm Resu lts for this PM SPEECH THERAPIST TECHNICIAN of endometrium procedure are in the results section. TYPE AND SCREEN Routine 02/02/2021 4:44 Malignant neoplasm PM SPEECH THERAPIST TECHNICIAN of endometrium HEPATITIS B SURFACE Routine 02/02/2021 4:44 Malignant neoplas m Results for this ANTIGEN, SERUM PM SPEECH THERAPIST TECHNICIAN of endometrium procedure a re in the results section. HIV-1/2 ANTIGEN AND Routine 02/02/2021 4:44 Malignant neoplas m Results for this ANTIBODIES, FOURTH PM SPEECH THERAPIST TECHNICIAN of endometrium procedu re are in GENERATION the results section. HEPATITIS C VIRUS Routine 02/02/2021 4:44 Malignant neoplasm Results for this ANTIBODY PM SPEECH THERAPIST TECHNICIAN of endometrium procedure are in the results section. THYROID STIMULATING Routine 02/02/2021 4:44 Malignant neoplas m Results for this HORMONE PM SPEECH THERAPIST TECHNICIAN of endometrium procedure are in the results section. CANCER ANTIGEN 125 Routine 02/02/2021 4:44 Malignant neoplasm Results for this PM SPEECH THERAPIST TECHNICIAN of endometrium procedure are in the results section. HEMOGLOBIN A1C Routine 02/02/2021 4:44 Malignant neoplasm Res ults for this PM SPEECH THERAPIST TECHNICIAN of endometrium procedure are in the results section. COMPLETE BLOOD COUNT W/ Routine 02/02/2021 4:44 Malignant romel plasm DIFFERENTIAL PM SPEECH THERAPIST TECHNICIAN of endometrium CONFIRM ABORH TYPE Routine 02/02/2021 4:42 Resul ts for this PM SPEECH THERAPIST TECHNICIAN procedure are i n the results section. XR CHEST 2 VW Routine 02/02/2021 1:51 Malignant neoplasm Resu lts for this PM SPEECH THERAPIST TECHNICIAN of endometrium procedure are in the results section. OSI CT CHEST ABDOMEN Routine 10/27/2020 1:02 Cancer Res ults for this PELVIS PM CDT procedure are i n the results section. after 05/08/2020 Results .Serum Creatinine (05/05/2021 5:12 AM SPEECH THERAPIST TECHNICIAN)Only the most recent of12 results within the time period is included. Pathologist Sig nature Creatinine 0.89 0.51 - 0.95 mg/dL [facility] CANCER C ENTER Specimen Blood Performing Organization Address City/State/ZIP Code Phon e Number [facility] CANCER Unless otherwise noted, [address] all lab tests performed by: Division of Pathology and Laboratory Medicine [id number] (ABNORMAL) .CBC (05/05/2021 5:12 AM SPEECH THERAPIST TECHNICIAN)Only the most recent of13 resultswithin the time period is included. [facility] WBC 7.7 4.0 - 11.0 [facility] K/uL [facility] RBC 2.82 (L) 4.00 - 5.50 [facility] M/uL [facility] Hgb 8.4 (L) 12.0 - 16.0 [facility] gm/dL [facility] Hct 26.4 (L) 37.0 - 47.0 % [facility] MCV 94 82 - 98 fL [facility] MCH 29.8 27.0 - 31.0 pg [facility] MCHC 31.8 31.0 - 36.0 [facility] gm/dL [facility] RDW-SD 45.6 35.1 - 46.3 fL [facility] RDW-CV 13.3 12.0 - 15.5 % [facility] Platelet count 238 140 - 440 K/uL [facility] MPV 8.8 4.0 - 10.4 fL [facility] INRBC 0.0 <=0.0 % [facility] Comment: CANCER CENTER The INRBC (instrument NRBC) value reflects the enumera tion of nucleated red blood cells contained in a 200uL samp le of whole blood analyzed by the instrument. This value may differ from the NRBC value reported in a manual differ ential, which is based on a 100 cell differential. Specimen Blood Performing Organization Address City/State/ZIP Code Phon e Number [facility] Unless otherwise noted, [address] all lab tests performed by: Division of Pathology and Laboratory Medicine [id number] [place] Glomerular Filtration Rate (05/05/2021 5:12 AM SPEECH THERAPIST TECHNICIAN)Only the most recent of12 resultswithin the time period is included. Pathologist [facility] eGFR-AA 74 >=60 [facility] Comment: mL/min/1.73 [facility] Normal eGFR: >= 60 mL/min/1.73 m2 sq. m Note: The eGFR is calculated using the CKD-EPI equation. The eGFR declines with age. eGFR <60 mL/min/1.73 m2 is considered as "decreased". This equation should only be used for patients 18 and older. According to the National dney Foundation's Kidney Disease Outcome Quality Initiative (KDOQI) classification and 2012 Kidney Disease Improving Global Outcomes (KDIGO) Clinical Practice Guideline, the stage of CKD should be categorized based on estimated GFR. Stage Description GFR mL/min/1.73 m2 1 Normal or high GFR >=90 2 Mildly decreased GFR 60-89 3a Mildly to moderately decreased GFR 45-59 3b Moderately to severely decreased GFR 30-44 4 Severely decreased GFR 15-29 5 Kidney failure <15 eGFR-LORELEI 65 >=60 [facility] Comment: mL/min/1.73 [facility] Normal eGFR: >= 60 mL/min/1.73 m2 sq. m Note: The eGFR is calculated using the CKD-EPI equation. The eGFR declines with age. eGFR <60 mL/min/1.73 m2 is considered as "decreased". This equation should only be used for patients 18 and older. According to the National dney Foundation's Kidney Disease Outcome Quality Initiative (KDOQI) classification and 2012 Kidney Disease Improving Global Outcomes (KDIGO) Clinical Practice Guideline, the stage of CKD should be categorized based on estimated GFR. Stage Description GFR mL/min/1.73 m2 1 Normal or high GFR >=90 2 Mildly decreased GFR 60-89 3a Mildly to moderately decreased GFR 45-59 3b Moderately to severely decreased GFR 30-44 4 Severely decreased GFR 15-29 5 Kidney failure <15 Specimen Blood Performing Organization Address City/State/ZIP Code Phon e Number [facility] CANCER Unless otherwise noted, [place] [address] [place] all lab tests performed by: Division of Pathology and Laboratory Medicine Robbie Coronado (ABNORMAL) Differential (05/05/2021 5:12 AM SPEECH THERAPIST TECHNICIAN)Only the most recent of13 resultswithin the time period is included. Neutrophil % 77.2 (H) 42.0 - 66.0 % [facility] Lymphocyte % 10.2 (L) 24.0 - 44.0 % [facility] Monocyte % 9.4 (H) 2.0 - 7.0 % [facility] Eosinophil % 2.0 1.0 - 4.0 % [facility] Basophil % 0.4 0.0 - 1.0 % [facility] IGRE % 0.8 (H)Comment: 0.0 - 0.4 % [facility] IGRE % count [facility] includes Metamyelocytes, Myelocytes, and Promyelocytes. Neutrophil Abs 5.94 1.70 - 7.30 [facility] Lymphocyte Abs 0.78 (L) 1.00 - 4.80 [facility] Monocyte Abs 0.72 (H) 0.08 - 0.70 [facility] Eosinophil Abs 0.15 0.04 - 0.40 [facility] Basophil Abs 0.03 0.00 - 0.10 [facility] IG Abs 0.06 (H) 0.00 - 0.04 [facility] Specimen Blood Performing Organization Address City/[facility] Phon e Number [facility] Unless otherwise noted, [address] all lab tests performed by: Division of Pathology and Laboratory Medicine [address] [place] BUN (05/05/2021 5:12 AM SPEECH THERAPIST TECHNICIAN)Only the most recent of12 resultswithin the time period is included. Pathologist Sig nature BUN 11 6 - 23 mg/dL [facility] Specimen Blood Performing Organization Address City/[facility] Phon e Number [facility] Unless otherwise noted, [address] all lab tests performed by: Division of Pathology and Laboratory Medicine [address] [place] Phosphorus Level (05/05/2021 5:12 AM SPEECH THERAPIST TECHNICIAN)Only the most recent of11 results within the time period is included. Pathologist Sig nature Phosphorus 2.8 2.5 - 4.5 mg/dL [facility] TER Specimen Blood Performing Organization Address City/[facility] Phon e Number [facility] Unless otherwise noted, [address] all lab tests performed by: Division of Pathology and Laboratory Medicine [address] [place] (ABNORMAL) Magnesium Level (05/05/2021 5:12 AM SPEECH THERAPIST TECHNICIAN)Only the most recent of12 resultswithin the time period is included. Pathologist Sig nature Magnesium 1.5 (L) 1.6 - 2.6 mg/dL [facility] Specimen Blood Performing Organization Address [facility] Phon e Number [facility] CANCER Unless otherwise noted, [address] all lab tests performed by: Division of Pathology and Laboratory Medicine [address] [place] (ABNORMAL) Glucose Level (05/05/2021 5:12 AM SPEECH THERAPIST TECHNICIAN)Only the most recent of11 resultswithin the time period is included. Glucose Level 122 (H) 70 - 99 mg/dL [facility] Comment: CANCER CENTER Effective 10/01/15, the gluco se reference intervals have been updated based on [place] [employer] guidelines (Standards of Medical Care in Diabetes 2016. Diabetes Care 2016; 39: S13-S22). Fasting blood glucose: Normal: 70-99 mg/dL Impaired fasting glucose (in creased risk for diabetes or pre-diabetes): 100- 125 mg/dL Diabetes mellitus: >/=126 mg/dL Random blood glucose: Normal: 70-199 mg/dL Note: Random glucose >100 mg/dL is assoc iated with increased risk for diabetes Specimen Blood Performing Organization Address [facility] Phon e Number [facility] CANCER Unless otherwise noted, [address] all lab tests performed by: Division of Pathology and Laboratory Medicine [address] [place] Calcium Level (05/05/2021 5:12 AM SPEECH THERAPIST TECHNICIAN)Only the most recent of11 resultswithin the time period is included. Pathologist Sig nature Calcium Lvl 9.4 8.4 - 10.2 mg/dL [facility] NTER Specimen Blood Performing Organization Address [facility] Phon e Number [facility] CANCER Unless otherwise noted, [address] all lab tests performed by: Division of Pathology and Laboratory Medicine [address] [place] (ABNORMAL) Electrolyte Panel (05/05/2021 5:12 AM SPEECH THERAPIST TECHNICIAN)Only the most recent of12 resultswithin the time period is included. Pathologist Sig nature Sodium Lvl 132 (L) 136 - 145 mEq/L [facility] Potassium Lvl 4.1 3.5 - 5.1 mEq/L [facility] Chloride 100 98 - 107 mEq/L [facility] CO2 20 (L) 22 - 29 mEq/L [facility] Anion Gap 12 4 - 14 mEq/L [facility] Specimen Blood Performing Organization Address City/State/ZIP Code Phon e Number [facility] CANCER Unless otherwise noted, [place] [address] CENTER all lab tests performed by: Division of Pathology and Laboratory Medicine [address] Abdomen Pelvis with Contrast (05/04/2021 10:17 PM SPEECH THERAPIST TECHNICIAN) Specimen Impressions [id number] - 05/05/2021 11:02 AM SPEECH THERAPIST TECHNICIAN 1. Redemonstration of heterogeneous vaginal cuff mass which is similar to 04/08/2021 imaging though appears enlarged when compared to 02/12/2021. 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 Persistent invasion of t he rectosigmoid colon. 2. New moderate right hydroureteroneph rosis with ureteral dilatation to level of the pelvic mass. 3. Slight decrease in size of a lower para-aortic lymph node. This Final report includes changes to re sident preliminary version(s). Prior version(s) can be found in [employer] through the Result History link. I personally reviewed these image(s) neville sanchez with the resident's/fellow's interpretations, certify that if a procedure was performed I was physically present, and agree with the final report. Narrative [id number] - 05/05/2021 11:02 AM SPEECH THERAPIST TECHNICIAN FULL RESULT: Examination: CT ABDOMEN PELVIS W CONTRAS T, 05/04/2021 10:17 PM Clinical History: Uncontrolled pain. 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 Indication: severe suprapubic pain Comparison: 02/12/2021, 04/08/2021 Technique: CT of abdomen and pelvis was performed with intravenous and oral contrast. Findings: Lower thorax: Subcentimeter right lower lobe pulmonary nodules not significantly changed. Bibasilar dependent changes. Liver: Unchanged mild dilatation of the biliary tree. No suspicious liver lesions. Gallbladder: Unremarkable. Spleen: No splenomegaly. Pancreas: Small subcentimeter low-attenu ation foci in the pancreas such as in the tail and head are not significantly changed. Adrenals: Unremarkable. No suspicious ad renal lesion. Kidneys: There is a new moderate right h ydroureteronephrosis with ureteral dilatation to the level of the pelvic mass described further detail below (series 601 image 50). No hydronephrosis on the left. Bilateral renal cysts. Bowel: Status post end colostomy in the left mid abdomen. Emanuel invasion of a segment of rectosigmoid colon by the vaginal cuff mass, as before and described in further detail below. Persistent circumfe rential wall thickening of the rectum wh ich may be secondary to prior radiation. Peritoneum: No pneumoperitoneum or free fluid. Lymph nodes and vessels: 6 mm short axis para-aortic lymph node has decreased in size producing measuring 9 mm when using same measurement technique (series 3 image 824). Pelvis: Large heterogeneous tumor arisin g from the vaginal cuff and invading the rectum and urinary bladder is grossly grossly similar in size compared to outside CT performed 04/08/2021 allowing for di fferences in technique, though is increa sed in size when compared to 02/12/2021 imaging measuring 5.4 cm in oblique AP (series 3 image 127; previously 4.5 cm when using same measurement technique). Tumo r also invades posterior bladder wall wi th resultant vesicle vaginal fistula (series 602 images 71-73). Persistent circumferential thickening of the urinary bladder. Bones: Findings in keeping with prior fr acture in the pelvic rim grossly unchanged compared to prior study. Other: Atherosclerosis with occluded rig ht superficial femoral artery, as before. Procedure Note Rafi Singh MD - 05/05/2021 FULL RESULT: Examination: CT ABDOMEN PELVIS W MALICK Cook, 05/04/2021 10:17 PM Clinical History: Uncontrolled pain. 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 Indication: severe suprapubic pain Comparison: 02/12/2021, 04/08/2021 Technique: CT of abdomen and pelvis was performed with intravenous and oral contrast. Findings: Lower thorax: Subcentimeter right lower lobe pulmonary nodules not significantly changed. Bibasilar dependent changes. Liver: Unchanged mild dilatation of the biliary tree. No suspicious liver lesions. Gallbladder: Unremarkable. Spleen: No splenomegaly. Pancreas: Small subcentimeter low-attenu ation foci in the pancreas such as in the tail and head are not significantly changed. Adrenals: Unremarkable. No suspicious ad renal lesion. Kidneys: There is a new moderate right h ydroureteronephrosis with ureteral dilatation to the level of the pelvic mass described further detail below (series 601 image 50). No hydronephrosis on the left. Bilateral renal cysts. Bowel: Status post end colostomy in the left mid abdomen. Emanuel invasion of a segment of rectosigmoid colon by the vaginal cuff mass, as before and described in further detail below. Persistent circumferential wall thickening of the rectum which may be se condary to prior radiation. Peritoneum: No pneumoperitoneum or free fluid. Lymph nodes and vessels: 6 mm short axis para-aortic lymph node has decreased in size producing measuring 9 mm when using same measurement technique (series 3 image 824). Pelvis: Large heterogeneous tumor arisin g from the vaginal cuff and invading the rectum and urinary bladder is grossly grossly similar in size compared to outside CT performed 04/08/2021 allowing for differences in technique, though is increased in size w hen compared to 02/12/2021 imaging measuring 5.4 cm in oblique AP (series 3 image 127; previously 4.5 cm when using same measurement technique). Tumor also invades posterior bladder wall with resultant vesicle vaginal fist wesley (series 602 images 71-73). Persistent circumferential thickening of the urinary bladder. Bones: Findings in keeping with prior fr acture in the pelvic rim grossly unchanged compared to prior study. Other: Atherosclerosis with occluded rig ht superficial femoral artery, as before. IMPRESSION: 1. Redemonstration of heterogeneous vag inal cuff mass which is similar to 04/08/2021 imaging though appears enlarged when compared to 02/12/2021. 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 Persistent invasion of the rectosigmoid colon. 2. New moderate right hydroureteronephr osis with ureteral dilatation to level of the pelvic mass. 3. Slight decrease in size of a lower p nneka-aortic lymph node. This Final report includes changes to re sident preliminary version(s). Prior version(s) can be found in [employer] through the Result History link. I personally reviewed these image(s) neville sanchez with the resident's/fellow's interpretations, certify that if a procedure was performed I was physically present, and agree with the final report. Performing Organization Address City/State/ZIP Code Phon e Number [id number] COVID-19 (SARS-CoV-2)Asymptomatic-LT (05/04/2021 12:27 PM SPEECH THERAPIST TECHNICIAN)Only the most recent of2 resultswithin the time period is included. COVID19 Not Detected Not Detected [facility] (SARS-CoV-2) [facility] COVID19 SARS Inpatient Admission [facility] Indication CANCER CENTER Covid 19 Comment See Note [facility] Comment: [facility] The denise SARS-CoV-2 nucleic acid test for use on the denise Estrella System is a real-time RT-PCR assay intended for the qualitative detection of SARS-CoV-2 (COVID-19) viral RNA in nasopharyngeal swabs from either individuals suspected of COVID-19 by their healthcare provider or from any individual, including individuals without symptoms or other reasons to suspect COVID-19. A fact sheet for patients provided by the [employer] ([employer]) can be reviewed at: https://www.fda.gov/media/15 1897/download. A fact sheet for Health Care providers is provided by the [employer] ([employer]) and can be reviewed at: https://www.fda.gov/media/376210/download Results must be interpreted within the context of all relevant clinical and laboratory findings and should not form the sole basis for a diagnosis or treatment decision. Positive results do not rule out bacterial infection or co- infection with other viruses. Negative results do not preclude SARS-CoV-2 infection and must be combined with clinical observations, patient history, and/or epidemiological information. This assay has been authoriz ed by the FDA for use only under Emergency Use Authorization (EUA) in laboratories that have been CLIA-certified to perform moderate-complexity and high-complexity tests. The Microbiology Laboratory at [facility], CLIA Accreditation # [id number] and CAP Accreditation #[id number], verified the performance characteristics of this assay. Internal controls are used to monitor all stages of the test process. Specimen Nasopharyngeal Swab Performing Organization Address City/State/ZIP Code Phon e Number [facility] CANCER Unless otherwise noted, [place] [address] CENTER all lab tests performed by: Division of Pathology and Laboratory Medicine Robbie Coronado (ABNORMAL) Urine Culture (05/04/2021 10:42 AM SPEECH THERAPIST TECHNICIAN)Only the most recent of3 resultswithin the time period is included. Pathologist [facility] Final Report 10 - 50,000 cfu/ml Streptococcus agalactiae ([place] up B) [facility] ... CANCER CENTER 10 - 50,000 cfu/ml Normal site eduardo present. (A) Path Review - The results have been review ed and electronically signed by Pathologist: [facility] Urine WILLY ELLISON MD #[id number] CANCER CENTE R (A) Specimen Urine Performing Organization Address City/[facility] Phon e Number [facility] CANCER Unless otherwise noted, [place] [address] CENTER all lab tests performed by: Division of Pathology and Laboratory Medicine [address] [facility] Fractionated Bilirubin (05/04/2021 8:47 AM SPEECH THERAPIST TECHNICIAN)Only the most recent of10 resultswithin the time period is included. Bili Total 0.3 <=1.2 mg/dL [facility] Comment: DIAGNOSTIC CENTER Indocyanine Green (ICG) may cause falsely elevated bilirubin results. Total and direct bilirubin must not be measured from samples containing indocyanine green. False elevation of total vangie irubin can be seen in patients with IgG concentrations above 28 g/L. Bili Direct <0.2Comment: <=0.3 mg/dL [facility] Indocyanine Green DIAGNOSTIC CENTER (ICG) may cause falsely elevated bilirubin results. Total and direct bilirubin must not be measured from samples containing indocyanine green. Bili Indirect See NoteComment: 0.0 - 0.9 [facility] Unable to calculate mg/dL DIAGNOSTIC CENTER Indirect Bilirubin result due to some parameters are outside reportable range Specimen Blood Performing Organization Address City/[facility] Phon e Number [facility] DIAGNOSTIC Unless otherwise noted, [place] [address] CENTER all lab tests performed by: Division of Pathology and Laboratory Medicine [address] [facility] (ABNORMAL) Urinalysis with Microscopic (05/04/2021 8:47 AM SPEECH THERAPIST TECHNICIAN)Only the most recent of4 resultswithin the time period is included. Pathologist Sig nature UA WBC >182 (H) 0 - 2 /HPF [facility] UA RBC 56 (H) 0 - 2 /HPF [facility] UA Mucous NOT SEEN Not Seen-Trace /HPF [facility] UA Bacteria NOT SEEN NOT SEEN /HPF [facility] UA Squam Epi NOT SEEN None-Occasional [facility] CANCER /HPF CENTER UA Trans Epi 3+ (A) NOT SEEN /HPF [facility] UA WBC Clump 2+ (A) NOT SEEN /HPF [facility] Specimen Urine Narrative [facility] - 2 11:39 AM SPEECH THERAPIST TECHNICIAN Some reporting parameters within the Urinalysis test have changed due to the implementation of new in strumentation in the [employer], allowi ng greater sensitivity of measurement. Urinalysis results reported by the [facility] using existing instrumentation, as well as Urinalysis t esting performed manually or by backup methodology at the [facility] will remain relatively unchanged. New reporting parameters and units will now be reported for all campuses. Performing Organization Address City/[facility] Phon e Number [facility] CANCER Unless otherwise noted, [address] all lab tests performed by: Division of Pathology and Laboratory Medicine [facility] [employer] (ABNORMAL) Urinalysis w/Microscopic if Indicated (05/04/2021 8:47 AM SPEECH THERAPIST TECHNICIAN)Only the most recent of4 resultswithin the time period is included. Pathologist Sig nature UA Color Yellow Straw-Yellow [facility] UA Appear Cloudy (A) Clear [facility] UA Glucose NEG NEG mg/dL [facility] UA Bili NEG NEG [facility] UA Ketones NEG NEG mg/dL [facility] UA Spec Grav 1.023 1.003 - 1.035 [facility] UA Blood Small (A) NEG [facility] UA pH 5.0 5.0 - 9.0 [facility] UA Protein 100 (A) NEG mg/dL [facility] UA Urobilinogen NEG NEG [facility] UA Nitrite NEG NEG [facility] UA Leuk Est Moderate (A) NEG [facility] Specimen Urine Performing Organization Address City/[facility] Phon e Number [facility] CANCER Unless otherwise noted, [place], [place] [id number] [place] [address] all lab tests performed by: Division of Pathology and Laboratory Medicine [facility] [employer] (ABNORMAL) ALT (05/04/2021 8:47 AM SPEECH THERAPIST TECHNICIAN)Only the most recent of10 resultswithin the time period is included. Pathologist Sig nature ALT 44 (H) <=33 U/L [facility] DIAGNOSTIC CE NTER Specimen Blood Performing Organization Address City/[facility] Phon e Number [facility] DIAGNOSTIC Unless otherwise noted, [place] [address] [place] all lab tests performed by: Division of Pathology and Laboratory Medicine [address] [place], [place] [address]d Aspartate Aminotransferase (05/04/2021 8:47 AM SPEECH THERAPIST TECHNICIAN)Only the most recent of10 resultswithin the time period is included. Pathologist Sig nature AST 20 <=32 U/L [facility] DIAGNOSTIC CE NTER Specimen Blood Performing Organization Address [facility] Phon e Number [facility] DIAGNOSTIC Unless otherwise noted, [address] all lab tests performed by: Division of Pathology and Laboratory Medicine [address] [place], [place] [address]vard Total Protein (05/04/2021 8:47 AM SPEECH THERAPIST TECHNICIAN)Only the most recent of9 resultswithin the time period is included. Pathologist Sig nature Total Protein 7.4 6.4 - 8.3 g/dL [facility] Specimen Blood Performing Organization Address [facility] Phon e Number [facility] DIAGNOSTIC Unless otherwise noted, [address] all lab tests performed by: Division of Pathology and Laboratory Medicine [address] [place] [address] (ABNORMAL) Alkaline Phosphatase (05/04/2021 8:47 AM SPEECH THERAPIST TECHNICIAN)Only the most recent of 9 resultswithin the time period is included. Pathologist Sig nature Alk Phos 395 (H) 35 - 104 U/L [facility] DIAGNOSTIC NT Specimen Blood Performing Organization Address [facility] Phon e Number [facility] DIAGNOSTIC Unless otherwise noted, [address] all lab tests performed by: Division of Pathology and Laboratory Medicine [address] [place], [place] [address]d Albumin Level (05/04/2021 8:47 AM SPEECH THERAPIST TECHNICIAN)Only the most recent of10 resultswithin the time period is included. Pathologist Sig nature Albumin Lvl 3.7 3.5 - 5.2 gm/dL [facility] Specimen Blood Performing Organization Address [facility] Phon e Number [facility] DIAGNOSTIC Unless otherwise noted, [address] all lab tests performed by: Division of Pathology and Laboratory Medicine [address] [place] [address] EKG, 12-Lead (04/13/2021) Specimen Narrative This result has an attachment that is no t available. Performing Organization Address [facility] Phon e Number DEMETRIS IECG CT Chest with Contrast (04/12/2021 12:14 PM SPEECH THERAPIST TECHNICIAN) Specimen Addenda Addendum by Corby Donohue MD on 04/13 8:46 AM SPEECH THERAPIST TECHNICIAN A previously described subcentimeter cys tic pancreatic tail abnormality is technically not well visualized on curre nt study. Stable minimal prominence of the partially visualized p ancreatic duct. Impressions [id number] - 04/13/2021 7:59 AM SPEECH THERAPIST TECHNICIAN 1. Elongated left lower lobe opacity is unchanged from prior imaging, morphologically concerning for possible metastasis or primary lesion. This lesion does not have apparent elevated metabolic activity on 02/04/2021, however, is relatively na rrow in diameter, therefore may be below the resolution of PET/CT. 2. New and some evolving groundglass opa cities in the lung parenchyma may reflect inflammatory/infectious etiologies, however, continued surveillance advised to exclude adenocarcinoma precursor lesions. 3. Continued surveillance of small solid nodules also advised. Narrative [id number] - 04/13/2021 7:59 AM SPEECH THERAPIST TECHNICIAN FULL RESULT: Examination: CT CHEST W CONTRAST, 04/12/19 12:14 PM Clinical History: Malignant neoplasm of endometrium Indication: restaging scan Comparison: 02/12/2021 Technique: CT of the chest was performed with intravenous contrast. Findings: Normal central airways. Biapical scarring. Mild emphysema. There is a persistent 15 x 6 mm elongate d nodule (series 10 image 85), with mildly spiculated borders. This does not appear significantly changed from prior imaging, however, remains concerning for possible primary or metastatic malignancy. A few 5 mm or smaller nodules previously identified are stable, from earliest study of 03/24/2020. A 2 mm right upper lobe nodule is stable from the prior study of 02/12/2021, not visible on the earliest study. Upper lobe predominant groundglass opaci ties are present measuring up to 1.5 cm. One approximately 1.5 cm opacity in the left upper lobe (image 32) is progressive from 02/12/2021, not present at 1. Right upper lobe 1 cm groundglass opa city (image 39) stable from prior study, larger than 03/24/2020. New clustered groundglass and nodular densities in the medial left lower lobe (images 52-54). No supraclavicular or axillary adenopath y. Stable borderline aorticopulmonary lymph nodes. Normal cardiac size; dense coronary calc ifications are present. Central venous access catheter terminates at atriocaval junction. Right adrenal linear calcification due t o prior trauma or infection. Partially visualized right renal cysts and nonobstructing right renal calculus. 9 mm left breast lateral nodule (image 7 8) contains eccentric small calcification, possibly benign, however, correlation with dedicated breast imaging advised if not recently performed. No aggressive osseous lesion. Right fift h rib is hypoplastic, potentially congenital or due to prior remote trauma/surgery. Procedure Note Corby Donohue MD - 04/13/2021 FULL RESULT: Examination: CT CHEST W CONTRAST, 04/12/19 12:14 PM Clinical History: Malignant neoplasm of endometrium Indication: restaging scan Comparison: 02/12/2021 Technique: CT of the chest was performed with intravenous contrast. Findings: Normal central airways. Biapical scarring. Mild emphysema. There is a persistent 15 x 6 mm elongate d nodule (series 10 image 85), with mildly spiculated borders. This does not appear significantly changed from prior imaging, however, remains concerning for possible primary or metastatic malignancy. A few 5 mm or smaller nodules previously identified are stable, from earliest study of 03/24/2020. A 2 mm right upper lobe nodule is stable from the prior study of 02/12/2021, not visible on the earliest study. Upper lobe predominant groundglass opaci ties are present measuring up to 1.5 cm. One approximately 1.5 cm opacity in the left upper lobe (image 32) is progressive from 02/12/2021, not present at 03/24/2020. Right upper lobe 1 cm groundglass opacity (image 39) stab le from prior study, larger than 03/24/2020. New clustered groundglass and nodular densities in the medial left lower lobe (images 52-54). No supraclavicular or axillary adenopath y. Stable borderline aorticopulmonary lymph nodes. Normal cardiac size; dense coronary calc ifications are present. Central venous access catheter terminates at atriocaval junction. Right adrenal linear calcification due t o prior trauma or infection. Partially visualized right renal cysts and nonobstructing right renal calculus. 9 mm left breast lateral nodule (image 7 8) contains eccentric small calcification, possibly benign, however, correlation with dedicated breast imaging advised if not recently performed. No aggressive osseous lesion. Right fift h rib is hypoplastic, potentially congenital or due to prior remote trauma/surgery. IMPRESSION: 1. Elongated left lower lobe opacity is unchanged from prior imaging, morphologically concerning for possible metastasis or primary lesion. This lesion does not have apparent elevated metabolic activity on 02/04/2021, however, is relatively narrow in diamete r, therefore may be below the resolution of PET/CT. 2. New and some evolving groundglass opa cities in the lung parenchyma may reflect inflammatory/infectious etiologies, however, continued surveillance advised to exclude adenocarcinoma precursor lesions. 3. Continued surveillance of small solid nodules also advised. Performing Organization Address City/State/ZIP Code Phon e Number [id number] (ABNORMAL) Urinalysis with Reflex to Microscopic Reference Lab (04/12/2021 10:56 AM SPEECH THERAPIST TECHNICIAN)Only the most recent of2 resultswithin the time period is included. Pathologist Sig nature UA Color YELLOW YELLOW [facility] Appear TURBID (A) CLEAR [facility] Bili NEGATIVE NEGATIVE [facility] Ketones NEGATIVE NEGATIVE [facility] Spec Grav 1.017 1.001 - 1.035 [facility] Blood 2+ (A) NEGATIVE [facility] pH 5.5 5.0 - 8.0 [facility] Protein 2+ (A) NEGATIVE [facility] Nitrite NEGATIVE NEGATIVE [facility] Leuk Est 2+ (A) NEGATIVE [facility] Glucose NEGATIVE NEGATIVE [facility] WBC > OR = 60 (A) < OR = 5 /HPF [facility] RBC 20-40 (A) < OR = 2 /HPF [facility] Squam Epi 0-5 < OR = 5 /HPF [facility] Bacteria NONE SEEN NONE SEEN /HPF [facility] Hyal Cast NONE SEEN NONE SEEN /LPF [facility] Comment: Lab test performed by: Lab Mnemonic: [facility] [employer] [address] [id number] MALIA MEIER MD Specimen Urine Performing Organization Address City/State/ZIP Code Phon e Number [facility] CA 15-3 (04/12/2021 10:56 AM SPEECH THERAPIST TECHNICIAN)Only the most recent of3 resultswithin the time period is included. [place] 15-3 19.4 <=25.0 U/mL [facility] Comment: [facility] Results greater than 2400.0 U/mL may not be reliable due to matrix effect with extended dilution as it exceeds the drapery worker's recommended limit. Caution should be exercised when interpreting such va lues and done in conjunction with clinical context. This test is measured by tamara ctrochemiluminescence immunoassay on Travis Denise immunoassay analyzers. Results obtained in different methods are not interchangeable. Specimen Blood Performing Organization Address [facility] Phon e Number [facility] CANCER Unless otherwise noted, [address] all lab tests performed by: Division of Pathology and Laboratory Medicine [facility]5 [facility] CA 125 (04/12/2021 10:56 AM SPEECH THERAPIST TECHNICIAN)Only the most recent of4 resultswithin the time period is included. [place] 125 18.0 <=38.0 U/mL [facility] Comment: [facility] Results greater than 11,500. 0 U/mL may not be reliable due to matrix effect with extended dilution as it exceeds the drapery worker's recommended limit. Caution should be exercised when interpreting such values and done in conjunction with clinical context. This test is measured by tamara ctrochemiluminescence immunoassay on Travis Denise immunoassay analyzers. Results obtained in different methods are not interchangeable. Reference intervals are not available for male patients. Results should be interpreted in conjunction with clinical context. Specimen Blood Performing Organization Address [facility] Phon e Number [facility] CANCER Unless otherwise noted, [address] all lab tests performed by: Division of Pathology and Laboratory Medicine [address] [place] [address] (ABNORMAL) TSH (04/12/2021 10:56 AM SPEECH THERAPIST TECHNICIAN)Only the most recent of4 resultswithin the time period is included. Pathologist Sig nature TSH 0.23 (L) 0.27 - 4.20 [facility] mcunit/mL CENTER Specimen Blood Performing Organization Address [facility] Phon e Number [facility] Unless otherwise noted, [address] all lab tests performed by: Division of Pathology and Laboratory Medicine [address] [place] [address] Free T4 (04/12/2021 10:56 AM SPEECH THERAPIST TECHNICIAN)Only the most recent of3 resultswithin the time period is included. Pathologist Sig nature T4 Free 1.51 0.93 - 1.70 ng/dL [facility] C ENTER Specimen Blood Performing Organization Address [facility] Phon e Number [facility] Unless otherwise noted, [address] all lab tests performed by: Division of Pathology and Laboratory Medicine [address] [place] [address] OSI Chest (04/08/2021 11:52 AM SPEECH THERAPIST TECHNICIAN) Specimen Narrative Systemgenerated, Documentation - 022 11:52 AM SPEECH THERAPIST TECHNICIAN Study acquired at another institution. For comparison only. No [facility] originated interpretation requested or a vailable. OSI CT Abdomen and Pelvis (04/08/2021 11:52 AM SPEECH THERAPIST TECHNICIAN) Specimen Narrative Systemgenerated, Documentation - 022 11:52 AM SPEECH THERAPIST TECHNICIAN Study acquired at another institution. For comparison only. No [facility] originated interpretation requested or a vailable. Clot Expiration Date (04/03/2021 8:42 AM SPEECH THERAPIST TECHNICIAN)Only the most recent of3 results within the time period is included. Pathologist Sig nature T & S Expiration 04/06/2021 [facility] Specimen Blood Performing Organization Address City/[facility] Phon e Number [facility] Unless otherwise noted, [address] all lab tests performed by: Division of Pathology and Laboratory Medicine [address] [place] [address] TMP Interpretation Antibody Screen Negative (04/03/2021 8:42 AM SPEECH THERAPIST TECHNICIAN)Only the most recent of3 resultswithin the time period is included. TMP Auto Neg ABSC At the present time, patien t plasma shows no evidence of RBC alloantibodies. [facility] Interp Comment: [facility] MD Jair CAMACHO [id number] Dictated by: NEELAM DAVENPORT MD - 1 [id number] Dictated Date/Time: 04.04.19 12:30 PM SPEECH THERAPIST TECHNICIAN Transcribed Date/Time: 04.04.2021 12:30 PM SPEECH THERAPIST TECHNICIAN Electronically Signed By: MD Jair MOTA [id number] on 04.04.2021 12:30 PM Specimen Blood Performing Organization Address City/[facility] Phon e Number [facility] Unless otherwise noted, [address] all lab tests performed by: Division of Pathology and Laboratory Medicine [address] [place] ABORh (04/03/2021 8:42 AM SPEECH THERAPIST TECHNICIAN)Only the most recent of3 resultswithin the time period is included. Pathologist Sig nature ABORh. A POS [facility] Specimen Blood Performing Organization Address City/[facility]/ZIP Code Phon e Number [facility] Unless otherwise noted, [address] all lab tests performed by: Division of Pathology and Laboratory Medicine [facility] [facility] Antibody Screen (04/03/2021 8:42 AM SPEECH THERAPIST TECHNICIAN)Only the most recent of3 resultswithin the time period is included. Pathologist Sig nature ABSC. Negative ABSC [facility] R Specimen Blood Performing Organization Address City/[facility]/ZIP [facility] Phon e Number [facility] Unless otherwise noted, [address] all lab tests performed by: Division of Pathology and Laboratory Medicine [address] [place] (ABNORMAL) Hemoglobin (03/17/2021 6:47 AM SPEECH THERAPIST TECHNICIAN) Pathologist Sig nature Hgb 7.4 (L) 12.0 - 16.0 gm/dL [facility] Specimen Blood Performing Organization Address City/[facility]/ZIP Code Phon e Number [facility] Unless otherwise noted, [address] all lab tests performed by: Division of Pathology and Laboratory Medicine [address] [place] (ABNORMAL) Hematocrit (03/17/2021 6:47 AM SPEECH THERAPIST TECHNICIAN) Pathologist Sig nature Hct 23.7 (L) 37.0 - 47.0 % [facility] Specimen Blood Performing Organization Address City/[facility]/ZIP Code Phon e Number [facility] Unless otherwise noted, [address] all lab tests performed by: Division of Pathology and Laboratory Medicine [address] [place] Hemoglobin A1c (03/17/2021 4:00 AM SPEECH THERAPIST TECHNICIAN)Only the most recent of2 resultswithin the time period is included. Pathologist Sig nature A1C 5.6 4.3 - 5.6 % [facility] Comment: [facility] HbA1c values >=6.5% are diagnostic of diabetes mellitu s. Diagnosis should be confirmed by repeat testing. Therapeutic Action suggested: >8.0% HbA1c; Goal of therapy: <7.0% HbA1c Specimen Blood Performing Organization Address City/[facility]/ZIP Code Phon e Number [facility] CANCER Unless otherwise noted, [address] all lab tests performed by: Division of Pathology and Laboratory Medicine [address] [place] [address] (ABNORMAL) Lipid Panel (03/17/2021 4:00 AM SPEECH THERAPIST TECHNICIAN) Chol 102 <=199 mg/dL [facility] Comment: [facility] ATP III Classification of To chrissy Cholesterol Primary Target of Therapy (in mg/dL): <200 Desirable 200-239 Borderline high >=240 High Trig 218 (H) <=149 mg/dL [facility] Comment: [facility] ATP III Classification of Se rum Triglycerides Primary Target of Therapy (in mg/dL): <150 Normal 150-199 Borderline high 200-499 High >=500 Very high Non-fasting triglycerides >2 00 mg/dL may be followed up with a fasting Lipid Panel. Calculated LDL-C may be falsely decreased when non-fasting triglycerides >200 mg/dL. HDL 34 (L) >=40 mg/dL [facility] LDL 24 <=100 mg/dL [facility] Comment: [facility] ATP III Classification of LD L Cholesterol Primary Target of Therapy (in mg/dL): <100 Optimal 100-129 Near optimal/above optimal 130-159 Borderline high 160-189 High >=190 Very high VLDL 44 mg/dL [facility] Specimen Blood Performing Organization Address City/[facility] Code Phon e Number [facility] CANCER Unless otherwise noted, [address] all lab tests performed by: Division of Pathology and Laboratory Medicine [address] [place] [address] CTA Head and Neck with and without Contrast (03/16/2021 10:20 PM SPEECH THERAPIST TECHNICIAN) Specimen Impressions [id number] - 03/16/2021 10:48 PM SPEECH THERAPIST TECHNICIAN Moderate stenosis in right V2 segment ve rtebral artery. Mild stenosis of right and left common c arotid arteries and bulbs as well as proximal internal carotid arteries. No vessel occlusion or significant steno sis in the vessels of the [place]. Criteria for stenosis: Distal internal c arotid artery diameter was used as the denominator for carotid stenosis measurement. CAROTID STENOSIS REFERENCE: Mild = <50% stenosis. Moderate = 50-69% stenosis. Severe = 70-89% stenosis. Critical = 90-99% stenosis. Occluded = 100% stenosis. 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 Post-processed coronal, sagittal and 3D- reformatted images were also obtained. Findings: [place]: Anterior circulation: Vascular calcifica tion seen bilateral cavernous segments of internal carotid arteries without hemodynamically significant stenosis. The also vascular calcification is certainly int ernal carotid artery. The bilateral ante rior cerebral (ILIA) and middle cerebral (MCA) arteries are patent. The anterior communicating artery (ACOM) is seen without aneurysm. There is fenestration left A1 segment, variant of normal. Posterior circulation in the head: The i ntradural portions (V4 segment) of the vertebral arteries are patent. The basilar artery is normal in caliber. The left posterior communicating artery PCOM is seen and patent. The right posterior co mmunicating artery (PCOM) is not seen, normal variant There is no dural venous sinus thrombosi s. Aorta and great vessels: There is a thre e-vessel left-sided aortic arch. The origins of the great vessels are normal. Carotid arteries in the neck: Calcified atherosclerotic plaque is pres ent in right and left carotid bulbs extending into proximal internal carotid arteries without hemodynamically significant stenosis Right: Mild atherosclerotic plaque is no william in the common carotid artery without hemodynamically series stenosis. Left: Mild atherosclerotic plaque is not ed in the common carotid artery without hemodynamically series stenosis. Vertebral arteries in the neck: The ri ght vertebral artery is dominant.. Right: V2 segment moderately stenotic du e to atherosclerotic plaque (series 2 image 131). Left: Mild stenosis is present in the V2 segment due to atherosclerotic plaque. 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 Post-processed coronal, sagittal and 3D- reformatted images were also obtained. Findings: [place]: Anterior circulation: Vascular calcifica tion seen bilateral cavernous segments of internal carotid arteries without hemodynamically significant stenosis. The also vascular calcification is certainly internal carotid artery. The bilateral anterior cerebral (LIIA) and middle cerebral (MCA) arteries are patent. The anterior communicating artery (ACOM) is seen without aneurysm. There is fenestration left A1 segment, variant of normal. Posterior circulation in the head: The i ntradural portions (V4 segment) of the vertebral arteries are patent. The basilar artery is normal in caliber. The left posterior communicating artery PCOM is seen and patent. The right posterior communicating artery (PCOM) is not seen, normal variant There is no dural venous sinus thrombosi s. Aorta and great vessels: There is a thre e-vessel left-sided aortic arch. The origins of the great vessels are normal. Carotid arteries in the neck: Calcified atherosclerotic plaque is pres ent in right and left carotid bulbs extending into proximal internal carotid arteries without hemodynamically significant stenosis Right: Mild atherosclerotic plaque is no william in the common carotid artery without hemodynamically series stenosis. Left: Mild atherosclerotic plaque is not ed in the common carotid artery without hemodynamically series stenosis. Vertebral arteries in the neck: The rig ht vertebral artery is dominant.. Right: V2 segment moderately stenotic du e to atherosclerotic plaque (series 2 image 131). Left: Mild stenosis is present in the V2 segment due to atherosclerotic plaque. IMPRESSION: Moderate stenosis in right V2 segment ve rtebral artery. Mild stenosis of right and left common c arotid arteries and bulbs as well as proximal internal carotid arteries. No vessel occlusion or significant steno sis in the vessels of the [place]. Criteria for stenosis: Distal internal c arotid artery diameter was used as the denominator for carotid stenosis measurement. CAROTID STENOSIS REFERENCE: Mild = <50% stenosis. Moderate = 50-69% stenosis. Severe = 70-89% stenosis. Critical = 90-99% stenosis. Occluded = 100% stenosis. Performing Organization Address City/State/ZIP Code Phon e Number [id number] MRI Brain with and without Contrast (03/16/2021 3:52 PM SPEECH THERAPIST TECHNICIAN) Specimen Impressions [id number] - 03/16/2021 5:50 PM SPEECH THERAPIST TECHNICIAN No acute infarct. No evidence of intracranial metastasis. Diffuse confluent and scattered symmetri c T2/FLAIR hyperintensities in the supratentorial white matter bilaterally may represent advanced microangiopathic changes in a patient of this age. Narrative [id number] - 03/16/2021 5:50 PM SPEECH THERAPIST TECHNICIAN FULL RESULT: Examination: MRI BRAIN W WO CONTRAST on 03/16/2021 3:52 PM Clinical History: : Malignant neoplasm o f endometrium Indication: Transient ischemic attack Comparison: CT head, 03/16/2021 Technique: Multisequence MRI brain was p erformed with and without intravenous contrast. Findings: There are no enhancing brain parenchymal lesions. There is no intracranial leptomeningeal enhancement. There are no dural based enhancing masses. There is no hydrocephalus. There are no subdural collect ions. There is no acute infarct. There i s note of diffuse confluent and scattered T2/FLAIR intensities within this supratentorial white matter bilaterally which is nonspecific and may represent advanced microangiopathic changes. There are no suspicious enhancing calvarial or skull base lesions. The paranasal sinuses are clear. Procedure Note Yunier Jackson MD - 03/16/2021 FULL RESULT: Examination: MRI BRAIN W WO CONTRAST on 03/16/2021 3:52 PM Clinical History: : Malignant neoplasm o f endometrium Indication: Transient ischemic attack Comparison: CT head, 03/16/2021 Technique: Multisequence MRI brain was p erformed with and without intravenous contrast. Findings: There are no enhancing brain parenchymal lesions. There is no intracranial leptomeningeal enhancement. There are no dural based enhancing masses. There is no hydrocephalus. There are no subdural collections. There is no acute infarct. There is note of diffuse confluent and scattered T2/FLAIR intensities within this supratentorial white matter bilaterally which is nonspecific and may represent advanced microangiopathic changes. There are no suspicious enhancing calvarial or sku ll base lesions. The paranasal sinuses are clear. IMPRESSION: No acute infarct. No evidence of intracranial metastasis. Diffuse confluent and scattered symmetri c T2/FLAIR hyperintensities in the supratentorial white matter bilaterally may represent advanced microangiopathic changes in a patient of this age. Performing Organization Address City/State/ZIP Code Phon e Number [id number] CT Head without Contrast (03/16/2021 12:17 PM SPEECH THERAPIST TECHNICIAN) Specimen Impressions [id number] - 03/16/2021 12:46 PM SPEECH THERAPIST TECHNICIAN No intracranial hemorrhage. No large vascular territory infarction. However, a small area of acute ischemic change cannot be excluded due to extensive nonspecific cerebral white matter hypoattenuations bilaterally. A MRI brain is recommended for further evaluation. Narrative [id number] - 03/16/2021 12:46 PM SPEECH THERAPIST TECHNICIAN FULL RESULT: Examination: CT HEAD WO CONTRAST on 03/16 12:17 PM Clinical History: Malignant neoplasm of endometrium Indication: Confusion, Altered Mental St atus, transient ischemic attack Comparison: None Technique: CT head without intravenous c ontrast was performed. Findings: There is no intracranial hemorrhage. The re is no mass effect or midline shift. There is no hydrocephalus. There is no large vascular territory infarction. There is note of extensive confluent and patchy hypoattenuations within the cerebral de ep white matter bilaterally which are nonspecific. There are no destructive calvarial or skull base lesions. The paranasal sinuses are clear. Procedure Note Yunier Jackson MD - 03/16/2021 FULL RESULT: Examination: CT HEAD WO CONTRAST on 03/16 12:17 PM Clinical History: Malignant neoplasm of endometrium Indication: Confusion, Altered Mental St atus, transient ischemic attack Comparison: None Technique: CT head without intravenous c ontrast was performed. Findings: There is no intracranial hemorrhage. The re is no mass effect or midline shift. There is no hydrocephalus. There is no large vascular territory infarction. There is note of extensive confluent and patchy hypoattenuations within the cerebral chelsea p white matter bilaterally which are nonspecific. There are no destructive calvarial or skull base lesions. The paranasal sinuses are clear. IMPRESSION: No intracranial hemorrhage. No large vascular territory infarction. However, a small area of acute ischemic change cannot be excluded due to extensive nonspecific cerebral white matter hypoattenuations bilaterally. A MRI brain is recommended for further evaluation. Performing Organization Address [facility]/ZIP Code Phon e Number [id number] (ABNORMAL) POC VBG+Lac (03/16/2021 11:37 AM SPEECH THERAPIST TECHNICIAN) POC VB pH 7.36 7.31 - 7.41 POC TELCOR POC VB pCO2 39 (L) 41 - 51 mmHg POC TELCOR POC VB pO2 34 mmHg POC TELCOR POC VB TCO2 23 (L) 24 - 29 mEq/L POC TELCOR POC VB Bicarb 22 (L) 23 - 28 POC TELCOR mmol/L POC VB Base Ex -3 (L) -2 - 3 mmol/L POC TELCOR POC VB O2 Sat 64 % POC TELCOR POC VB LAC 0.7 (L) 0.9 - 1.7 POC TELCOR Comment: mmol/L Method description: The i-ST AT is an analyzer used for in vitro quantification of various analytes in whole blood. The device uses a single disposable cartridge which contains microfabricated sensors, a calibration solution, fluidics system, and a waste chamber. Each test cartridge contains chemically sensitive biosensors on a silicon chip that are configured to perform specific tests. The microfabricated sensors measure analyte concentration by an electrochemical assay. POC Sample Type Venous POC TELCOR POC Clean Dev Yes POC TELCOR [facility] POC T[facility], [address] [place] [id number]; Pilates Coordinator: Ronda Gil MD Specimen Blood Performing Organization Address City/[facility]/ZIP Code Phon e Number POC TELCOR X-ray Chest 1 View (03/16/2021 11:25 AM SPEECH THERAPIST TECHNICIAN) Specimen Impressions [id number] - 03/16/2021 11:44 AM SPEECH THERAPIST TECHNICIAN No evidence of parenchymal consolidation Narrative [id number] - 03/16/2021 11:44 AM SPEECH THERAPIST TECHNICIAN FULL RESULT: Examination: XR CHEST 1 VW, 03/16/2021 11 :25 AM Clinical History: A 71-year-old female p atient with uterine neoplasm Indication: Altered Mental Status Comparison: CT 02/12/2021 Technique: Anteroposterior radiograph of the chest. Findings: No parenchymal opacities demonstrated. S ubtle nonspecific right perihilar bronchial cuffing is observed. There is no pleural effusion or pneumothorax. There is no mediastinal or hilar adenopathy. Cardia c silhouette is normal. A right-sided ce ntral line is observed with a catheter distally overlaying the mid/inferior SVC Procedure Note Gildardo Ford MD - 03/16/2021 FULL RESULT: Examination: XR CHEST 1 VW, 03/16/2021 11 :25 AM Clinical History: A 71-year-old female p atient with uterine neoplasm Indication: Altered Mental Status Comparison: CT 02/12/2021 Technique: Anteroposterior radiograph of the chest. Findings: No parenchymal opacities demonstrated. S ubtle nonspecific right perihilar bronchial cuffing is observed. There is no pleural effusion or pneumothorax. There is no mediastinal or hilar adenopathy. Cardiac silhouette is normal. A right-sided cent ral line is observed with a catheter distally overlaying the mid/inferior SVC IMPRESSION: No evidence of parenchymal consolidation Performing Organization Address City/State/ZIP Code Phon e Number [id number] (ABNORMAL) aPTT (03/16/2021 11:25 AM SPEECH THERAPIST TECHNICIAN) Pathologist Sig nature aPTT 69.3 (H)Comment: 24.7 - 36.8 [facility] Rechecked and second(s) CANCER CENTER Verified Specimen Blood Performing Organization Address City/[facility] Phon e Number [facility] CANCER Unless otherwise noted, [place] [address] [place] all lab tests performed by: Division of Pathology and Laboratory Medicine Andrez5 Joseph Coronado (ABNORMAL) Prothrombin Time with INR (03/16/2021 11:25 AM SPEECH THERAPIST TECHNICIAN) Pathologist Sig nature PT 14.5 (H)Comment: 11.5 - 13.9 [facility] Rechecked and second(s) CANCER CENTER Verified INR 1.22 (H)Comment: 0.90 - 1.10 [facility] Rechecked and CANCER CENTER Verified Specimen Blood Performing Organization Address City/[facility] Phon e Number [facility] CANCER Unless otherwise noted, [address] all lab tests performed by: Division of Pathology and Laboratory Medicine [address] [place] [address] LDH (03/16/2021 11:25 AM SPEECH THERAPIST TECHNICIAN) [facility] LDH 162Comment: Results 135 - 214 U/L [facility] greater than 1651 U/L CANCER CENTER may not be reliable due to matrix effect with extended dilution as it exceeds the drapery worker s recommended limit. Caution should be exercised when interpreting such values and done in conjunction with clinical context. Specimen Blood Performing Organization Address [facility] Phon e Number [facility] Unless otherwise noted, [address] all lab tests performed by: Division of Pathology and Laboratory Medicine [address] [place] [address] Ammonia Level (03/16/2021 11:25 AM SPEECH THERAPIST TECHNICIAN) [facility] Ammonia <13 11 - 51 mcmol/L [facility] CANCER [facility] TER Specimen Blood Performing Organization Address [facility] Phon e Number [facility] CANCER Unless otherwise noted, [address] all lab tests performed by: Division of Pathology and Laboratory Medicine [address] [place] [address] (ABNORMAL) POC Glucose Screen (03/16/2021 11:09 AM SPEECH THERAPIST TECHNICIAN) [facility] POC Glucose 105 (H) 70 - 99 mg/dL POC TELCOR Comment: Capillary blood samples, e.g . obtained by fingerstick, may have inaccurate results in patients with decreased peripheral blood flow. Method description: All resu lts are measured using Electrochemistry test methodology. The glucose in the sample mixes with the reagents on the test strip. The reaction produces an electric current. The amount of current produced is proportional to the glucose concentration in the blood. PO Sample Type Capillary POC TELCOR Performing Lab [facility] Main Head WatersComment: POC TELCOR [facility], [address] [place] [address], [place] [address]; Pilates Coordinator: Ronda Gil MD Specimen Blood Performing Organization Address [facility] Phon e Number POC TELCOR EKG, 12-Lead (Portable) (03/16/2021) Specimen Narrative This result has an attachment that is no t available. Performing Organization Address [facility] Phon e Number [facility]EC[facility] (02/16/2021 12:27 PM SPEECH THERAPIST TECHNICIAN) Specimen Impressions [facility] - 02/16/2021 7:56 PM SPEECH THERAPIST TECHNICIAN Tumor metrics have been completed. I personally reviewed these images and agree with the tumor metrics. Narrative [facility] - 02/16/2021 7:56 PM SPEECH THERAPIST TECHNICIAN FULL RESULT: Examination: [facility] on 02/16/2021 19:56 PM Indication:Malignant neoplasm of endomet rium Findings: Tumor metrics have been comple william. Procedure Note Krys Ribeiro MD - 02/16/2021 FULL RESULT: Examination: [facility] on 02/16/2021 19:56 PM Indication:Malignant neoplasm of endomet rium Findings: Tumor metrics have been comple william. IMPRESSION: Tumor metrics have been completed. I per sonally reviewed these images and agree with the tumor metrics. Performing Organization Address [facility] Phon e Number [facility] (02/16/2021 10:39 AM SPEECH THERAPIST TECHNICIAN) Beta HCG, 1.9 <=4.9 mIU/mL [facility] Comment: [facility] Reference Values: Negative: <5 mIU/mL Indeterminate: 5-25 mIU/mL Positive: >25 mIU/mL Values between 5 and 25 mIU/ mL are indeterminate for . Consider confirming with repeat test in 72 hours. Values in should double every 3 days for the first 6 weeks. Specimen Blood Performing Organization Address [facility] Phon e Number [facility] DIAGNOSTIC Unless otherwise noted, [place] [address] [place] all lab tests performed by: Division of Pathology and Laboratory Medicine [address] [place] [address] Echocardiogram 2D Complete (02/13/2021 2:25 PM SPEECH THERAPIST TECHNICIAN) Specimen Narrative [facility] - 02/13/2021 6:52 PM SPEECH THERAPIST TECHNICIAN Echocardiographic Report Interpretation Summary A two-dimensional transthoracic echocard iogram with M-mode and Doppler was performed. The study was technically adequate. There is no comparison study available. Normal left ventricular size and systoli c function. LV ejection fraction calculated using th e bi-plane method of disks is 65-70%. The right ventricle is normal in size an d function. Unable to estimate RVSP due to lack of T R visualization. There is no pericardial effusion. Left Ventricle: Normal left ventricular size and systoli c function. LV ejection fraction calculated using the bi-plane method of disks is 65-70%. I WMSI = 1.00 % Normal = 1 00 Segments Size X - Cannot 2 - 1-2 small Interpret 1 - Normal Hypokine tic 3 - Akinetic 4 - Dyskinetic3- 5 moderate 5 - Aneurysmal 6-14 large 15-16 diffuse Cardiac Mechanics/Speckle Tracking Imagi ng: Normal global longitudinal peak systolic value. Strain Imaging was performed; GLPS avg = -25%. Diastology: Impaired LV relaxation pattern as expect ed for age. Right Ventricle: The right ventricle is normal in size an d function. Atria: Atria are normal in size. Mitral Valve: The mitral valve is normal. Tricuspid Valve: The tricuspid valve is not well visualiz ed, but is grossly normal. Unable to estimate RVSP due to lack of TR visualization. Aortic Valve: The aortic valve is trileaflet. The aort ic valve opens well. Pulmonic Valve: The pulmonic valve is not well visualize d. Great Vessels: The aortic root is normal size. The infe rior vena cava demonstrates normal size and normal respiratory variation. Pericardium/Pleural: There is no pericardial effusion. MMode/2D Measurements IVSd: 1.4 cm LVIDd: 3.7 cm LVIDs: 2.1 cm LVPWd: 0.95 cm FS: 44.9 % LA dimension: 2.9 cm LVOT diam: 1.8 cm EDV(MOD-A4C): 58.2 ml LVOT area: 2.6 cm2 ESV(MOD-A4C): 16.9 ml EF(MOD-A4C): 70.9 % EDV(MOD-A2C): 57.8 ml ESV(MOD-A2C): 18.8 ml EDV(MOD-bp): 58.1 ml EF(MOD-A2C): 67.5 % ESV(MOD-bp): 17.9 ml EF(MOD-bp): 69.1 % LAV(MOD-A2C): 33.5 ml EDV (MOD-bp) Index: 36.1 ml/m2 LAV(MOD-A4C): 35.3 ml LAV(MOD-bp): 37.2 ml LAV(MOD-bp) Indexed: 23.1 ml/m2 RWT: 0.51 cm ESV (MOD-bp) Index: 11.1 ml/m2 TAPSE (>1.6): 3.1 cm Doppler Measurements MV E max tito: 72.6 cm/sec MV V2 max: 133.3 cm/sec MV A max tito: 109.5 cm/sec MV max P.1 mmHg MV E/A: 0.66 MV V2 mean: 88.2 cm/sec MV mean P.3 mmHg MV V2 VTI: 26.1 cm MVA(VTI): 2.9 cm2 Ao V2 max: 185.1 cm/sec LV V1 max P.2 mmHg Ao max P.7 mmHg LV V1 mean P.4 mmHg Ao V2 mean: 114.0 cm/sec LV V1 max: 143.2 cm/sec Ao mean P.9 mmHg LV V1 mean: 98.8 cm/sec Ao V2 VTI: 32.5 cm LV V1 VTI: 29.3 cm CRYSTAL(I,D): 2.3 cm2 CRYSTAL(V,D): 2.0 cm2 SV(LVOT): 75.3 ml PA V2 max: 104.8 cm/sec PA max P.4 mmHg PA V2 mean: 85.7 cm/sec PA mean P.1 mmHg PA V2 VTI: 24.4 cm Med Peak E' Tito: 6.1 cm/sec Lat Peak E' Tito: 8.8 cm/sec CRYSTAL Index (I,D): 1.4 CRYSTAL Index (V,D): 1.2 Dimensionless Index: 0.77 E/e' (avg): 9.7 E/e' (lat): 8.2 E/e' (sept): 12.0 Procedure Note Rhett Ruvalcaba MD - 02/13/2021 Echocardiographic Report Interpretation Summary A two-dimensional transthoracic echocard iogram with M-mode and Doppler was performed. The study was technically adequate. There is no comparison study available. Normal left ventricular size and systoli c function. LV ejection fraction calculated using th e bi-plane method of disks is 65-70%. The right ventricle is normal in size an d function. Unable to estimate RVSP due to lack of T R visualization. There is no pericardial effusion. Left Ventricle: Normal left ventricular size and systoli c function. LV ejection fraction calculated using the bi-plane method of disks is 65-70%. I WMSI = 1.00 % Normal = 100 Segments Size X - Cannot 2 - 1-2 small Interpret 1 - Normal Hypokinetic 3 - Akinetic 4 - Dyskinetic3-5 moderate 5 - Aneurysmal 6-14 large 15-16 diffuse Cardiac Mechanics/Speckle Tracking Imagi ng: Normal global longitudinal peak systolic value. Strain Imaging was performed; GLPS avg = -25%. Diastology: Impaired LV relaxation pattern as expect ed for age. Right Ventricle: The right ventricle is normal in size an d function. Atria: Atria are normal in size. Mitral Valve: The mitral valve is normal. Tricuspid Valve: The tricuspid valve is not well visualiz ed, but is grossly normal. Unable to estimate RVSP due to lack of TR visualization. Aortic Valve: The aortic valve is trileaflet. The aort ic valve opens well. Pulmonic Valve: The pulmonic valve is not well visualize d. Great Vessels: The aortic root is normal size. The infe rior vena cava demonstrates normal size and normal respiratory variation. Pericardium/Pleural: There is no pericardial effusion. MMode/2D Measurements IVSd: 1.4 cm LVIDd: 3.7 cm LVIDs: 2.1 cm LVPWd: 0.95 cm FS: 44.9 % LA dimensio n: 2.9 cm LVOT diam: 1.8 cm EDV(MOD-A4C ): 58.2 ml LVOT area: 2.6 cm2 ESV(MOD-A4C ): 16.9 ml EF(MOD-A4C) : 70.9 % EDV(MOD-A2C): 57.8 ml ESV(MOD-A2C): 18.8 ml EDV(MOD-bp) : 58.1 ml EF(MOD-A2C): 67.5 % ESV(MOD-bp) : 17.9 ml EF(MOD-bp): 69.1 % LAV(MOD-A2C): 33.5 ml EDV (MOD-bp ) Index: 36.1 ml/m2 LAV(MOD-A4C): 35.3 ml LAV(MOD-bp): 37.2 ml LAV(MOD-bp) Indexed: 23.1 ml/m2 RWT: 0.51 c m ESV (MOD-bp) Index: 11.1 ml/m2 TAPSE (>1.6): 3.1 cm Doppler Measurements MV E max tito: 72.6 cm/sec MV V2 max: 133. 3 cm/sec MV A max tito: 109.5 cm/sec MV max P.1 mmHg MV E/A: 0.66 MV V2 mean: 88. 2 cm/sec MV mean P.3 mmHg MV V2 VTI: 26.1 cm MVA(VTI): 2.9 c m2 Ao V2 max: 185.1 cm/sec LV V1 max P .2 mmHg Ao max P.7 mmHg LV V1 mean P.4 mmHg Ao V2 mean: 114.0 cm/sec LV V1 max: 143. 2 cm/sec Ao mean P.9 mmHg LV V1 mean: 98. 8 cm/sec Ao V2 VTI: 32.5 cm LV V1 VTI: 29.3 cm CRYSTAL(I,D): 2.3 cm2 CRYSTAL(V,D): 2.0 cm2 SV(LVOT): 75.3 ml PA V2 max: 104. 8 cm/sec PA max P.4 mmHg PA V2 mean: 85. 7 cm/sec PA mean P.1 mmHg PA V2 VTI: 24.4 cm Med Peak E' Tito: 6.1 cm/sec Lat Peak E' Tito : 8.8 cm/sec CRYSTAL Index (I,D): 1.4 CRYSTAL Index (V,D) : 1.2 Dimensionless Index: 0.77 E/e' (avg): 9.7 E/e' (lat): 8.2 E/e' (sept): 12 .0 Performing Organization Address City/State/ZIP Code Phon e Number [facility]domen Pelvis with and without Contrast (02/12/2021 12:55 PM SPEECH THERAPIST TECHNICIAN) Specimen Impressions [id number] - 02/12/2021 8:00 PM SPEECH THERAPIST TECHNICIAN 1. Large heterogenous mass in the pelv is involving the vaginal cuff, sigmoid colon and urinary bladder has increased compared to 10/27/2020. 2. Interval decrease in left para-aort ic adenopathy, compared to 10/27/2020. 3. Findings in keeping with prior frac tures in the pelvis including in the pubic ramus and bilateral iliac bones. Associated sclerotic and lucent changes are again noted in the pelvic bones, grossly u nchanged compared to prior study. While these findings may be related to prior radiation and/ or trauma, correlation with PET/CT and pelvic MRI may be helpful to exclude underlying pathology, as clinically warranted. 4. Small subcentimeter pulmonary nodul ar opacities are nonspecific. While these may be inflammatory or infectious, recommend continued close monitoring with short-term follow-up CT chest to exclude less likely metastatic etiology. Narrative [id number] - 02/12/2021 8:00 PM SPEECH THERAPIST TECHNICIAN FULL RESULT: Examination: CT CHEST ABDOMEN PELVIS W W O CONTRAST, 02/12/2021 12:55 PM Clinical History: Malignant neoplasm of endometrium Indication: [id number] Comparison: CT dated 10/27/2020 Technique: CT of the abdomen was perform ed without intravenous contrast followed by CT of the chest, abdomen, and pelvis with intravenous contrast. Findings: CT chest Several small subcentimeter groundglass and solid pulmonary nodular opacities are seen [for example series 5, image 24, 25, 30, 79]. These also seen on the previous CT. These are indeterminate. While it is possible these may be inflammatory/i nfectious, metastasis cannot be completely excluded. Recommend close monitoring with short-term follow-up. No enlarged thoracic nodes. Few small no nspecific subcentimeter and borderline prominent nodes prevascular region, stable since prior study [image 36], likely reactive and can be observed. No pleural effusions. Coronary artery calcifications seen. CT abdomen and pelvis No suspicious lesions in the liver, sple en and adrenals. Small subcentimeter hypodensity seen in the tail of pancreas, too small to characterize and can be monitored [image 169]. Pancreatic duct is not dilated. No hydronephrosis. Bilateral renal cysts seen. No collections in the pelvis. No dilated bowel loops. Stoma noted in the left lower abdomen. Large heterogenous tumor infiltration is noted within the sigmoid colon, vaginal cuff and inseparable from the urinary bladder. Although evaluation is somewhat limited due to the prior noncontrast CT, t his is increased compared to the prior s tudy. One component of the heterogenous tumor involving the vaginal cuff, sigmoid colon and urinary bladder measures 7.2 x 5.3 cm [image 250]. Previously noted left para-aortic node i s decreased in size and measures 11 x 10 mm, previously 14 x 15 mm [image 201]. Findings in keeping with prior fractures in the pelvis including in the pubic ramus and bilateral iliac bones. Associated sclerotic and lucent changes are again noted in the pelvic bones, grossly unchan ged compared to prior study. While these findings may be related to prior radiation and/ or trauma, correlation with PET/CT and pelvic MRI may be helpful to exclude underlying pathology, as clinically warranted. Procedure Note Lucila Marinelli MD - 021 FULL RESULT: Examination: CT CHEST ABDOMEN PELVIS W W O CONTRAST, 02/12/2021 12:55 PM Clinical History: Malignant neoplasm of endometrium Indication: Comparison: CT dated 10/27/2020 Technique: CT of the abdomen was perform ed without intravenous contrast followed by CT of the chest, abdomen, and pelvis with intravenous contrast. Findings: CT chest Several small subcentimeter groundglass and solid pulmonary nodular opacities are seen [for example series 5, image 24, 25, 30, 79]. These also seen on the previous CT. These are indeterminate. While it is possible these may be inflammatory/infec tious, metastasis cannot be completely excluded. Recommend close monitoring with short-term follow-up. No enlarged thoracic nodes. Few small no nspecific subcentimeter and borderline prominent nodes prevascular region, stable since prior study [image 36], likely reactive and can be observed. No pleural effusions. Coronary artery calcifications seen. CT abdomen and pelvis No suspicious lesions in the liver, sple en and adrenals. Small subcentimeter hypodensity seen in the tail of pancreas, too small to characterize and can be monitored [image 169]. Pancreatic duct is not dilated. No hydronephrosis. Bilateral renal cysts seen. No collections in the pelvis. No dilated bowel loops. Stoma noted in the left lower abdomen. Large heterogenous tumor infiltration is noted within the sigmoid colon, vaginal cuff and inseparable from the urinary bladder. Although evaluation is somewhat limited due to the prior noncontrast CT, this is increased compared to the prior study. One compone nt of the heterogenous tumor involving the vaginal cuff, sigmoid colon and urinary bladder measures 7.2 x 5.3 cm [image 250]. Previously noted left para-aortic node i s decreased in size and measures 11 x 10 mm, previously 14 x 15 mm [image 201]. Findings in keeping with prior fractures in the pelvis including in the pubic ramus and bilateral iliac bones. Associated sclerotic and lucent changes are again noted in the pelvic bones, grossly unchanged compared to prior study. While these findings may be related to prior radiation and/ or trauma, correlation with PET/CT and pelvic MRI may be helpful to exclude underlying pathology, as clinically warranted. IMPRESSION: 1. Large heterogenous mass in the pelvi s involving the vaginal cuff, sigmoid colon and urinary bladder has increased compared to 10/27/2020. 2. Interval decrease in left para-aorti c adenopathy, compared to 10/27/2020. 3. Findings in keeping with prior fract ures in the pelvis including in the pubic ramus and bilateral iliac bones. Associated sclerotic and lucent changes are again noted in the pelvic bones, grossly unchanged compared to prior study. While these findings may be related to prior radiation and/ or trauma, correlation with PET/CT and pelvic MRI may be helpful to exclude underlying pathology, as clinically warranted. 4. Small subcentimeter pulmonary nodula r opacities are nonspecific. While these may be inflammatory or infectious, recommend continued close monitoring with short-term follow-up CT chest to exclude less likely metastatic etiology. Performing Organization Address City/State/ZIP Code [facility] e Number [id number] OCT, Retina - OU - Both Eyes (02/12/2021 10:43 AM SPEECH THERAPIST TECHNICIAN) Specimen Narrative Serena Ley MD - 02/20/2021 10:32 AM SPEECH THERAPIST TECHNICIAN Right Eye Quality was good. This is the baseline e xam. Findings include normal observations. Left Eye Quality was good. This is the baseline e xam. Findings include normal observations. Fundus Photos - OU - Both Eyes (02/12/2021 10:43 AM SPEECH THERAPIST TECHNICIAN) Specimen Narrative Serena Ley MD - 02/20/2021 10:32 AM SPEECH THERAPIST TECHNICIAN Right Eye Basline Exam. Left Eye Basline Exam. EKG, 12-Lead (Scheduled) (02/12/2021) Specimen Narrative This result has an attachment that is no t available. Performing Organization Address City/State/ZIP Code Phon e Number [facility] PETCT Subsequent Treatment Strategy (02/04/2021 10:44 AM SPEECH THERAPIST TECHNICIAN) Specimen Impressions [id number] - 02/10/2021 3:49 PM SPEECH THERAPIST TECHNICIAN 1. Suspected persistent active tumor neville ng the vaginal cuff, extending to and abutting the bladder 2. 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 consultation. Indication: Restaging/subsequent treatme nt strategy Comparison: No prior PET/CT scans are av ailable for comparison at time dictation Technique: F-18 fluorodeoxyglucose (FDG) 10.3 mCi was administered intravenously via right antecubital fossa vein IV. To allow for distribution and uptake of radiotracer, the patient was asked to rest quietly for approximately 59 minutes. PET/CT imaging was performed from the proximal thighs. Recent glucose level was 162 mg/dL. CT scanning was done for attenuation correction, image registration, a nd diagnosis with scan parameters optimi zed to minimize radiation exposure to the patient. SUV measurements are reported as maximum SUV based on body weight unless otherwise specified. There are technic al differences which may result in incre ased scan to scan variation of semiquantitative measurements. Findings: Head and Neck: No hypermetabolic or susp icious cervical lymphadenopathy. No focal abnormal activity within the brain. Paranasal sinuses are unremarkable. Chest: No hypermetabolic or suspicious p ulmonary parenchymal abnormalities. Subtle activity is associated with small left paratracheal/AP window nodes for example on image 120, most likely reactive. Subtle activity in subcarinal and hilar regions is also likely reactive. Right chest chemotherapy port is noted w ith tip at atrial caval junction. Vascular calcifications including those of the coronary arteries are noted incidentally. Abdomen and Pelvis: No focal abnormal ac tivity in the liver. Gallbladder is visualized. No suspicious activity in adrenal beds. No hydronephrosis or hydroureter. Likely cysts involving bilateral kidneys are noted incidentally. Prior hysterectomy. There is abnormal ac tivity in region of the vaginal cuff extending to and abutting the bladder, with loss of normal fat planes on noncontrast CT images and SUV 12.4 on image 265. Stranding is seen within the pelvis, wit hout suspicious activity, compatible with post therapy change. There is subtle 0.5 cm thickening in the left periaortic region just above the aortic bifurcation on image 228 with SUV 3.9, suspicious for mal site of disease. Curvilinear activity appears to be assoc iated with bowel in the pelvis, poorly evaluated on noncontrast CT images. Colostomy in left lower abdomen is noted incidentally. Musculoskeletal: Displaced fracture of i nferior right pubic ramus is noted, with diffuse low-grade activity in this region compatible with reactive/inflammatory etiology. No focal hypermetabolic or susp icious lytic or blastic osseous lesions. There appears to be loss of normal marrow activity involving lower lumbar spine and pelvis, compatible with prior radiation port. 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 Indication: Restaging/subsequent treatme nt strategy Comparison: No prior PET/CT scans are av ailable for comparison at time dictation Technique: F-18 fluorodeoxyglucose (FDG) 10.3 mCi was administered intravenously via right antecubital fossa vein IV. To allow for distribution and uptake of radiotracer, the patient was asked to rest quietly for approximately 59 minutes. P ET/CT imaging was performed from the proximal thighs. Recent glucose level was 162 mg/dL. CT scanning was done for attenuation correction, image registration, and diagnosis with scan parameters optimized to minimize ra diation exposure to the patient. SUV measurements are reported as maximum SUV based on body weight unless otherwise specified. There are technical differences which may result in increased scan to scan variation of semi quantitative measurements. Findings: Head and Neck: No hypermetabolic or susp icious cervical lymphadenopathy. No focal abnormal activity within the brain. Paranasal sinuses are unremarkable. Chest: No hypermetabolic or suspicious p ulmonary parenchymal abnormalities. Subtle activity is associated with small left paratracheal/AP window nodes for example on image 120, most likely reactive. Subtle activity in subcarinal and hilar regions is also likely reactive. Right chest chemotherapy port is noted w ith tip at atrial caval junction. Vascular calcifications including those of the coronary arteries are noted incidentally. Abdomen and Pelvis: No focal abnormal ac tivity in the liver. Gallbladder is visualized. No suspicious activity in adrenal beds. No hydronephrosis or hydroureter. Likely cysts involving bilateral kidneys are noted incidentally. Prior hysterectomy. There is abnormal ac tivity in region of the vaginal cuff extending to and abutting the bladder, with loss of normal fat planes on noncontrast CT images and SUV 12.4 on image 265. Stranding is seen within the pelvis, wit hout suspicious activity, compatible with post therapy change. There is subtle 0.5 cm thickening in the left periaortic region just above the aortic bifurcation on image 228 with SUV 3.9, suspicious for mal site of disease. Curvilinear activity appears to be assoc iated with bowel in the pelvis, poorly evaluated on noncontrast CT images. Colostomy in left lower abdomen is noted incidentally. Musculoskeletal: Displaced fracture of i nferior right pubic ramus is noted, with diffuse low-grade activity in this region compatible with reactive/inflammatory etiology. No focal hypermetabolic or suspicious lytic or blastic osseous lesions. There appears to be loss of normal marrow activity involving lower lumbar spine and pelvis, compatible with prior radiation port. IMPRESSION: 1. Suspected persistent active tumor neville ng the vaginal cuff, extending to and abutting the bladder 2. Metabolically active left periaortic node is suspicious for metastatic disease Performing Organization Address City/State/ZIP Code Phon e Number [id number] Verify Catheter Tip Placement/Venous Blood Return (02/03/2021 4:10 PM SPEECH THERAPIST TECHNICIAN) Leyda Leonard PA - 02/03/2021 4:1 0 PM SPEECH THERAPIST TECHNICIAN GHADA Fabian 02/03/2021 4:11 PM Central Vascular Access Device Tip Verif ication Performed by: GHADA Fabian Authorized by: GHADA Fabian CVAD Properties Date device placed: Unknown Device placement location: Outside fac ility Catheter Type: Implanted venous port Vein location: Subclavian Laterality: Right Tip Verification Properties Diagnostic image available: Chest xray Written diagnostic report available: Yes Tip location per report: Cavotrial jay ction Tip in good position and cleared for inf usion TMP HIV 1/2 Ag&Ab Path Interp (02/02/2021 4:44 PM SPEECH THERAPIST TECHNICIAN) HIV 1/2 Ag&Ab Negative for HIV-1 antigen a nd HIV-1/HIV-2 antibodies. No laboratory evidence of HIV infection. If acute HIV infection is suspected, consider testing for HIV-1 RNA. [facility] Interp Comment: CENTER RIGOBERTO REYEZ, Dictated by: RIGOBERTO REYEZ, Dictated Date/Time: 02.05.20 6:34 AM SPEECH THERAPIST TECHNICIAN Transcribed Date/Time: 02.04.2021 6:34 AM SPEECH THERAPIST TECHNICIAN Electronically Signed By: RIGOBERTO REYEZ, on 1 04.07.2020 6:34 AM C Specimen Blood Performing Organization Address City/State/ZIP Code Phon e Number [facility] [place] [address] [place] [address] Glucose, Random (02/02/2021 4:44 PM SPEECH THERAPIST TECHNICIAN) Pathologist Sig nature Glucose Random 162 70 - 199 mg/dL [facility] Comment: Effective 10/01/15, the gluco se reference intervals have been updated based on [place] [employer] guidelines (Standards of Medical Care in Diabetes 2016. Diabetes Care 2016; 39: S13-S22) Fasting blood glucose: Normal: 70-99 mg/dL Impaired fasting glucose (in creased risk for diabetes or pre-diabetes): 100-125 mg/dL Diabetes mellitus: >/= 126 mg/dL Random blood glucose: Normal: 70-199 mg/dL Note: Random glucose >100 mg/dL is assoc iated with increased risk for diabetes Testing Performed at [facility] Lab [employer] [facility], [address] [place] [address], [address], [place] [address] Specimen Blood Performing Organization Address City/[facility]/ZIP Code Phon e Number [facility] [address] [place] [address] [address] HIV-1/2 Antigen and Antibodies, Fourth Generation (02/02/2021 4:44 PM SPEECH THERAPIST TECHNICIAN) Pathologist [facility] HIV 1/2 Ag & Ab, Non Reactive Non Reactive [facility] 4th Gen Comment: CENTER Performed at: [facility] [address] [place] [id number] Specimen Blood Performing Organization Address [facility] Phon e Number [facility] [address] [place] [address] TMP HCV Ab Path Interp (02/02/2021 4:44 PM SPEECH THERAPIST TECHNICIAN) Pathologist [facility] HCV Ab Path There is NO serologic evidence of Hepatitis C vi shahzad antibody. [facility] Interp Comment: CENTER RIGOBERTO REYEZ, Dictated by: RIGOBERTO REYEZ, Dictated Date/Time: 02.05.20 6:33 AM SPEECH THERAPIST TECHNICIAN Transcribed Date/Time: 02.04.2021 6:33 AM SPEECH THERAPIST TECHNICIAN Electronically Signed By: RIGOBERTO REYEZ, on 1 04.07.2020 6:33 AM C Specimen Blood Performing Organization Address [facility] Phon e Number [facility] [address] [place] [id number] Hepatitis C Virus Ab (02/02/2021 4:44 PM SPEECH THERAPIST TECHNICIAN) Pathologist [facility] HCVAb. Non Reactive Non Reactive [facility] Comment: CENTER Antibody detection in the im munocompromised and immunosuppressed population may be delayed or absent entirely. Therefore serial testing, correlation with other clinical findings, and supplemental testin g (if available) should be taken into consideration when interpreting the results. Performed at: [facility] [address] [place] [id number] Specimen Blood Performing Organization Address [facility] Phon e Number [facility] [address] [address] Hepatitis B Surface Ag w/Confirm (02/02/2021 4:44 PM SPEECH THERAPIST TECHNICIAN) Hep Bs Ag-[place] Negative Negative [facility] Comment: CANCER CENTER Test Performed by: [facility] [address] [place] [address] Pilates Coordinator: Mo Andrade M.D. Ph.D.; CLIA# [id number] Specimen Blood Performing Organization Address City/[facility]/ZIP Code Phon e Number [facility] CANCER Unless otherwise noted, [address] all lab tests performed by: Division of Pathology and Laboratory Medicine [address] [place] Hepatitis B Surface Ag (02/02/2021 4:44 PM SPEECH THERAPIST TECHNICIAN) Pathologist Sig nature HBsAg Received See NoteComment: [facility] HBsAg was sent to a CANCER CENTER reference lab for testing. Expect results on Hepatitis B Surface Antigen w/ Confirm within 96 hours. Specimen Blood Performing Organization Address [facility] Phon e Number [facility] CANCER Unless otherwise noted, [address] all lab tests performed by: Division of Pathology and Laboratory Medicine [address] [place], [place] [address]vard Confirm ABORh (02/02/2021 4:42 PM SPEECH THERAPIST TECHNICIAN) Pathologist Sig nature ABORh Confirm. A POS [facility] CANCER CENT ER Specimen Blood Performing Organization Address [facility] Phon e Number [facility] CANCER Unless otherwise noted, [address] all lab tests performed by: Division of Pathology and Laboratory Medicine [address] [facility] Chest 2 Views (02/02/2021 1:51 PM SPEECH THERAPIST TECHNICIAN) Specimen Impressions [id number] - 02/02/2021 2:07 PM SPEECH THERAPIST TECHNICIAN No radiographic evidence of acute complications. Focal sclerosis in the left 8th rib. If clinically indicated a dedicated bone imaging study is advised. Narrative [id number] - 02/02/2021 2:07 PM SPEECH THERAPIST TECHNICIAN FULL RESULT: Examination: XR CHEST 2 VW, 02/02/2021 1 :51 PM Clinical History: Malignant neoplasm of endometrium Indication: Baseline Chest X-Ray Comparison: None Technique: Posteroanterior, lateral and dual-energy radiographs of the chest. Findings: Right central catheter with its distal t ip over the atriocaval junction. Biapical pleural-parenchymal scarring. There is no pleural effusion or pneumothorax. There is no mediastinal or hilar adenopathy. Atherosclerosis of the aorta. Cardiac s ilhouette is normal. Focal sclerosis in the left 8th rib. Procedure Note Laurent Ta MD - 02/02/2021 FULL RESULT: Examination: XR CHEST 2 VW, 02/02/2021 1 :51 PM Clinical History: Malignant neoplasm of endometrium Indication: Baseline Chest X-Ray Comparison: None Technique: Posteroanterior, lateral and dual-energy radiographs of the chest. Findings: Right central catheter with its distal t ip over the atriocaval junction. Biapical pleural-parenchymal scarring. There is no pleural effusion or pneumothorax. There is no mediastinal or hilar adenopathy. Atherosclerosis of the aorta. Cardiac silhouette is norm al. Focal sclerosis in the left 8th rib. IMPRESSION: No radiographic evidence of acute compli cations. Focal sclerosis in the left 8th rib. If clinically indicated a dedicated bone imaging study is advised. Performing Organization Address City/State/ZIP Code Phon e Number [id number] OSI CT CHEST ABDOMEN PELVIS (10/27/2020 1:02 PM CDT) Specimen Narrative Systemgenerated, Documentation - 021 1:02 PM CDT Study acquired at another institution. For comparison only. No MD Villarreal originated interpretation requested or a vailable. after 05/08/2020 Insurance Payer Benefit Plan / Subscriber ID Effective Phone Address T ype Group Dates MEDICARE MEDICARE PART [id number] 2012-Pre [phone] [facility] Medicare A AND B sent [id number] [employer] [address] [place] [phone] HUMANA NON HUMANA NON [id number] 2016-Pres [address] CONTRACTED CONTRACTED ent [address] [place] [address] Advance Directives Code Status Date Activated Date Inactivated Comments Full Code 05/04/2021 7:23 PM 05/05/2021 4:08 PM Full Code 03/16/2021 4:47 PM 03/17/2021 12:04 PM Care Teams Cinder Dump Crane Operator Relationship Specialty Start Date End Date Rupinder Ramos PCP - External Obstetrics/Gynecology 12/28/20 MD Naun Referring [address], [facility] [address] [place] [address] Talat Soler MD PCP - General Gynecological Oncology 12/29/20 [facility] [place] [address] Heidi Rubalcava MD PCP - External Follow Hematology and Oncology 02/02/21 [address] [facility] [address]
--- OUTSIDE RECORDS SUMMARY | 2021-05-08 08:36 | XMS REPORT | Continuity of Care Document ---
:[address] [facility] t Address [address] [place] [address] Care Team Providers Name Role Phone [phone] Primary Care Physician Unavailable SYSTEM, NOT IN Attending Clinician Unavailable Jihan GARCIA Attending Clinician Meghan Patel RN Attending Clinician Unavailable Vickie CORADO Attending Clinician Unavailable Joey Hayes MD Attending Clinician Em Betts MD Attending Clinician Em BETTS Attending Clinician Unavailable Johny Attending Clinician [facility] Attending Clinician Tyler BAEZ PhD Attending Clinician JIHAN Attending Clinician Unavailable TYLER Attending Clinician Unavailable Anil Bettencourt APN Attending Clinician Padilla, Aaliyahin Attending Clinician Alba STONE PROCESSING MACHINE OPERATOR Attending Clinician Rosina CORADO Attending Clinician Unavailable Ryder BAEZ Attending Clinician RYDER Attending Clinician Unavailable ALBA Attending Clinician Unavailable Sameer SandsD, H Attending Clinician Unavailable Arabella Attending Clinician Unavailable GABBI Attending Clinician Unavailable Bandar BAEZ Attending Clinician Gabbi BAEZ Attending Clinician Jassi Giraldo RN Attending Clinician Unavailable Shashank CORADO, N Attending Clinician Banner Attending Clinician Zacarias, Anil Attending Clinician Unavailable Adelso GARCIA, C Attending Clinician Ronaldo CORADO, J Attending Clinician Unavailable Abundio MOTTA Attending Clinician Unavailable Matt CORADO Attending Clinician Unavailable Emilee CORADO Attending Clinician Unavailable Theodora BAEZ Attending Clinician THEODORA Attending Clinician Unavailable Ulisses URRUTIA, A Attending Clinician Juan BAEZ, Momo Attending Clinician Mark BAEZ, M Attending Clinician Joey HAYES Admitting Clinician Unavailable GABBI Admitting Clinician Unavailable Payers Payer Name Policy Type Policy Number Effective Date Expiration Date Aura bettencourt MEDICARE PART A AND [id number] 2012 B 00:00:00 HUMA[employer] NON [id number] 2016 CONTRACTED 00:00:00 Problems Condition Condition Condition Status Onset Resolution Last Treating Co mments Source Name Details Category Date Date Treatment Clinician Date Dysuria Dysuria Disease Active 2-28 Anderso 00:00: n 00 Uncontroll Uncontroll Disease Active M D ed pain ed pain 2-28 Anderso 00:00: n 00 Suprapubic Suprapubic Disease Active M D pain pain 2-28 Anderso 00:00: n 00 Abnormal Abnormal Disease Active Overview: findings findings 208 Formattin And erso on on 00:00: g of this n diagnostic diagnostic 00 note imaging of imaging of might be lung lung different from the original. 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 00:00: n of lung of lung 00 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 00:00: n of bone of bone 00 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 00:00: n of of 00 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 Under control Allergies, Adverse Reactions, Alerts This patient has no known allergies or adverse reactions. Social History Social Habit Start Date Stop Date Quantity Comments Source Exposure to Not sure MD Villarreal SARS-CoV-2 (event) Alcohol intake 2021-02-12 2021-02-12 Ex-drinker MD Lionel rfances 00:00:00 00:00:00 (finding) Cigarettes smoked 2021-02-02 2021-02-02 MD Magan morris current (pack per 00:00:00 00:00:00 day) - Reported Cigarette 2021-02-02 2021-02-02 MD Villarreal pack-years 00:00:00 00:00:00 Tobacco use and 2021-02-02 2021-02-02 Smokeless tobacco MD Villarreal exposure 00:00:00 00:00:00 non-user Tobacco Comment 2021-02-02 2021-02-02 vapping currently, Jose Villarreal 00:00:00 00:00:00 no History of tobacco 1975-03-07 2005-05-05 Current smoker MD Villarreal use 00:00:00 00:00:00 [birth year] MD Rizvi on 00:00:00 00:00:00 Smoking Status Start Date Stop Date Source Ex-smoker 2021-02-02 00:00:00 2021-02-02 00:00:00 MD Munroe son Medications Ordered Filled Start Stop Current Ordering Indication Dosage Frequency Signature Comments Components Source Medication Medication Date Date Medication? Clinician (SIG) Name Name HYDROcodone Yes Neoplasm 1{tbl} Take 1 MD -acetaminop - related tablet by Andprakash hen (NORCO) 00:00: pain mouth n 10 mg-325 00 (acute) every 4 mg per (chronic) (four) tablet hours as needed for moderate pain or severe pain. phenazopyri 2021- Yes Dysuria 100mg Take 1 MD dine 05-06- tablet Anderso (Pyridium) 00:00: 05:59 (100 mg) n 100 mg 00 :00 by mouth 3 tablet (three) times a day as needed for dysuria for up to 2 days. ferrous Yes 325mg Take 325 MD sulfate 325 01 mg by Anderso mg (65 mg 14:08: mouth n elemental 41 daily. iron per tablet) tablet levoFLOXaci Yes Uncontrolle 750mg Take 1 MD n 3-01 d pain tablet Anderso (Levaquin) 00:00: (750 mg) n 750 mg 00 by mouth tablet daily. morphine Yes Neoplasm 15mg Take 1 MD (MS CONTIN) 05-05 related tablet (15 Anderso 15 mg ER 00:00: pain mg) by n tablet 00 (acute) mouth (chronic) every 8 (eight) hours. morphine 2021- No Neoplasm 7.5mg Take 0.5 MD (MSIR) 15 -03 09- related tablets And erso mg IR 00:00: 00:00 pain (7.5 mg) n tablet 00 :00 (acute) by mouth (chronic) every 4 (four) hours as needed for pain. sulfamethox 2021- No Uncontrolle 1{tbl} Take 1 MD azole-trime - 03- d pain tablet by Anderso thoprim 00:00: 00:00 mouth n (BACTRIM 00 :00 every 12 DS) 800 (twelve) mg-160 mg hours for per tablet 6 days. amLODIPine 2021- No 5mg Take 5 mg M D (NORVASC) 5 04-13 by mouth. An derso mg tablet 09:28: 00:00 n 48 :00 amLODIPine Yes Exam of 5mg Take 1 MD (NORVASC) 5 04-13 participant tablet (5 Anderso mg tablet 00:00: in clinical mg) by n 00 trial mouth daily. INV-(2021- Yes Malignant 12mg Take 3 MD 776) 04-13-08 neoplasm of tablets Magan rso futibatinib 00:00: 05:59 uterus, not (12 mg) by n (TAS-120) 4 00 :00 otherwise mouth mg tablet specified daily for 21 days. Take with 8 oz. of water on empty stomach (no food 2 hours before and 1 hour after dose). HYDROcodone 2021- No Malignant 1{tbl} Take 1 MD -acetaminop 04-13 neoplasm of tablet by Lionel angel (Wireless Seismic) 00:00: 00:00 endometrium mouth n 7.5 mg-325 00 :00 every 4 mg per (four) tablet hours as needed for moderate pain. ciprofloxac 2021- No 1{tbl} Take 1 M D in HCl 04-08 tablet by Lionel (CIPRO) 500 00:00: 00:00 mouth n mg tablet 00 :00 twice daily. nitrofurant 2021- No Chronic 100mg Take 1 MD oin 04-06 urinary capsule Andsonuo monohyd/m-c 00:00: 05:59 tract (100 mg) n ryst 00 :00 infection by mouth (Macrobid) at bedtime 100 mg for 5 capsule days. HYDROcodone 2021- No Malignant 1{tbl} Take 1 MD -acetaminop 03-10 neoplasm of tablet by Lionel angel (Wireless Seismic) 00:00: 00:00 endometrium mouth n 7.5 mg-325 00 :00 every 4 mg per (four) tablet hours as needed for moderate pain. INV-(2021- No Malignant 16mg Take 4 MD 776) 03-09 neoplasm of tablets Magan rso futibatinib 00:00: 05:59 uterus, not (16 mg) by n (TAS-120) 4 00 :00 otherwise mouth mg tablet specified daily for 21 days. Take with 8 oz. of water on empty stomach (no food 2 hours before and 1 hour after dose). lisinopril 2020-03 No 40mg Take 40 mg MD (PRINIVIL,Z 05-03 by mouth. An derso ESTRIL) 40 12:42: 00:00 n mg tablet 44 :00 nitrofurant 2020-03 No Take by oin 05-03 mouth. Anderso (MACRODANTI 12:42: 00:00 n N) 100 mg 44 :00 capsule docusate 2020-03 No 100mg Take 100 MD sodium 05-03 mg by Lionel (Stool 12:42: 00:00 mouth n Softener) 44 :00 daily as 100 mg needed for tablet constipati on. nitrofurant 2020-03 No Malignant 100mg Take 1 MD oin 05-03- neoplasm of capsule Magan rso monohyd/m-c 00:00: 00:00 endometrium (100 mg) n ryst 00 :00 by mouth (MACROBID) at 100 mg bedtime. capsule INV-(2020-03- No Malignant 16mg Take 4 MD 776) 05-03 neoplasm of tablets Magan rso futibatinib 00:00: 19:43 uterus, not (16 mg) by n (TAS-120) 4 00 :34 otherwise mouth mg tablet specified daily for 7 days. Take with 8 ounce of water on empty stomach (no food 2 hours before and 1 hour after dose). calcium 2020-03 No Hyperphosph 2{tbl} Take 2 MD acetate,jacky 2-20 12- atemia tablets by Anderssanchez sphat bind, 00:00: 05:59 mouth 3 n (PHOSLO) 00 :00 (three) 667 mg times a tablet day with meals for 7 days. sevelamer 2020-03 No Hyperphosph 800mg Take 1 MD carbonate 2-20 12- atemia tablet Ludwig so (Renvela) 00:00: 00:00 (800 mg) n 800 mg 00 :00 by mouth 3 tablet (three) times a day with meals. INV-(2020-03- No Malignant 20mg Take 5 MD 776) 2-13 03-02 neoplasm of tablets Magan rso futibatinib 00:00: 19:07 uterus, not (20 mg) by n (TAS-120) 4 00 :59 otherwise mouth mg tablet specified daily for 21 days. Take with 8 oz. of water on empty stomach (no food 2 hours before and 1 hour after dose). HYDROcodone 2020-03 No Malignant 1{tbl} Take 1 MD -acetaminop 2-03-10 neoplasm of tablet by Anderso hen (NORCO) 00:00: 00:00 endometrium mouth n 7.5 mg-325 00 :00 every 4 mg per (four) tablet hours as needed for moderate pain. fluconazole 2020-03 Candidiasis 150mg Take 1 MD (Diflucan) 04-04 , not tablet Ludwig so 150 mg 00:00: 05:59 otherwise (150 mg) n tablet 00 :00 specified by mouth once for 1 dose. May take an additional tablet after 72 hours if symptoms persist. HYDROcodone 2020-03 MD -acetaminop 0-25 02-06 Anderso hen (NORCO) 00:00: 00:00 n 7.5 mg-325 00 :00 mg per tablet Immunizations Ordered Immunization Filled Immunization Date Status Commen ts Source Name Name Moderna SARS-CoV-2 2020-10-30 Completed MD And erson Vaccination 00:00:00 Moderna SARS-CoV-2 2020-10-03 Completed MD And erson Vaccination 00:00:00 Vital Signs Vital Name Observation Time Observation Value Comments Source Oxygen saturation in 2021-05-05 16:50:00 95 /min randall Villarreal Arterial blood by Pulse oximetry Systolic blood pressure 2021-05-05 16:49:59 109 mm[Hg] MD Villarreal Diastolic blood pressure 2021-05-05 16:49:59 61 mm[Hg] MD Villarreal Heart rate 2021-05-05 16:49:59 88 /min MD Ludwig perez Body temperature 2021-05-05 16:49:59 36.89 Kathy MD Anil nance Respiratory rate 2021-05-05 16:49:59 17 /min MD Anil nance Body height 2021-05-04 20:15:00 160 cm MD Ludwig perez Body weight 2021-05-04 20:15:00 53.3 kg Ludwig perez BMI 2021-05-04 20:15:00 20.82 kg/m2 Ludwig chris Procedures Procedure Date / Time Performed Performing Clinician [facility] e BASIC METABOLIC PANEL, 2021-05-05 11:12:00 Kia Becerra MD CALCIUM TOTAL MAGNESIUM LEVEL 2021-05-05 11:12:00 Kia Becerra MD And erson PHOSPHORUS LEVEL 2021-05-05 11:12:00 Kia Becerra MD COMPLETE BLOOD COUNT W/ 2021-05-05 11:12:00 Kia Becerra MD DIFFERENTIAL GLUCOSE LEVEL 2021-05-05 11:12:00 Kia Becerra MD And erson BLOOD UREA NITROGEN 2021-05-05 11:12:00 Kia Becerra MD ELECTROLYTE PANEL 2021-05-05 11:12:00 Kia Becerra MDrsbrian SERUM CREATININE 2021-05-05 11:12:00 Kia Becerra MD .GLOMERULAR FILTRATION RATE 2021-05-05 11:12:00 Kia Becerra MD CALCIUM LEVEL TOTAL 2021-05-05 11:12:00 Kia Becerra MD Results CBC 2021-05-05 11:12:00 Kia Becerra MD And erson MANUAL DIFFERENTIAL 2021-05-05 11:12:[address] ABDOMEN PELVIS W CONTRAST 2021-05-05 04:17:15 Kia Becerra MD COVID-19 (SARS-COV-2) 2021-05-04 18:27:00 Kia Hayes MD ASYMPTOMATIC-LT URINE CULTURE 2021-05-04 16:42:00 Kia aHyes MD COMPLETE BLOOD COUNT W/ 2021-05-04 14:47:00 Alycia Bobo MD DIFFERENTIAL COMPREHENSIVE METABOLIC PANEL 2021-05-04 14:47:00 Alycia Bobo MD MAGNESIUM LEVEL 2021-05-04 14:47:00 Alycia Bobo MD PHOSPHORUS LEVEL 2021-05-04 14:47:00 Alycia Bobo MD URINALYSIS WITH MICROSCOPIC 2021-05-04 14:47:00 Alycia Bobo MD IF INDICATED Results CBC 2021-05-04 14:47:00 Alycia Bobo MD MANUAL DIFFERENTIAL 2021-05-04 14:47:00 Alycia Bobo MD GLUCOSE LEVEL 2021-05-04 14:47:00 Alycia Bobo MD BLOOD UREA NITROGEN 2021-05-04 14:47:00 Alycia Bobo MD son ELECTROLYTE PANEL 2021-05-04 14:47:00 Alycia Bobo MD SERUM CREATININE 2021-05-04 14:47:00 Alycia Bobo MD .GLOMERULAR FILTRATION RATE 2021-05-04 14:47:00 Alycia Bobo MD CALCIUM LEVEL TOTAL 2021-05-04 14:47:00 Alycia Bobo MD son ALBUMIN LEVEL 2021-05-04 14:47:00 Alycia Bobo MD ALKALINE PHOSPHATASE 2021-05-04 14:47:00 Alycia Bobo MD on ALANINE AMINOTRANSFERASE 2021-05-04 14:47:00 Alycia Bobo MD ASPARTATE AMINOTRANSFERASE 2021-05-04 14:47:00 Alycia Bobo TOTAL PROTEIN 2021-05-04 14:47:00 Alycia Bobo MD FRACTIONATED BILIRUBIN 2021-05-04 14:47:00 Alycia Bobo MD URINALYSIS MICROSCOPIC 2021-05-04 14:47:00 Alycia Bobo MD CTRC EKG, 12-LEAD 2021-04-13 00:00:[address] CHEST W CONTRAST 2021-04-12 18:14:57 Alycia Bobo MD son URINE CULTURE 2021-04-12 16:56:00 Afsaneh Lobo MD COMPLETE BLOOD COUNT W/ 2021-04-12 16:56:00 LoboAfsaneh torres MD DIFFERENTIAL COMPREHENSIVE METABOLIC PANEL 2021-04-12 16:56:00 LoboJusta torres MD MAGNESIUM LEVEL 2021-04-12 16:56:00 LoboAfsaneh torres MD PHOSPHORUS LEVEL 2021-04-12 16:56:00 LoboAfsaneh torres MD on THYROID STIMULATING HORMONE 2021-04-12 16:56:00 LoboDeborah torres MD FREE THYROXINE 2021-04-12 16:56:00 LoboAfsaneh torres MD CANCER ANTIGEN 15-3 2021-04-12 16:56:00 Alycia Bobo MD Ludwig son CANCER ANTIGEN 125 2021-04-12 16:56:00 Alycia Bobo MD Dmitri on Results CBC 2021-04-12 16:56:00 LoboAfsaneh torres MD MANUAL DIFFERENTIAL 2021-04-12 16:56:00 LoboAfsaneh torres MD And milan GLUCOSE LEVEL 2021-04-12 16:56:00 LoboAfsaneh torres MD BLOOD UREA NITROGEN 2021-04-12 16:56:00 LoboAfsaneh torres MD And milan ELECTROLYTE PANEL 2021-04-12 16:56:00 LoboAfsaneh torres MD Ludwig [facility] SERUM CREATININE 2021-04-12 16:56:00 LoboAfsaneh torres MD on .GLOMERULAR FILTRATION RATE 2021-04-12 16:56:00 LoboDeborah torres MD CALCIUM LEVEL TOTAL 2021-04-12 16:56:00 LoboAfsaneh torres MD And milan ALBUMIN LEVEL 2021-04-12 16:56:00 LoboAfsaneh torres MD ALKALINE PHOSPHATASE 2021-04-12 16:56:00 LoboAfsaneh torres MD ALANINE AMINOTRANSFERASE 2021-04-12 16:56:00 LoboAfsaneh torres ASPARTATE AMINOTRANSFERASE 2021-04-12 16:56:00 LoboAfsaneh torres MD TOTAL PROTEIN 2021-04-12 16:56:00 LoboAfsaneh MD FRACTIONATED BILIRUBIN 2021-04-12 16:56:00 Afsaneh Lobo MD URINALYSIS WITH REFLEX TO 2021-04-12 16:56:00 Alycia Bobo MD MICROSCOPIC REFERENCE LAB OSI CHEST 2021-04-08 17:52:00 Silvia Browne MD OSI CT ABDOMEN AND PELVIS 2021-04-08 17:52:00 Silvia Browne MD COMPLETE BLOOD COUNT W/ 2021-04-03 14:42:00 Afsaneh Lobo MD DIFFERENTIAL TYPE AND SCREEN 2021-04-03 14:42:00 Afsaneh Lobo MD Anderso n ABORH 2021-04-03 14:42:00 Afsaneh Lobo MD Anderso n ANTIBODY SCREEN 2021-04-03 14:42:00 Afsaneh Lobo MD Anderso yvrose Results CBC 2021-04-03 14:42:00 Afsaneh Lobo MD Andsonuo yvrose MANUAL DIFFERENTIAL 2021-04-03 14:42:00 Afsaneh Lobo MD And erson CLOT EXPIRATION DATE 2021-04-03 14:42:00 Afsaneh Lobo MD derson TMP INTERPRETATION ANTIBODY 2021-04-03 14:42:00 Deborah Lobo MD SCREEN NEGATIVE COMPLETE BLOOD COUNT W/ 2021-03-30 14:55:00 Alycia Bobo MDrson DIFFERENTIAL COMPREHENSIVE METABOLIC PANEL 2021-03-30 14:55:00 Alycia Bobo MD MAGNESIUM LEVEL 2021-03-30 14:55:00 Alycia Bobo MD PHOSPHORUS LEVEL 2021-03-30 14:55:00 Alycia Bobo MD FREE THYROXINE 2021-03-30 14:55:00 Alycia Bobo MD THYROID STIMULATING HORMONE 2021-03-30 14:55:00 Alycia Bobo MD CANCER ANTIGEN 15-3 2021-03-30 14:55:00 Alycia Bobo MD CANCER ANTIGEN 125 2021-03-30 14:55:00 Alycia Bobo MD on Results CBC 2021-03-30 14:55:00 Alycia Bobo MD MANUAL DIFFERENTIAL 2021-03-30 14:55:00 Alycia Bobo MD GLUCOSE LEVEL 2021-03-30 14:55:00 Alycia Bobo MD BLOOD UREA NITROGEN 2021-03-30 14:55:00 Alycia Bobo MD son ELECTROLYTE PANEL 2021-03-30 14:55:00 Alycia Bobo MD SERUM CREATININE 2021-03-30 14:55:00 Alycia Bobo MD .GLOMERULAR FILTRATION RATE 2021-03-30 14:55:00 Alycia Bobo MD CALCIUM LEVEL TOTAL 2021-03-30 14:55:00 Alycia Bobo MD [facility] ALBUMIN LEVEL 2021-03-30 14:55:00 Alycia Bobo MD ALKALINE PHOSPHATASE 2021-03-30 14:55:00 Alycia Bobo MD ALANINE AMINOTRANSFERASE 2021-03-30 14:55:00 Alycia Bobo MD ASPARTATE AMINOTRANSFERASE 2021-03-30 14:55:00 Alycia Bobo TOTAL PROTEIN 2021-03-30 14:55:00 Alycia Bobo MD FRACTIONATED BILIRUBIN 2021-03-30 14:55:00 Alycia Bobo MD URINALYSIS WITH REFLEX TO 2021-03-30 14:55:00 Alycia Bobo MD MICROSCOPIC REFERENCE LAB HEMOGLOBIN 2021-03-17 12:47:00 Kia Rendon MD HEMATOCRIT 2021-03-17 12:47:00 Kia Rendon MD BASIC METABOLIC PANEL, 2021-03-17 10:00:00 Estee Wan MD CALCIUM TOTAL MAGNESIUM LEVEL 2021-03-17 10:00:00 Estee Wan MD PHOSPHORUS LEVEL 2021-03-17 10:00:00 Estee Wan MD COMPLETE BLOOD COUNT W/ 2021-03-17 10:00:00 Estee Wan MDrsbrian DIFFERENTIAL LIPID PANEL 2021-03-17 10:00:00 Estee Wan MD HEMOGLOBIN A1C 2021-03-17 10:00:00 Estee Wan MD GLUCOSE LEVEL 2021-03-17 10:00:00 Estee Wan MD BLOOD UREA NITROGEN 2021-03-17 10:00:00 Estee Wan MD [facility] ELECTROLYTE PANEL 2021-03-17 10:00:00 Estee Wan MD SERUM CREATININE 2021-03-17 10:00:00 Estee Wan MD .GLOMERULAR FILTRATION RATE 2021-03-17 10:00:00 Estee Wan MD CALCIUM LEVEL TOTAL 2021-03-17 10:00:00 Estee Wan MD Ludwig perez Results CBC 2021-03-17 10:00:00 Estee Wan MD MANUAL DIFFERENTIAL 2021-03-17 10:00:00 Estee Wan MD Ludwig perez CTA HEAD NECK W WO CONTRAST 2021-03-17 04:20:17 Naldo Bell MD URINE CULTURE 2021-03-17 03:08:00 Ana Abad MD URINALYSIS WITH MICROSCOPIC 2021-03-17 03:08:00 Ana Abad MD IF INDICATED URINALYSIS MICROSCOPIC 2021-03-17 03:08:00 Ana Abad MD MRI BRAIN W WO CONTRAST 2021-03-16 21:52:[address] HEAD WO CONTRAST 2021-03-16 18:17:46 WatAna matias MD Ludwig perez POC VENOUS BLOOD GAS + 2021-03-16 17:37:00 Neelam Portillo MD LACTATE XR CHEST 1 VW 2021-03-16 17:25:17 Ana Abad MD COVID-19 (SARS-COV-2) 2021-03-16 17:25:00 Ana Abad MD And ersbrian ASYMPTOMATIC-LT AMMONIA LEVEL 2021-03-16 17:25:00 WatAna matias MD COMPLETE BLOOD COUNT W/ 2021-03-16 17:25:00 Ana Abad MD nderson DIFFERENTIAL COMPREHENSIVE METABOLIC PANEL 2021-03-16 17:25:00 Katharine Abad MD MAGNESIUM LEVEL 2021-03-16 17:25:00 WatAna matias MD PHOSPHORUS LEVEL 2021-03-16 17:25:00 Ana Abad MD PROTHROMBIN TIME 2021-03-16 17:25:00 WatAna matias MD APTT 2021-03-16 17:25:00 Ana Abad MD LACTATE DEHYDROGENASE 2021-03-16 17:25:00 Ana Abad MD And erson TYPE AND SCREEN 2021-03-16 17:25:00 Ana Abad MD Results CBC 2021-03-16 17:25:00 Ana Abad MD MANUAL DIFFERENTIAL 2021-03-16 17:25:00 Ana Abad MD Ludwig son GLUCOSE LEVEL 2021-03-16 17:25:00 Ana Abad MD BLOOD UREA NITROGEN 2021-03-16 17:25:00 Ana Abad MD Ludwig [facility] ELECTROLYTE PANEL 2021-03-16 17:25:00 Ana Abad MD SERUM CREATININE 2021-03-16 17:25:00 Ana Abad MD .GLOMERULAR FILTRATION RATE 2021-03-16 17:25:00 Ana Abad MD CALCIUM LEVEL TOTAL 2021-03-16 17:25:00 Ana Abad MD Ludwig [facility] ALBUMIN LEVEL 2021-03-16 17:25:00 Ana Abad MD ALKALINE PHOSPHATASE 2021-03-16 17:25:00 Ana Abad MD rson ALANINE AMINOTRANSFERASE 2021-03-16 17:25:00 Ana Abad MD ASPARTATE AMINOTRANSFERASE 2021-03-16 17:25:00 Ana Abad TOTAL PROTEIN 2021-03-16 17:25:00 Ana Abad MD FRACTIONATED BILIRUBIN 2021-03-16 17:25:00 Ana Abad MD derson ABORH 2021-03-16 17:25:00 Ana Abad MD ANTIBODY SCREEN 2021-03-16 17:25:00 Ana Abad MD TMP INTERPRETATION ANTIBODY 2021-03-16 17:25:00 Ana Abad MD SCREEN NEGATIVE CLOT EXPIRATION DATE 2021-03-16 17:25:00 Ana Abad MD rson POC GLUCOSE SCREEN 2021-03-16 17:09:00 Neelam Portillo MD rson EKG, 12-LEAD (PORTABLE) 2021-03-16 00:00:00 Neelam Portillo MD URINALYSIS WITH MICROSCOPIC 2021-03-09 18:07:00 Alycia Bobo MD IF INDICATED URINALYSIS MICROSCOPIC 2021-03-09 18:07:00 Alycia Bobo MD COMPLETE BLOOD COUNT W/ 2021-03-09 18:00:00 Alycia Bobo MD nderson DIFFERENTIAL COMPREHENSIVE METABOLIC PANEL 2021-03-09 18:00:00 Alycia Bobo MD MAGNESIUM LEVEL 2021-03-09 18:00:00 Alycia Bobo MD PHOSPHORUS LEVEL 2021-03-09 18:00:00 Alycia Bobo MD Results CBC 2021-03-09 18:00:00 Alycia Bobo MD MANUAL DIFFERENTIAL 2021-03-09 18:00:00 Alycia Bobo MD son GLUCOSE LEVEL 2021-03-09 18:00:00 Alycia Bobo MD BLOOD UREA NITROGEN 2021-03-09 18:00:00 Alycia Bobo MD son ELECTROLYTE PANEL 2021-03-09 18:00:00 Alycia Bobo MD n SERUM CREATININE 2021-03-09 18:00:00 Alycia Bobo MD .GLOMERULAR FILTRATION RATE 2021-03-09 18:00:00 Alycia Bobo MD CALCIUM LEVEL TOTAL 2021-03-09 18:00:00 Alycia Bobo MD son ALBUMIN LEVEL 2021-03-09 18:00:00 Alycia Bobo MD ALKALINE PHOSPHATASE 2021-03-09 18:00:00 Alycia Bobo MD ALANINE AMINOTRANSFERASE 2021-03-09 18:00:00 Alycia Bobo MD ASPARTATE AMINOTRANSFERASE 2021-03-09 18:00:00 Alycia Bobo TOTAL PROTEIN 2021-03-09 18:00:00 Alycia Bobo MD FRACTIONATED BILIRUBIN 2021-03-09 18:00:00 Alycia Bobo MD PHOSPHORUS LEVEL 2021-03-05 18:14:00 Alycia Bobo MD MAGNESIUM LEVEL 2021-03-05 18:14:00 Alycia Bobo MD COMPREHENSIVE METABOLIC PANEL 2021-03-05 18:14:00 Alycia Bobo MD COMPLETE BLOOD COUNT W/ 2021-03-05 18:14:00 Alycia Bobo MD DIFFERENTIAL GLUCOSE LEVEL 2021-03-05 18:14:00 Alycia Bobo MD BLOOD UREA NITROGEN 2021-03-05 18:14:00 Alycia Bobo MD ELECTROLYTE PANEL 2021-03-05 18:14:00 Alycia Bobo MD SERUM CREATININE 2021-03-05 18:14:00 Alycia Bobo MD .GLOMERULAR FILTRATION RATE 2021-03-05 18:14:00 Alycia Bobo MD CALCIUM LEVEL TOTAL 2021-03-05 18:14:00 Alycia Bobo MD ALBUMIN LEVEL 2021-03-05 18:14:00 Alycia Bobo MD ALKALINE PHOSPHATASE 2021-03-05 18:14:00 Alycia Bobo MD ALANINE AMINOTRANSFERASE 2021-03-05 18:14:00 Alycia Bobo MD ASPARTATE AMINOTRANSFERASE 2021-03-05 18:14:00 Alycia Bobo TOTAL PROTEIN 2021-03-05 18:14:00 Alycia Bobo MD FRACTIONATED BILIRUBIN 2021-03-05 18:14:00 Alycia Bobo MD derson Results CBC 2021-03-05 18:14:00 Alycia Bobo MD MANUAL DIFFERENTIAL 2021-03-05 18:14:00 Alycia Bobo MD COMPLETE BLOOD COUNT W/ 2021-03-02 15:33:00 Fu, Allison nance DIFFERENTIAL COMPREHENSIVE METABOLIC PANEL 2021-03-02 15:33:00 Fu, Allison Villarreal MAGNESIUM LEVEL 2021-03-02 15:33:00 Fu, Allison Villarreal PHOSPHORUS LEVEL 2021-03-02 15:33:00 Fu, Allison Villarreal Results CBC 2021-03-02 15:33:00 Fu, Allison Villarreal MANUAL DIFFERENTIAL 2021-03-02 15:33:00 Fu, Allison perez GLUCOSE LEVEL 2021-03-02 15:33:00 Fu, lAlison Villarreal BLOOD UREA NITROGEN 2021-03-02 15:33:00 Fu, Allison perez ELECTROLYTE PANEL 2021-03-02 15:33:00 Fu, Allison frances SERUM CREATININE 2021-03-02 15:33:00 Fu, Allison Villarreal .GLOMERULAR FILTRATION RATE 2021-03-02 15:33:00 Fu, Allison Villarreal CALCIUM LEVEL TOTAL 2021-03-02 15:33:00 Fu, Allison BAEZ Ludwig son ALBUMIN LEVEL 2021-03-02 15:33:00 Fu, Allison Villarreal ALKALINE PHOSPHATASE 2021-03-02 15:33:00 Fu, Allison morris ALANINE AMINOTRANSFERASE 2021-03-02 15:33:00 Fu, Allison Villarreal ASPARTATE AMINOTRANSFERASE 2021-03-02 15:33:00 Fu, Allison Villarreal TOTAL PROTEIN 2021-03-02 15:33:00 Fu, Allison Villarreal FRACTIONATED BILIRUBIN 2021-03-02 15:33:00 Fu, Allison Tom derson COMPLETE BLOOD COUNT W/ 2021-02-23 15:42:00 Fu, Allison Ma nderson DIFFERENTIAL COMPREHENSIVE METABOLIC PANEL 2021-02-23 15:42:00 Fu, Allison Villarreal MAGNESIUM LEVEL 2021-02-23 15:42:00 Fu, Allison Villarreal PHOSPHORUS LEVEL 2021-02-23 15:42:00 Fu, Allison Villarreal Results CBC 2021-02-23 15:42:00 Fu, Allison Villarreal MANUAL DIFFERENTIAL 2021-02-23 15:42:00 Fu, Allison perez GLUCOSE LEVEL 2021-02-23 15:42:00 Fu, Allison Villarreal BLOOD UREA NITROGEN 2021-02-23 15:42:00 Fu, Allison BAEZ Ludwig son ELECTROLYTE PANEL 2021-02-23 15:42:00 Fu, Allison frances SERUM CREATININE 2021-02-23 15:42:00 Fu, Allison Villarreal .GLOMERULAR FILTRATION RATE 2021-02-23 15:42:00 Fu, Allison Villarreal CALCIUM LEVEL TOTAL 2021-02-23 15:42:00 Fu, Allison BAEZ Ludwigaubrey perez ALBUMIN LEVEL 2021-02-23 15:42:00 Fu, Allison Villarreal ALKALINE PHOSPHATASE 2021-02-23 15:42:00 Fu, Allison morris ALANINE AMINOTRANSFERASE 2021-02-23 15:42:00 Fu, Allison Villarreal ASPARTATE AMINOTRANSFERASE 2021-02-23 15:42:00 Fu, Allison Villarreal TOTAL PROTEIN 2021-02-23 15:42:00 Fu, Allison Villarreal FRACTIONATED BILIRUBIN 2021-02-23 15:42:00 Fu, Allison Tom luis eson [facility] 2021-02-16 18:27:24 Alycia Bobo MD FREE THYROXINE 2021-02-16 16:39:00 Alycia Bobo MD PHOSPHORUS LEVEL 2021-02-16 16:39:00 Alycia Bobo MD THYROID STIMULATING HORMONE 2021-02-16 16:39:00 Alycia Boob MD URINALYSIS WITH MICROSCOPIC 2021-02-16 16:39:00 Alycia Bobo MD IF INDICATED BHCG 2021-02-16 16:39:00 Alycia Bobo MD CANCER ANTIGEN 125 2021-02-16 16:39:00 Alycia Bobo MD on CANCER ANTIGEN 15-3 2021-02-16 16:39:00 Alycia Bobo MD son COMPLETE BLOOD COUNT W/ 2021-02-16 16:39:00 Alycia Bobo MD DIFFERENTIAL COMPREHENSIVE METABOLIC PANEL 2021-02-16 16:39:00 Alycia Bobo MD MAGNESIUM LEVEL 2021-02-16 16:39:00 Alycia Bobo MD GLUCOSE LEVEL 2021-02-16 16:39:00 Alycia Bobo MD BLOOD UREA NITROGEN 2021-02-16 16:39:00 Alycia Bobo MD son ELECTROLYTE PANEL 2021-02-16 16:39:00 Alycia Bobo MD SERUM CREATININE 2021-02-16 16:39:00 Alycia Bobo MD .GLOMERULAR FILTRATION RATE 2021-02-16 16:39:00 Alycia Bobo MD CALCIUM LEVEL TOTAL 2021-02-16 16:39:00 Alycia Bobo MD son ALBUMIN LEVEL 2021-02-16 16:39:00 Alycia Bobo MD ALKALINE PHOSPHATASE 2021-02-16 16:39:00 Alycia Boboe rson ALANINE AMINOTRANSFERASE 2021-02-16 16:39:00 Alycia Bobo MD ASPARTATE AMINOTRANSFERASE 2021-02-16 16:39:00 Alycia Bobo TOTAL PROTEIN 2021-02-16 16:39:00 Alycia Bobo MD FRACTIONATED BILIRUBIN 2021-02-16 16:39:00 Alycia Bobo MD Results CBC 2021-02-16 16:39:00 Alycia Bobo MD MANUAL DIFFERENTIAL 2021-02-16 16:39:00 Alycia Bobo MD son URINALYSIS MICROSCOPIC 2021-02-16 16:39:00 Alycia Bobo MD ECHOCARDIOGRAM 2D COMPLETE 2021-02-13 20:25:[address] CHEST ABDOMEN PELVIS W WO 2021-02-12 18:55:00 Alycia Bobo MD CONTRAST OCT, RETINA - OU - BOTH EYES 2021-02-12 16:43:17 Gaetano Ley MD FUNDUS PHOTOS - OU - BOTH 2021-02-12 16:43:12 Gaetano Ley MD EYES EKG, 12-LEAD (SCHEDULED) 2021-02-12 00:00:00 Alycia Bobo MD PETCT SUBSEQUENT TREATMENT 2021-02-04 16:44:34 Esme Macdonald STRATEGY VERIFY CATHETER TIP PLACEMENT 2021-02-03 22:10:00 Jon Gtz MD COMPLETE BLOOD COUNT W/ 2021-02-02 22:44:00 Esme Macdonald MD nderson DIFFERENTIAL HEMOGLOBIN A1C 2021-02-02 22:44:00 Esme Macdonald MD CANCER ANTIGEN 125 2021-02-02 22:44:00 Esme Macdonald MD on THYROID STIMULATING HORMONE 2021-02-02 22:44:00 Esme Macdonald MD HEPATITIS C VIRUS ANTIBODY 2021-02-02 22:44:00 Esme Macdonald HIV-1/2 ANTIGEN AND 2021-02-02 22:44:00 Esme Macdonald MD son ANTIBODIES, FOURTH GENERATION HEPATITIS B SURFACE ANTIGEN, 2021-02-02 22:44:00 Esme Macdonald MD SERUM TYPE AND SCREEN 2021-02-02 22:44:00 Esme Macdonald MD ALBUMIN LEVEL 2021-02-02 22:44:00 Esme Macdonald MD MAGNESIUM LEVEL 2021-02-02 22:44:00 Esme Macdonald MD ELECTROLYTE PANEL 2021-02-02 22:44:00 Esme Macdonald MD n ALANINE AMINOTRANSFERASE 2021-02-02 22:44:00 Esme Macdonald MD ASPARTATE AMINOTRANSFERASE 2021-02-02 22:44:00 Esme Macdonald FRACTIONATED BILIRUBIN 2021-02-02 22:44:00 Esme Macdonald MD SERUM CREATININE 2021-02-02 22:44:00 Esme Macdonald MD BLOOD UREA NITROGEN 2021-02-02 22:44:00 Esme Macdonald MD Ludwig chris GLUCOSE, RANDOM 2021-02-02 22:44:00 Esme Macdonald MD Results CBC 2021-02-02 22:44:00 Esme Macdonald MD MANUAL DIFFERENTIAL 2021-02-02 22:44:00 Esme Macdonald MD Ludwig chris SERUM CREATININE 2021-02-02 22:44:00 Esme Macdonald MD .GLOMERULAR FILTRATION RATE 2021-02-02 22:44:00 Esme Macdonald MD ABORH 2021-02-02 22:44:00 Esme Macdonald MD ANTIBODY SCREEN 2021-02-02 22:44:00 Esme Macdonald MD HEPATITIS B SURFACE AG 2021-02-02 22:44:00 Esme Macdonald MD W/CONFIRM CLOT EXPIRATION DATE 2021-02-02 22:44:00 Silvia Browne MD rsbrian TMP INTERPRETATION ANTIBODY 2021-02-02 22:44:00 Esme Macdonald MD SCREEN NEGATIVE TMP HIV 1/2 AG&AB PATH INTERP 2021-02-02 22:44:00 Esme Macdonald MD TMP HCVAB INTERP 2021-02-02 22:44:00 Esme Macdonald MD CONFIRM ABORH TYPE 2021-02-02 22:42:00 Silvia Browne MD on XR CHEST 2 VW 2021-02-02 19:51:52 Esme Macdonald MD OSI CT CHEST ABDOMEN PELVIS 2020-10-27 18:02:00 Silvia Browne MD Plan of Care Planned Activity Planned Date Details Comments Source Future Scheduled Test 2020-11-27 00:00:00 COVID-19 Vaccination (3 MD Villarreal - Inadvertent risk 4-dose series) [code = COVID-19 Vaccination (3 - Inadvertent risk 4-dose series)] Encounters Start End Encounter Admission Attending Care Care Encounter Source Date/Time Date/Time Type Type Clinicians Facility Department ID 2021-04-14 Outpatient MDA MDA [id number] 16:14:59 Lionel frances 2021-04-13 Outpatient SYSTEM, MDA MDA [id number] 14:08:13 PROVIDER Dmitri o yvrose 2021-02-03 Outpatient SYSTEM, MDA MDA [id number] 06:57:29 PROVIDER Dmitri o yvrose 2020-12-28 Outpatient SYSTEM, MDA MDA [id number] 23:39:11 PROVIDER Dmitri o yvrose 2021-05-04 2021-05-05 Outpatient AUBREY BETTS, SINAN Emergency [id number] 09:42:00 14:08:00 RAVEN frances 2021-05-04 2021-05-04 Outpatient KAILA BOBO MDA MDA [id number] 07:45:00 09:41:00 ALYCIA frances 2021-05-04 2021-05-04 Outpatient ALLISON PADILLA MDA MDA [id number] 08:55:04 09:37:19 Dmitri o yvrose 2021-04-13 2021-04-13 Outpatient ALLISON PADILLA MDA MDA [id number] 10:34:51 23:59:00 Dmitri frances 2021-04-13 2021-04-13 Outpatient KAILA BROWNE MDA MDA [id number] 10:40:11 10:40:11 SILVIA frances 2021-04-13 2021-04-13 Outpatient KAILA BROWNE MDA MDA [id number] 10:40:05 10:40:05 SILVIA Dmitri o n 2021-04-13 2021-04-13 Outpatient ALLISON SCOTT MDA MDA [id number] 09:01:57 10:25:00 Dmitri o n 2021-04-12 2021-04-12 Outpatient KAILA BOBO, MDA MDA [id number] 11:08:17 23:59:00 ALYCIA Dmitri o n 2021-04-12 2021-04-12 Outpatient EL LOBO, MDA MDA [id number] MD 10:42:34 11:07:00 CLOKEEGAN Dmitri o n 2021-04-03 2021-04-03 Outpatient EL LOBO, MDA MDA [id number] 07:30:00 23:59:00 CLOKEEGAN Dmitri o n 2021-04-03 2021-04-03 Outpatient EL LOBO, MDA MDA [id number] 08:47:43 08:47:43 AFSANEH Dmitri o n 2021-03-30 2021-03-30 Outpatient JIHAN, MDA MDA [id number] 06:15:00 23:59:00 ALYCIA Dmitri o n 2021-03-30 2021-03-30 Outpatient EL ALBA, MDA MDA [id number] 10:58:48 10:58:48 AFSANEH Dmitri o n 2021-03-16 2021-03-17 [facility] MDA Emergency [id number] 10:44:00 10:04:00 AKOSUA Holcombers o n 2021-03-16 2021-03-16 Outpatient BOBO, MDA MDA [id number] MD 08:37:45 11:03:06 ALYCIA Dmitri o n 2021-03-10 2021-03-10 Outpatient ALLISON SCOTT MDA MDA [id number] 08:19:48 23:59:00 Dmitri o n 2021-03-09 2021-03-09 Outpatient TYLER, SUYAPAQING MDA MDA [id number] 14:56:00 23:59:00 Dmitri o n 2021-03-09 2021-03-09 Outpatient EL RYDER, MDA MDA [id number] MD 14:13:43 14:55:00 SILVIA Dmitri o n 2021-03-09 2021-03-09 Outpatient KAILA BOBO, MDA MDA [id number] MD 11:43:29 14:12:00 ALYCIA Dmitri o n 2021-03-09 2021-03-09 Outpatient ALLISON PADILLA MDA MDA [id number] MD 12:21:44 13:43:56 Dmitri o n 2021-03-05 2021-03-05 Outpatient KAILA BOBO, MDA MDA [id number] MD 07:00:00 23:59:00 ALYCIA Dmitri o n 2021-03-02 2021-03-02 Outpatient ALLISON PADILLA MDA MDA [id number] MD 07:45:00 23:59:00 Dmitri o n 2021-03-02 2021-03-02 Outpatient KAILA BOBO, MDA MDA [id number] MD 11:13:21 12:57:05 ALYCIA Dmitri o n 2021-02-23 2021-02-23 Outpatient ADELSO, MDA MDA [id number] MD 10:44:31 23:59:00 GUILLERMINA Dmitri o n 2021-02-23 2021-02-23 Outpatient ALLISON SCOTT MDA MDA [id number] MD 09:00:36 10:43:00 Dmitri o n 2021-02-23 2021-02-23 Outpatient KAILA BOBO, MDA MDA [id number] MD 09:54:41 09:54:41 ALYCIA Dmitri o n 2021-02-16 2021-02-16 Outpatient KAILA BOBO, MDA MDA [id number] MD 13:08:09 23:59:00 ALYCIA Dmitri o n 2021-02-16 2021-02-16 Outpatient RYDER, MDA MDA [id number] MD 12:11:03 13:07:00 SILVIA Dmitri o n 2021-02-16 2021-02-16 Outpatient ALLISON PADILLA MDA MDA [id number] MD 10:52:06 12:18:05 Dmitri o n 2021-02-16 2021-02-16 Outpatient KAILA BOBO, MDA MDA [id number] MD 10:15:16 12:10:00 ALYCIA Dmitri o n 2021-02-16 2021-02-16 Outpatient EL MDA MDA [id number] MD 10:29:15 10:29:15 Dmitri o n 2021-02-13 2021-02-13 Outpatient KAILA BOBO, MDA MDA [id number] MD 13:33:12 23:59:00 ALYCIA Dmitri o n 2021-02-12 2021-02-12 Outpatient EL THEODORA, MDA MDA [id number] MD 09:50:35 23:59:00 GAETANO Dmitri o n 2021-02-12 2021-02-12 Outpatient KAILA BOBO, MDA MDA [id number] MD 11:32:22 11:32:22 ALYCIA Dmitri o n 2021-02-12 2021-02-12 Outpatient KAILA BOBO, MDA MDA [id number] MD 08:58:53 09:49:00 ALYCIA Dmitri o n 2021-02-04 2021-02-04 Outpatient RYDER, MDA MDA [id number] MD 08:15:25 08:15:25 SILVIA Dmitri o n 2021-02-02 2021-02-02 Outpatient RYDER, MDA MDA [id number] MD 12:57:46 23:59:00 SILVIA Dmitri o n 2021-02-02 2021-02-02 Outpatient ALLISON SCOTT MDA MDA [id number] MD 14:15:05 15:57:04 Dmitri o n 2021-02-02 2021-02-02 Outpatient RYDER, MDA MDA [id number] MD 13:40:17 13:40:17 SILVIA Dmitri o n 2021-02-02 2021-02-02 Outpatient RYDER, MDA MDA [id number] MD 10:48:36 12:53:28 SILVIA Dmitri o n 2021-02-02 2021-02-02 Outpatient EL MDA MDA [id number] MD 10:46:00 10:46:17 Dmitri o n 2021-01-07 2021-01-07 Outpatient RYDER, MDA MDA [id number] MD 12:43:53 12:43:53 SILVIA Dmitri o n 2021-01-07 2021-01-07 Outpatient KAILA BROWNE MDA [facility] [id number] 12:43:53 12:43:53 SILVIA frances Results Test Description Test Time Test Comments Results Result Comments Source Urine Culture 2021-05-06 19:33:28 Test Item Value Reference Range Interpretation Comme nts Final Report (test code = 8488) 10 - 50,000 cfu/ml Streptococcus A agalactiae (Group B)...10 - 50,000 cfu/ml Normal site eduardo present. Path Review - Urine (test code = 8483) The results have been review ed and A electronically signed by Pathologist:WILLY ELLISON MD #[id number] Lab Interpretation (test code = 69365-7) Abnormal MD VillarrealPhosphorus [id number] 11:58:19 Test Item Value Reference Range Interpretation Comments Phosphorus (test code = 2777-1) 2.8 mg/dL 2.5-4.5 MD VillarrealCalcium [id number] 11:58:18 Test Item Value Reference Range Interpretation Comments Calcium Lvl (test code = 50804-6) 9.4 mg/dL 8.4-10.2 MD VillarrealElectrolyte [id number] 11:58:17 Test Item Value Reference Range Interpretation Comments Sodium Lvl (test code = 132 See_Comment L [Au tomated message] 9418-2) The system [employer] generated this result transmitted ref erence range: 136 - 14 5 mEq/L. The refe rence range was not u sed to interpret this result as normal/abnor mal. Potassium Lvl (test code 4.1 See_Comment [A utomated message] = 1660-3) The system [employer] generated this result transmitted ref erence range: 3.5 - 5. 1 mEq/L. The refe rence range was not u sed to interpret this result as normal/abnor mal. Chloride (test code = 100 See_Comment [Auto mated message] 5953-0) The system [employer] generated this result transmitted ref erence range: 98 - 107 mEq/L. The refe rence range was not u sed to interpret this result as normal/abnor mal. CO2 (test code = 2027-11) 20 See_Comment L [A utomated message] The system [employer] generated this result transmitted ref erence range: 22 - 29 mEq/L. The reference r steffen was not used to interpret this result as normal/abnor mal. Anion Gap (test code = 12 See_Comment [Aut omated message] 93147-5) The system [employer] generated this result transmitted ref erence range: 4 - 14 m Eq/L. The reference r steffen was not used to interpret this result as normal/abnor mal. Lab Interpretation (test Abnormal code = 25520-6) MD VillarrealGlucose [id number] 11:58:16 Test Item Value Reference Range Interpretation Comments Glucose Level (test code 122 mg/dL 70-99 H Eff ective 10/01/15, = 2345-7) the glucose reference inter vals have been updat ed based on [place] an Diabetes Associ ation guidelines (Standards of Medical Care in Diabetes 2016. Diabetes Care 2 016; 39: S13-S22).Fa sting blood glucose:Normal: 70-99 mg/dLImpa ired fasting glucose (increased risk for diabetes or pre-diabetes): 100-125 mg/dLDiabetes mellitus: >/=1 26 mg/dL Random bl ood glucose:Normal: 70-199 mg/dLNot e: Random glucose >100 mg/dL is associ ated with increased risk for diabetes Lab Interpretation (test Abnormal code = 82875-3) MD VillarrealGlomerular Filtration [id number] 11:58:15 Test Item Value Reference Range Interpretation Comments eGFR-AA (test code 74 See_Comment Normal eG FR: >= 60 = 21541-3) mL/min/1.73 m2N ote: The eGFR is calculated u sing the CKD-EPI equatio n. The eGFR declines with a ge. eGFR <60 mL/min/1.73 m2 is considered as "decreased". This equation should only be used for patients 18 and older. According to National Kid[employer] on's Kidney Disease Outcome Quality Initiative (KDO QI) classification and 2012 Kidney Disease Improving Global Outcomes (KDIGO) Clinical Practi ce Guideline, the stage of CK D should be categorized bas ed on estimated GFR. Stage Description GFR mL/min/1.73 m21 Normal or high GFR >=902 Mildly decrease d GFR 60-893a M ildly to moderately decr eased GFR 45-593b Moderat missael to severely decrea sed GFR 30-444 Severely decreased GFR 15-295 Kid mayco failure <15 [Automa william message] The system [employer] generated this result tra nsmitted reference range : >=60 mL/min/1.73 sq. m. The reference range was not used to interpret th is result as normal/abnormal . eGFR-LORELEI (test code 65 See_Comment Normal e GFR: >= 60 = 17447-1) mL/min/1.73 m2N ote: The eGFR is calculated u sing the CKD-EPI equatio n. The eGFR declines with a ge. eGFR <60 mL/min/1.73 m2 is considered as "decreased". This equation should only be used for patients 18 and older. According to th e National Kidney Found[employer] on's Kidney Disease Outcome Quality Initiative (KDO QI) classification and 2012 Kidney Disease Improving Global Outcomes (KDIGO) Clinical Practi ce Guideline, the stage of CK D should be categorized bas ed on estimated GFR. Stage Description GFR mL/min/1.73 m21 Normal or high GFR >=902 Mildly decrease d GFR 60-893a M ildly to moderately decr eased GFR 45-593b Moderat missael to severely decrea sed GFR 30-444 Severely decreased GFR 15-295 Kid mayco failure <15 [Automa william message] The system [employer] generated this result tra nsmitted reference range : >=60 mL/min/1.73 sq. m. The reference range was not used to interpret th is result as normal/abnormal . MD VillarrealMagnesium [id number] 11:58:14 Test Item Value Reference Range Interpretation Comments Magnesium (test code = 66288-9) 1.5 mg/dL 1.6-2.6 L Lab Interpretation (test code = Abnormal 42423-0) MD Villarreal.Serum Pdgutjjzhg0600-65-97 11:58:13 Test Item Value Reference Range Interpretation Comments Creatinine (test code = 2160-0) 0.89 mg/dL 0.51-0.95 MD VillarrealIimuclxmDLE1703-87-36 11:58:12 Test Item Value Reference Range Interpretation Comments BUN (test code = 3094-0) 11 mg/dL 6-23 MD VillarrealViplzfghZxrmzqmdatuf3468-55-18 11:31:00 Test Item Value Reference Range Interpretation Comments Neutrophil % (test code = 77.2 % 42.0-66.0 H 770-8) Lymphocyte % (test code = 10.2 % 24.0-44.0 L 736-9) Monocyte % (test code = 9.4 % 2.0-7.0 H 5905-5) Eosinophil % (test code = 2.0 % 1.0-4.0 713-8) Basophil % (test code = 0.4 % 0.0-1.0 28464-2) IGRE % (test code = 0.8 % 0.0-0.4 H IGRE % c ount 92015-5) includes Metamyelocytes, Myelocytes, and Promyelocytes. Neutrophil Abs (test code 5.94 K/uL 1.70-7.30 = 751-8) Lymphocyte Abs (test code 0.78 K/uL 1.00-4.80 L = 731-0) Monocyte Abs (test code = 0.72 K/uL 0.08-0.70 H 742-7) Eosinophil Abs (test code 0.15 K/uL 0.04-0.40 = 711-2) Basophil Abs (test code = 0.03 K/uL 0.00-0.10 704-7) IG Abs (test code = 0.06 K/uL 0.00-0.04 H 90255-9) Lab Interpretation (test Abnormal code = 76400-5) MD Villarreal.HWA4229-14-31 11:30:55 Test Item Value Reference Range Interpretation Comments WBC (test code = 7.7 K/uL 4.0-11.0 6690-2) RBC (test code = 789-8) 2.82 See_Comment L [Au tomated message] The system [employer] generated this result transmitted ref erence range: 4.00 - 5 .50 M/uL. The refer ence range was not u sed to interpret this result as normal/abnor mal. Hgb (test code = 718-7) 8.4 See_Comment L [Au tomated message] The system [employer] generated this result transmitted ref erence range: 12.0 - 1 6.0 gm/dL. The refe rence range was not u sed to interpret this result as normal/abnor mal. Hct (test code = 26.4 % 37.0-47.0 L 4544-3) MCV (test code = 787-2) 94 fL 82-98 MCH (test code = 785-6) 29.8 pg 27.0-31.0 MCHC (test code = 31.8 See_Comment [Automate d message] 786-4) The system [employer] generated this result transmitted ref erence range: 31.0 - 3 6.0 gm/dL. The refe rence range was not u sed to interpret this result as normal/abnor mal. RDW-SD (test code = 45.6 fL 35.1-46.3 82447-1) RDW-CV (test code = 13.3 % 12.0-15.5 788-0) Platelet count (test 238 K/uL 140-440 code = 777-3) MPV (test code = 8.8 fL 4.0-10.4 25507-9) INRBC (test code = 0.0 % See_Comment The INRBC (instrument 49018-3) NRBC) value ref lects the enumeration of nucleated red b lood cells contained in a 200uL sampleof whole blood analyzed by the instrument. Thi s value maydiffer from the NRBC value repo rted in a manual differential,wh ich is based on a 100 cell differential. [Automated mess age] The system [employer] generated this result transmitted ref erence range: <=0.0. T he reference range was not used to int erpret this result as normal/abnormal . Lab Interpretation Abnormal (test code = 18064-9) MD VillarrealCOVID-19 (SARS-CoV-2)Aoyznwhbizzh-UQ1746-44-28 19:47:22 Test Item Value Reference Range Interpretation Comments COVID19 Not Detected Not Detected (SARS-CoV-2) (test code = 48271-5) COVID19 SARS Inpatient Indication (test Admission code = 36839) Covid 19 Comment See Note The denise S ARS-CoV-2 (test code = [place] [address]) use on the mai s [employer] System is a marta l-time RT-PCR assay in tended for the qualita tive detection of SARS-CoV-2 (COV ID-19) viral RNA in nasopharyngeal swabs from either individuals aubrie pected of COVID-19 by their healthcare prov ider or from any individual, inc luding individuals wit hout symptoms or oth er reasons to susp ect COVID-19. A fa ct sheet for patie nts provided by the [employer] ([employer], LOANZ) can be rev iewed at: https://www.fda .gov/m edia/310273/kenny nload. A fact sheet fo r Health Care pro viders is provided by the [employer] ([employer], LOANZ) and can be reviewed at: https://www.fda .gov/m edia/351789/kenny nload Results must be interpreted wit hin the context of all relevant clinic al and laboratory find ings and should not form the sole basis for a diagnosis or treatment decis ion. Positive result s do not rule out bacterial infec tion or co-infection with other viruses. Negative result s do not preclude SARS-CoV-2 infe ction and must be com bined with clinical observations, p atient history, and/or epidemiological information. Th is assay has been authorized by t DPSI for use only un luis e Emergency Use Authorization ( EUA) in laboratories that have been CLIA-certified to perform moderate-comple xity and high-comple xity tests. The Microbiology Laboratory at [facility], CLIA Accreditation #[id number] and CAP Accreditation #[id number], verif ied the performance characteristics of this assay. Int ernal controls are us ed to monitor all sta ges of the test proces s. MD VillarrealUrinalysis with Kvhbadrfngy1242-87-98 17:39:37 Test Item Value Reference Interpretation Comments Range UA WBC (test code = >182 See_Comment H [Automa william 68945-1) message] The system which generated this result transmitted reference range : 0 - 2 /HPF. The reference range was not used to interpret this result as normal/abnormal . UA RBC (test code = 56 See_Comment H [Automa william 63885-2) message] The system which generated this result transmitted reference range : 0 - 2 /HPF. The reference range was not used to interpret this result as normal/abnormal . UA Mucous (test code NOT SEEN Not Seen-Trace = 54575-2) /HPF UA Bacteria (test NOT SEEN NOT SEEN /HPF code = 56004-9) UA Squam Epi (test NOT SEEN None-Occasiona code = 20843-4) l /HPF UA Trans Epi (test 3+ NOT SEEN /HPF A code = 11160-1) UA WBC Clump (test 2+ NOT SEEN /HPF A code = 02324-6) ALBA (test code = Some reporting ALBA) parameters within the Urinalysis test have changed due to the implementation of new instrumentation in the [facility] [place], allowing greater sensitivity of measurement. Urinalysis results reported by the [facility] using existing instrumentation, as well as Urinalysis testing performed manually or by backup methodology at the [facility] will remain relatively unchanged. New reporting parameters and units will now be reported for all campuses. Lab Interpretation Abnormal (test code = 82789-4) MD VillarrealUrinalysis w/Microscopic if Iuuuwagvs1225-34-80 15:51:12 Test Item Value Reference Range Interpretation Comments UA Color (test code = 18124-8) Yellow Straw-Yellow UA Appear (test code = 5767-9) Cloudy Clear A UA Glucose (test code = 5792-7) NEG NEG mg/dL UA Bili (test code = 5770-3) NEG NEG UA Ketones (test code = 5797-6) NEG NEG mg/dL UA Spec Grav (test code = 5810-7) 1.023 1.003-1.035 UA Blood (test code = 5794-3) Small NEG A UA pH (test code = 5803-2) 5.0 5.0-9.0 UA Protein (test code = 5804-0) 100 mg/dL NEG A UA Urobilinogen (test code = NEG NEG 5818-0) UA Nitrite (test code = 5802-4) NEG NEG UA Leuk Est (test code = 5799-2) Moderate NEG A Lab Interpretation (test code = Abnormal 16641-0) MD VillarrealFractionated Xhcpdilhi9412-94-07 15:42:51 Test Item Value Reference Range Interpretation Comments Bili Total (test 0.3 mg/dL See_Comment Indocyanine Green (ICG) code = 1975-2) may cause fal sely elevated biliru bin results. Total and direct bilirubin must not be measured from s amples containing indo cyanine green. False el evation of total bilirubin can be seen in patient s with IgG concentrations above 28 g/L. [Automate d message] The system whic h generated this result transmitted ref erence range: <=1.2. T he reference range was not used to interpr et this result as normal/abnormal . Bili Direct (test <0.2 See_Comment Indocyanin e Green (ICG) code = 1967-09) may cause fal sely elevated biliru bin results. Total and direct bilirubin must not be measured from s amples containing indo cyanine green. [Automat ed message] The sy stem which generated this result transmitted ref erence range: <=0.3 mg /dL. The reference range was not used to interpr et this result as normal/abnormal . Bili Indirect (test See Note 0.0-0.9 Unable t o calculate code = 1970-03) Indirect Bili ni result due to some par ameters are outside rep ortable range MD VillarrealTotal Epemhal1349-50-86 15:42:45 Test Item Value Reference Range Interpretation Comments Total Protein (test code = 2885-2) 7.4 g/dL 6.4-8.3 MD VillarrealAlkaline Fttbdhedahx9417-78-73 15:42:44 Test Item Value Reference Range Interpretation Comments Alk Phos (test code = 6768-6) 395 U/L 35-104 H Lab Interpretation (test code = Abnormal 17200-9) MD VillarrealAlbumin Zzvey0670-11-13 15:42:42 Test Item Value Reference Range Interpretation Comments Albumin Lvl (test code 3.7 See_Comment [Aut omated message] The = 4273) system which ge nerated this result tra nsmitted reference range : 3.5 - 5.2 gm/dL. The refe rence range was not used to interpret this result as normal/abnormal . MD VillarrealAspartate Ogomfavagcqkukac7810-23-28 15:42:40 Test Item Value Reference Range Interpretation Comments AST (test code = 20 U/L See_Comment [Automated message] The 1919-10) system which ge nerated this result transmit william reference range : <=32. The reference range was not used to interpr et this result as rosie l/abnormal. MD VillarrealJtycjxutGXS2941-28-64 15:42:39 Test Item Value Reference Range Interpretation Comments ALT (test code = 1742-6) 44 U/L See_Comment H [A utomated message] The system [employer] generated this result transmitted ref erence range: <=33. Th e reference range was not used to int erpret this result as normal/abnormal . Lab Interpretation (test Abnormal code = 19740-1) MD VillarrealUrinalysis with Reflex to Microscopic Reference [id number] 12:00:48 Test Item Value Reference Range Interpretation Comments UA Color (test code = YELLOW YELLOW 7877) UA Appear (test code = TURBID CLEAR A 7868) UA Bili (test code = NEGATIVE NEGATIVE 7871) UA Ketones (test code = NEGATIVE NEGATIVE 7884) UA Spec Grav (test code 1.017 1.001-1.035 = 7894) UA Blood (test code = 2+ NEGATIVE A 7872) UA pH (test code = 7909) 5.5 5.0-8.0 UA Protein (test code = 2+ NEGATIVE A 7890) UA Nitrite (test code = NEGATIVE NEGATIVE 7888) UA Leuk Est (test code = 2+ NEGATIVE A 7886) UA Glucose (test code = NEGATIVE NEGATIVE 7881) UA WBC (test code = > OR = 60 See_Comment A [Automa william message] 7904) The system [employer] generated this result transmit william reference range : < OR = 5 /HPF. Th e reference range was not used to interpret this result as normal/abnormal . UA RBC (test code = 20-40 See_Comment A [Automa william message] 7891) The system [employer] generated this result transmit william reference range : < OR = 2 /HPF. Th e reference range was not used to interpret this result as normal/abnormal . UA Squam Epi (test code 0-5 See_Comment [Au tomated message] = 7896) The system [employer] generated this result transmit william reference range : < OR = 5 /HPF. Th e reference range was not used to interpret this result as normal/abnormal . UA Bacteria (test code = NONE SEEN NONE SEEN /HPF 7870) UA Hyal Cast (test code NONE SEEN NONE SEEN /LPF La b test performed = 7883) by:Lab Mnemonic : [facility] [id number] [place] [address]HIZTV Joey MEIER MD Lab Interpretation (test Abnormal code = 55078-5) Alicia [id number] 17:40:39 Test Item Value Reference Range Interpretation Comments CA 15-3 19.4 U/mL See_Comment Results greater than 2400.0 U/mL (test code = may not be reli able due to 5170) matrix effect w ith extended dilution as it exceeds the cook tortilla's recommended limit. Caution should be exercised when interpreting such values and done in conjunction with clinical c ontext.This test is measured by electrochemilum inescence immunoassay on Travis Denise immunoassay brigid lyzers. Results obtained in dif ferent methods are not interch angeable. [Automated mess age] The system which generated this result transmitted ref erence range: <=25.0. The ref erence range was not used to int erpret this result as rosie l/abnormal. MD Leger [id number] 17:40:38 Test Item Value Reference Range Interpretation Comments T4 Free (test code = 7502) 1.51 ng/dL 0.93-1.70 MD [id number] 17:40:37 Test Item Value Reference Range Interpretation Comments TSH (test code = 7578) 0.23 See_Comment L [Aut omated message] The system [employer] generated this result transmitted ref erence range: 0.27 - 4 .20 mcunit/mL. The reference range was not used to int erpret this result as normal/abnormal . Lab Interpretation (test Abnormal code = 79733-4) MD VillarrealREHAN [id number] 17:40:36 Test Item Value Reference Range Interpretation Comments CA 125 (test 18.0 U/mL See_Comment Results greater than 11,500.0 code = 5169) U/mL may not be reliable due to matrix effect w ith extended dilution as it exceeds the cook tortilla's recommended limit. Caution should be exercised when interpreting such values and done in conjunction with clinical c ontext.This test is measured by electrochemilum inescence immunoassay on Travis Denise immunoassay brigid lyzers. Results obtained in dif ferent methods are not interchangeable .Reference intervals are n ot available for male patients. Results should be interpreted in conjunction with clinical contex t. [Automated message] The sy stem which generated this result transmitted ref erence range: <=38.0. The ref erence range was not used to int erpret this result as rosie l/abnormal. MD VillarrealTMP Interpretation Antibody Screen [id number] 18:31:00 Test Item Value Reference Range Interpretation Comments TMP Auto Neg At the present ABSC Interp time, patient (test code = plasma shows no ____NEELAM CONTRERAS 7535) evidence of RBC LUCIANO DAVENPORT MD alloantibodies. - [id number] william by: NEELAM OCONNELL MD - [id number] Date/Time: 03.08 12:30 PM WILD LIFE PHOTOGRAPHER Transcribed Shukri e/Time: 04.04.2021 12:3 0 PM CSTElectronical ly Signed By: NEELAM OCONNELL MD - [id number] on 12:30 PM MD VillarrealAntibody [id number] 20:16:07 Test Item Value Reference Range Interpretation Comments ABSC. (test code = 890-4) Negative ABSC MD [id number] 20:12:39 Test Item Value Reference Range Interpretation Comments ABORh. (test code = 882-1) A POS MD VillarrealClot Expiration [id number] 20:12:28 Test Item Value Reference Range Interpretation Comments T & S Expiration (test code = 04/06/2021 5318) MD VillarrealJfbfmtsnUeheczmwha5223-93-84 13:15:47 Test Item Value Reference Range Interpretation Comments Hct (test code = 5860) 23.7 % 37.0-47.0 L Lab Interpretation (test code = Abnormal 55536-4) MD VillarrealUdlzvfdiQlkyuhrfcb8366-73-09 13:15:46 Test Item Value Reference Range Interpretation Comments Hgb (test code = 5898) 7.4 See_Comment L [Aut omated message] The system [employer] h generated this result transmitted ref erence range: 12.0 - 1 6.0 gm/dL. The refe rence range was not u sed to interpret this result as normal/abnor mal. Lab Interpretation (test Abnormal code = 15978-0) MD VillarrealHemoglobin [id number] 12:13:23 Test Item Value Reference Range Interpretation Comments A1C (test code = 5.6 % 4.3-5.6 HbA1c value s >=6.5% are 4632) diagnostic of d iabetes mellitus.Diagno sis should be confirmed by repeat testing.Therape utic Action suggested: >8.0 % HbA1c; Goal oftherapy: <7.0% HbA1c MD VillarrealLipid [id number] 11:06:11 Test Item Value Reference Range Interpretation Comments Chol (test code = 102 mg/dL See_Comment ATP III Cl assification 5283) of Total Choles terol Primary Target of Therapy (in mg/dL):<200 Ncdufyjcj208-62 9 Borderline high >=240 High [Auto mated message] The sy stem which generated this result transmit william reference range : <=199. The refe rence range was not u sed to interpret this result as normal/abnor mal. Trig (test code = 218 mg/dL See_Comment H ATP III Cl assification 7655) of Serum Trigly cerides Primary Target of Therapy (in mg/dL):<150 Rrptic591-711 Borderline high 200-499 High>=500 Very highNon-fa sting triglycerides > 200 mg/dL may be fo llowed up with a fasti ng Lipid Panel. Calculated LDL- C may be falsely decr eased when non-fastin g triglycerides > 200 mg/dL. [Automa william message] The sy stem which generated this result transmit william reference range : <=149. The refe rence range was not u sed to interpret this result as normal/abnor mal. HDL (test code = 5763) 34 mg/dL See_Comment L [Aut omated message] The system [employer] generated this result transmitted ref erence range: >=40. Th e reference range was not used to int erpret this result as normal/abnormal . LDL (test code = 6123) 24 mg/dL See_Comment ATP I II Classification of LDL Choleste rol Primary Target of Therapy (in mg/dL):<100 Volywcc283-213 Near optimal/above vjnxlaf863-679 Borderline high 160-189 High>=190 Very high [Automated mess age] The system whic h generated this result transmitted ref erence range: <=100. T he reference range was not used to int erpret this result as normal/abnormal . VLDL (test code = 44 mg/dL 7986) Lab Interpretation Abnormal (test code = 86740-0) MD [id number] 18:25:10 Test Item Value Reference Range Interpretation Comments LDH (test code = 162 U/L 135-214 Results gre ater than 1651 6111) U/L may not be reliable due to matrix effec t with extended diluti on as it exceeds the man ufacturer s recommended l imit. Caution should be exercised when interpreti ng such values and done in conjunction wit h clinical context. MD [id number] 18:19:05 Test Item Value Reference Range Interpretation Comments aPTT (test code = 6773) 69.3 See_Comment H Rech ecked and Verified [Autom ated message] The sy stem which generated this result transmit william reference range : 24.7 - 36.8 second(s ). The reference range was not used to int erpret this result as normal/abnormal . Lab Interpretation (test Abnormal code = 25881-8) MD VillarrealProthrombin Time with [id number] 18:19:04 Test Item Value Reference Range Interpretation Comments PT (test code = 6746) 14.5 See_Comment H Rechec ked and Verified [Autom ated message] The sy stem which generated this result transmit william reference range : 11.5 - 13.9 second(s ). The reference range was not used to int erpret this result as normal/abnormal . INR (test code = 5973) 1.22 0.90-1.10 H Reche cked and Verified Lab Interpretation (test Abnormal code = 72570-8) MD VillarrealAmmonia [id number] 18:01:34 Test Item Value Reference Range Interpretation Comments Ammonia (test code = <13 See_Comment [Autom ated message] The 4799) system which ge nerated this result tra nsmitted reference range : 11 - 51 mcmol/L. The re ference range was not u sed to interpret this result as normal/abnormal . MD March [id number]+[id number] 17:39:32 Test Item Value Reference Range Interpretation Comments POC VB pH (test code 7.36 7.31-7.41 = 6719) POC VB pCO2 (test 39 See_Comment L [Automate d message] code = 6718) The system [employer] h generated this result transmitted ref erence range: 41 - 51 mmHg. The reference r steffen was not used to interpret this result as normal/abnor mal. POC VB pO2 (test 34 mmHg code = 6720) POC VB TCO2 (test 23 See_Comment L [Automate d message] code = 2026-1) The system wh ich generated this result transmitted ref erence range: 24 - 29 mEq/L. The reference r steffen was not used to interpret this result as normal/abnor mal. POC VB Bicarb (test 22 mmol/L 23-28 L code = 26499-4) POC VB Base Ex (test -3 mmol/L -2-3 L code = 1927-3) POC VB O2 Sat (test 64 % code = 2711-0) POC VB LAC (test 0.7 mmol/L 0.9-1.7 L Method desc ription: code = 2519-7) The i-STAT is an analyzer used f or in vitro quantific ation of various anal ytes in whole blood. The device uses a s babita disposable cart ridge which contains microfabricated sensors, a calibration kevin VirtualScopicson, fluidics system , and a waste chamber . Each test cartridge contains chemic ally sensitive biose nsors on a Hotelcloud ip that are config ured to perform spec ific tests. The microfabricated sensors measure analyte concent ration by an electroch emical assay. POC Sample Type Venous (test code = 6690) POC Clean Dev (test Yes code = 6672) Performing Lab (test MDA Main Main Ca mpus code = 88195) [facility], [address], [place] [address]; Senior Construction Project Manager: Liliana Gil MD Lab Interpretation Abnormal (test code = 20614-8) [facility] Glucose [id number] 17:20:31 Test Item Value Reference Interpretation Comments Range POC Glucose (test 105 mg/dL 70-99 H Capillary blood code = 20980-4) samples, e.g . obtained by fingerstick, ma y have inaccurate resu lts in patients with decreased perip heral blood flow. Met hod description: Al l results are jeramy sured using Electrochemistr y test methodology. Th e glucose in the sample mixes with the reagents on the test strip. The reac tion produces an tamara ctric current. The am ount of current prod uced is proportional to the glucose concentration i n the blood. PO Sample Type (test Capillary code = 9554) Performing Lab (test [facility] Michigamme code = 25557) [facility] MD Villarreal Cli nical Lab, [address] [facility] [place], [place] [address]; Senior Construction Project Manager: Liliana Gil MD Lab Interpretation Abnormal (test code = 92377-2) [facility] [id number] 17:54:05 Test Item Value Reference Range Interpretation Comments Beta HCG, 1.9 See_Comment [facility]regnanc y [facility] Reference (test code = 5080) Values:Ne gative: <5 mIU/mLIndetermi rosie: 5-25 mIU/mLPositive: >25 mIU/mL Values between 5 and 25 mIU/mL are inde terminate for . Consider confirming with repeat test in 72 hour s. Values in sh ould double every 3 days fo r the first 6 weeks. [Auto mated message] The [employer]ISE s.r.l stem which generated this result transmitted ref erence range: <=4.9 mI U/mL. The reference range was not used to interpr et this result as rosie l/abnormal. MD VillarrealHepatitis B Surface Ag w/Wpihjfi2567-23-42 11:00:29 Test Item Value Reference Range Interpretation Comments Hep Bs Ag-[facility] Negative Negative Test Perform ed by:[facility] (test code = [facility] - 5196-1) [place] [facility] [address] [place], [place] [address]Rvr Director: Derrell Andrade M.D. Ph. D.; CLIA# [id number] MD [facility] HIV 1/2 Ag&Ab Path [id number] 12:34:45 Test Item Value Reference Range Interpretation Comments HIV 1/2 Ag&Ab Negative for HIV-1 Interp (test antigen and code = 9394) HIV-1/HIV-2 MAY RIN antibodies. No RAMIREZ laboratory evidence Brayden REYEZ ictated by: of HIV infection. RIGOBERTO JACOBO If acute HIV DEREJE,Dictated infection is Date/Time: suspected, consider 02.05.20 6:34 AM testing for HIV-1 [employer] PHOTOGRAPHER Berman scribed RNA. Date/Time: 02.04.2021 6:34 AM CSTElectronical ly Signed By: BHAVIK REYEZ, on 02.04.2021 6:34 AM Abundio VillarrealTMEnedina HCV Ab Path [id number] 12:33:06 Test Item Value Reference Range Interpretation Comments HCV Ab Path There is NO Interp (test serologic evidence code = 8923) of Hepatitis C M AYRIN virus antibody. JAMES REYEZ,Dictated by: RIGOBERTO REYEZ,Dictated Date/Time: 02.04.2021 6:33 AM WILD LIFE PHOTOGRAPHER Transcrib ed Date/Time: 02.04.2021 6:33 AM CSTElectronical ly Signed By: BHAVIK REYEZ, on 02.04.2021 6:33 AM Abundio VillarrealHepatitis C Virus [id number] 04:31:10 Test Item Value Reference Range Interpretation Comments HCVAb. (test Non Reactive Non Reactive Antibody detect ion in the code = 5762) immunocompromis ed and immunosuppresse d population may be delayed or absent entirely. There fore serial testing, correl ation with other clinical findings, and supplementa l testing (if available) should be taken into cons ideration when interpreti ng the results.Perform ed at:MD Villarreal [facility] [id number] [place] [address], [place], [place] [address] MD VillarrealHIV-1/2 Antigen and Antibodies, Fourth [id number] 02:59:37 Test Item Value Reference Range Interpretation Comments HIV 1/2 Ag & Ab, Non Reactive Non Reactive Performed a t: 4th Gen (test code [facility] Donor = 9280) [id number] [facility], [place], [place] [address] MD VillarrealConfirm [id number] 03:42:16 Test Item Value Reference Range Interpretation Comments ABORh Confirm. (test code = 882-1) A POS MD VillarrealHepatitis B Surface [id number] 23:46:39 Test Item Value Reference Range Interpretation Comments HBsAg Received (test See Note HBsAg w as sent to a code = 38483) reference lab for testing. Expec t results on Hepa titis B Surface Antigen w/ Confirm within 96 hours. MD VillarrealGlucose, [id number] 23:35:54 Test Item Value Reference Range Interpretation Comments Glucose Random (test 162 mg/dL 70-199 Effecti ve 10/01/15, the code = 9360) glucose referen ce intervals have been updated based o n [place] [employer] tanya delines (Standards of M edical Care in Diabete s 2016. Diabetes Care 2 016; 39: S13-S22)Fasting blood glucose:Normal: 70-99 mg/dLImpaired f asting glucose (increa sed risk for diabetes or pre-diabetes): 100-125 mg/dLDiabetes m ellitus: >/= 126 mg/dL R andom blood glucose:N ormal: 70-199 mg/dLNot e: Random glucose >100 mg /dL is associated with increased risk for diabetes Testin g Performed at [facility] Attending Radiologist Bldg, [address], [address], [place] [address] MD Villarreal
[2021-05-08] MEDS ORDERED: NA CHLORIDE 0.9% 1,000 ML ONE (09:24)
[2021-05-08] MEDS ORDERED: NA CHLORIDE 0.9% 100 ML IV ONE (09:24)
[2021-05-08] MEDS ORDERED: CEFTRIAXONE 1000 MG/VIAL ONE (09:24)
[2021-05-08] MEDS ORDERED: MORPHINE 4 MG/ML SYR ONE ×3 (09:24→11:38)
[2021-05-08] MEDS ORDERED: ONDANSETRON 4 MG/2 ML VIAL ONE (09:24)
[2021-05-08 09:26] LABS: Absolute Lymphocytes (CBC) 0.5 K/uL (0.7-4.9); Hematocrit 25.5 % (36.0-45.0); Lymphocytes % 7.8 % (15.3-44.8); RBC Red Blood Cell Count 2.84 M/uL (3.86-4.86)
[2021-05-08 09:33] LABS: Protime INR 1.16
[2021-05-08 09:46] LABS: Albumin 2.6 g/dL (3.4-5.0); Bilirubin Direct 0.1 mg/dL (0-0.2); Bilirubin Total 0.3 mg/dL (0.2-1.0); Magnesium 2.1 mg/dL (1.8-2.4); Potassium 5.1 mmol/L (3.5-5.1); Protein, Total 7.4 g/dL (6.4-8.2); Troponin High Sensitivity 4.1 pg/mL (<58.9)
--- NOTE | 2021-05-08 10:55 | RAD REPORT ---
EXAM DESCRIPTION: CTAbdomen Pelvis W Contrast - 05/08/2021 10:09 am CLINICAL HISTORY: ABD PAIN COMPARISON: Abdomen Pelvis W Contrast dated 04/08/2021 TECHNIQUE: CT of the abdomen and pelvis was performed. All CT scans are performed using dose optimization technique as appropriate and may include automated exposure control or mA/KV adjustment according to patient size. FINDINGS: Lower chest: No acute abnormality. Liver: No acute abnormality or suspicious lesions. Biliary: No biliary ductal dilatation. Stomach: No significant focal abnormality. Duodenum: No significant focal abnormality. Pancreas: No significant abnormality. Spleen: No significant abnormality. Adrenal: No suspicious lesions. Kidney/ureter: No hydronephrosis. No renal calculi. Too small to characterize and/or benign appearing renal lesions are noted. Retroperitoneum: No retroperitoneal adenopathy. Vascular: No aneurysm. Bowel: Complex process in the pelvis with areas of irregular enhancement. This is along the Janet' s pouch.. Left-sided colostomy. Peritoneum: Possible enhancing mass with or without fistulous to the bladder and vaginal cuff. Presac ral edema. Bladder: Bladder wall thickening and enhancement. Reproductive: Hysterectomy. Vaginal thickening and enhancement. Bones: Pathologic pelvic fractures again identified. This includes the iliac bones, possibly the sacr um, and sclerosis at the pubic symphysis. Other: n/a IMPRESSION: Complex process in the pelvis with multiple enhancing tracks of fluid and/or mass. The b ladder wall is thickened and enhancing which may indicate infection or inflammation, possibly as a re sult of a fistula. There is fluid within the vaginal cuff which may indicate the presence of a fistul a. Cannot exclude a fistula from the Janet's pouch as well. In addition, the extent of enhancing s oft tissue raises concern for a local recurrence of the patient's known bladder cancer. Pelvic MRI wi th and without contrast may be able to better assess.
--- NOTE | 2021-05-08 11:00 | RAD REPORT ---
EXAM DESCRIPTION: RAD - Chest Single View - 05/08/2021 10:29 am CLINICAL HISTORY: COUGH COMPARISON: Chest Single View dated 04/08/2021 FINDINGS: Lines: None. Lungs: No evidence of edema or pneumonia. Pleural: No significant pleural effusions or pneumothorax. Cardiac: The heart size is within normal limits. Bones: No acute fractures. Rib deformity along the right upper thorax is unchanged . Other: Right upper chest wall Port-A-Cath. IMPRESSION: No acute cardiopulmonary disease.
--- NOTE | 2021-05-08 11:56 | ER ---
Nurse's Notes [facility] Name: Kristin Johnson Age: 71 yrs Sex: Female : 1950 Arrival Date: 05/08/2021 Time: 08:30 Bed 16 Private MD: Diagnosis: Dysuria-bladder cancer recurrence;UTI/ Urinary tract infection, site not specified;Pelvic and perineal pain-bladder cancer, fistula, infection Presentation: 05/08 08:33 Chief complaint: Patient states: pt is in trial chemotherapy for bladder cancer and is cb5 in unbearable pain. Coronavirus screen: Client denies travel out of the [place] in the last 14 days. Client indicates they have traveled out of the [place] in the last 14 days. At this time, unable to obtain information related to travel outside the [place] Ebola Screen: Patient negative for fever greater than or equal to 101.5 degrees Fahrenheit, and additional compatible Ebola Virus Disease symptoms Patient denies exposure to infectious person. Initial Sepsis Screen: Does the patient meet any 2 criteria? No. Patient's initial sepsis screen is negative. Risk Assessment: Do you want to hurt yourself or someone else? Patient reports no desire to harm self or others. 08:33 Method Of Arrival: EMS: [facility] cb5 08:33 Acuity: MILA 3 cb5 08:45 Initial Sepsis Screen: Does the patient have a suspected source of infection? No. cb5 Patient's initial sepsis screen is negative. Triage Assessment: 08:36 General: Appears uncomfortable, slender, well groomed, Behavior is cooperative, cb5 restless. Pain: Complains of pain in pt states pain is in her ballder, burning Pain currently is 9 out of 10 on a pain scale. at worst was 9 out of 10 on a pain scale. level that patient reports is acceptable is 2 out of 10 on a pain scale. Quality of pain is described as burning, Pain began. Historical: - Allergies: 08:35 PENICILLINS (Hives, rash); cb5 - Immunization history:: Adult Immunizations up to date. - Social history:: Smoking status: Patient/guardian denies using tobacco, the patient reports quitting approximately 7 years ago. - Family history:: not pertinent. Screenin:45 Abuse screen: Denies threats or abuse. Denies injuries from another. Nutritional cb5 screening: No deficits noted. Tuberculosis screening: No symptoms or risk factors identified. 08:45 Fall Risk Secondary diagnosis (15 points) bladder cancer, weakness, receiving chemo. cb5 Assessment: 08:33 General: Appears uncomfortable, slender, well groomed, Behavior is cooperative, cb5 restless. Pain: Complains of pain in pt states pain is in herbladder, burning Pain currently is 9 out of 10 on a pain scale. Neuro: No deficits noted. Level of Consciousness is awake, alert, obeys commands, Oriented to person, place, time, situation, Appropriate for age. Cardiovascular: No deficits noted. Respiratory: No deficits noted. GI: pt has a colostomy. : Reports burning with urination, pain in suprapubic area with urination. EENT: No deficits noted. Derm: Skin is fragile, is thin, with poor turgor. Musculoskeletal: Reports. 09:30 Reassessment: Patient and/or family updated on plan of care and expected duration. Pain cb5 level reassessed. 10:05 Pain: Pain currently is 4 out of 10 on a pain scale. cb5 10:30 Reassessment: Patient and/or family updated on plan of care and expected duration. Pain cb5 level reassessed. 11:30 Reassessment: Patient and/or family updated on plan of care and expected duration. Pain cb5 level reassessed. 12:10 Pain: Pain currently is 3 out of 10 on a pain scale. cb5 12:37 Reassessment: Patient and/or family updated on plan of care and expected duration. Pain cb5 level reassessed. Vital Signs: 08:33 BP 122 / 65; Pulse 82; Resp 16; Temp 98.6; Pulse Ox 98% ; Weight 63.5 kg; Height 5 ft. cb5 6 in. (167.64 cm); Pain 9/10; 13:30 BP 118 / 68; Pulse 78; Resp 16; Temp 98.4; Pulse Ox 99% ; Pain 3/10; cb5 08:33 Body Mass Index 22.60 (63.50 kg, 167.64 cm) cb5 ED Course: 07:45 Bed in low position. Call light in reach. Side rails up X2. cb5 07:45 No provider procedures requiring assistance completed. cb5 08:30 Patient arrived in ED. cb5 08:31 Piyush Villarreal MD is Attending Physician. baldemar 08:33 Taylor Brown, RN is Primary Nurse. cb5 08:35 Triage completed. cb5 08:37 Arm band placed on left wrist. cb5 09:18 Basic Metabolic Panel Sent. cb5 09:18 CBC with Diff Sent. cb5 09:18 Magnesium Sent. cb5 09:18 NT PRO-BNP Sent. cb5 09:18 PT-INR Sent. cb5 09:18 Troponin HS Sent. cb5 09:18 LFT's Sent. cb5 09:25 EKG done, by ED staff, reviewed by Piyush Villarreal MD. em1 10:09 CT Abd/Pelvis - IV Contrast Only In Process Unspecified. EDMS 10:29 XRAY Chest (1 view) In Process Unspecified. EDMS 11:54 initiated a transfer with Sidra from the [facility]/. eb 12:[address] Amy Cedillo they will have to decline the patient in transfer due to being at eb capacity. 13:43 IV discontinued. cb5 Administered Medications: 09:30 Drug: NS 0.9% 1000 ml Route: IV; Rate: 125 ml/hr; Site: right antecubital; cb5 09:35 Drug: Rocephin (cefTRIAXone) 1 grams Route: IV; Rate: per protocol; Site: right cb5 antecubital; 09:38 Drug: Zofran (Ondansetron) 4 mg Route: IVP; Site: right antecubital; cb5 09:39 Drug: morphine 2 mg Route: IVP; Site: right antecubital; cb5 11:36 Drug: morphine 2 mg Route: IVP; Site: right antecubital; cb5 11:55 Drug: levofloxacin 500 mg Volume: 100 ml; Route: IVPB; Infused Over: 60 mins; Site: cb5 right antecubital; Outcome: 11:56 ER care complete, transfer ordered by . baldemar 12:49 Discharge ordered by . baldemar 13:42 Discharged to home via wheelchair. cb5 13:42 Condition: stable 13:42 Discharge instructions given to patient, family. 13:43 Patient left the ED. cb5 Signatures: Dispatcher [employer] EDMS Piyush Villarreal MD MD cha Martinez, Eric em1 Aliza Dasilva Colleen, RN RN cb5
--- NOTE | 2021-05-08 11:56 | EDPHYS ---
Physician Documentation [facility] Name: Kristin Johnson Age: 71 yrs Sex: Female : 1950 Arrival Date: 05/08/2021 Time: 08:30 Bed 16 Private MD: ED Physician Piyush Villarreal HPI: 05/08 11:48 This 71 yrs old Female presents to ER via EMS with complaints of abdominal baldemar pain, dysuira and bladder cancer. 11:48 The patient presents with abdominal pain in the lower abdomen. Onset: The baldemar symptoms/episode began/occurred 3 day(s) ago. The patient presents with pelvic pain, urinary symptoms, frequency, hesitancy. Onset: The symptoms/episode began/occurred 3 day(s) ago. Modifying factors: The symptoms are alleviated by nothing, the symptoms are aggravated by movement, pressure, walking, urinating. Associated signs and symptoms: Pertinent positives: cramping, dysuria, hematuria, urinary frequency. Severity of symptoms: At their worst the symptoms were moderate, in the emergency department the symptoms are unchanged. The patient is not sexually active. Associated signs and symptoms: none. Historical: - Allergies: 08:35 PENICILLINS (Hives, rash); cb5 - Immunization history:: Adult Immunizations up to date. - Social history:: Smoking status: Patient/guardian denies using tobacco, the patient reports quitting approximately 7 years ago. - Family history:: not pertinent. ROS: 11:48 Constitutional: Negative for fever, chills, and weight loss, Eyes: Negative for injury, baldemar pain, redness, and discharge, ENT: Negative for injury, pain, and discharge, Neck: Negative for injury, pain, and swelling, Cardiovascular: Negative for chest pain, palpitations, and edema, Respiratory: Negative for shortness of breath, cough, wheezing, and pleuritic chest pain, Back: Negative for injury and pain, MS/Extremity: Negative for injury and deformity, Skin: Negative for injury, rash, and discoloration, Neuro: Negative for headache, weakness, numbness, tingling, and seizure, Psych: Negative for depression, anxiety, suicide ideation, homicidal ideation, and hallucinations, Allergy/Immunology: Negative for hives, rash, and allergies, Endocrine: Negative for neck swelling, polydipsia, polyuria, polyphagia, and marked weight changes, Hematologic/Lymphatic: Negative for swollen nodes, abnormal bleeding, and unusual bruising. 11:48 Abdomen/GI: Positive for abdominal pain, abdominal cramps, of the suprapubic area, right lower quadrant and left lower quadrant. Exam: 11:48 Constitutional: This is a well developed, well nourished patient who is awake, alert, baldemar and in no acute distress. Head/Face: Normocephalic, atraumatic. Eyes: Pupils equal round and reactive to light, extra-ocular motions intact. Lids and lashes normal. Conjunctiva and sclera are non-icteric and not injected. Cornea within normal limits. Periorbital areas with no swelling, redness, or edema. ENT: Nares patent. No nasal discharge, no septal abnormalities noted. Tympanic membranes are normal and external auditory canals are clear. Oropharynx with no redness, swelling, or masses, exudates, or evidence of obstruction, uvula midline. Mucous membranes moist. Neck: Trachea midline, no thyromegaly or masses palpated, and no cervical lymphadenopathy. Supple, full range of motion without nuchal rigidity, or vertebral point tenderness. No Meningismus. Chest/axilla: Normal chest wall appearance and motion. Nontender with no deformity. No lesions are appreciated. Cardiovascular: Regular rate and rhythm with a normal S1 and S2. No gallops, murmurs, or rubs. Normal PMI, no JVD. No pulse deficits. Respiratory: Lungs have equal breath sounds bilaterally, clear to auscultation and percussion. No rales, rhonchi or wheezes noted. No increased work of breathing, no retractions or nasal flaring. Back: No spinal tenderness. No costovertebral tenderness. Full range of motion. Female : Normal external genitalia. Skin: Warm, dry with normal turgor. Normal color with no rashes, no lesions, and no evidence of cellulitis. MS/ Extremity: Pulses equal, no cyanosis. Neurovascular intact. Full, normal range of motion. Neuro: Awake and alert, GCS 15, oriented to person, place, time, and situation. Cranial nerves II-XII grossly intact. Motor strength 5/5 in all extremities. Sensory grossly intact. Cerebellar exam normal. Normal gait. Psych: Awake, alert, with orientation to person, place and time. Behavior, mood, and affect are within normal limits. 11:48 Abdomen/GI: Inspection: abdomen appears normal, Bowel sounds: normal, Palpation: mild abdominal tenderness, moderate abdominal tenderness, in the suprapubic area, right lower quadrant and left lower quadrant, Liver: no appreciated palpable abnormalities, Hernia: not appreciated. 11:56 ECG was reviewed by the Attending Physician. baldemar Vital Signs: 08:33 BP 122 / 65; Pulse 82; Resp 16; Temp 98.6; Pulse Ox 98% ; Weight 63.5 kg; Height 5 ft. cb5 6 in. (167.64 cm); Pain 9/10; 13:30 BP 118 / 68; Pulse 78; Resp 16; Temp 98.4; Pulse Ox 99% ; Pain 3/10; cb5 08:33 Body Mass Index 22.60 (63.50 kg, 167.64 cm) cb5 MDM: 08:31 Patient medically screened. baldemar 11:52 Differential diagnosis: Neoplasm nonspecific abdominal pain, urinary tract infection, baldemar diverticulitis, Irritable bowel syndrome. Data reviewed: vital signs, nurses notes, lab test result(s), EKG, radiologic studies, CT scan, plain films. Data interpreted: ekg monitor: rate is 82 beats/min, rhythm is regular, Pulse oximetry: on room air is 98 %. Test interpretation: by ED physician or midlevel provider: ECG, plain radiologic studies. Counseling: I had a detailed discussion with the patient and/or guardian regarding: the historical points, exam findings, and any diagnostic results supporting the discharge/admit diagnosis, lab results, radiology results, the need to transfer to another facility, for higher level of care, [facility] does not immediately have the required specialist. 05/08 08:58 Order name: Basic Metabolic Panel; Complete Time: 11:46 baldemar 05/08 08:58 Order name: CBC with Diff; Complete Time: 11:46 baldemar 05/08 08:58 Order name: LFT's; Complete Time: 11:46 baldemar 05/08 08:58 Order name: Magnesium; Complete Time: 11:46 baldemar 05/08 08:58 Order name: NT PRO-BNP; Complete Time: 11:46 baldemar 05/08 08:58 Order name: PT-INR; Complete Time: 11:46 05/08 08:58 Order name: Troponin HS; Complete Time: 11:46 baldemar 05/08 08:58 Order name: XRAY Chest (1 view); Complete Time: 11:46 [facility] 05/08 08:58 Order name: CT Abd/Pelvis - IV Contrast Only; Complete Time: 11:46 [facility] 05/08 12:47 Order name: Urine Culture [facility] 05/08 08:58 Order name: EKG; Complete Time: 08:59 [facility] 05/08 08:58 Order name: Cardiac monitoring; Complete Time: 09:00 [facility] 05/08 08:58 Order name: EKG - Nurse/Tech; Complete Time: 09:26 [facility] 05/08 08:58 Order name: IV Saline Lock; Complete Time: 09:18 [facility] 05/08 08:58 Order name: Labs collected and sent; Complete Time: 09:17 [facility] 05/08 08:58 Order name: O2 Per Protocol; Complete Time: 09:17 [facility] 05/08 08:58 Order name: O2 Sat Monitoring; Complete Time: 09:17 [facility] 05/08 12:47 Order name: Urine Dipstick-Ancillary (obtain specimen) [facility] EC:56 Rate is 81 beats/min. Rhythm is regular. QRS [place] is Normal. [place] interval is normal. QRS baldemar interval is normal. QT interval is normal. No Q waves. T waves are Normal. No ST changes noted. Clinical impression: NSR w/ Non-specific ST/T Changes and No evidence of ischemia. Interpreted by me. Reviewed by me. Administered Medications: 09:30 Drug: NS 0.9% 1000 ml Route: IV; Rate: 125 ml/hr; Site: right antecubital; cb5 09:35 Drug: Rocephin (cefTRIAXone) 1 grams Route: IV; Rate: per protocol; Site: right cb5 antecubital; 09:38 Drug: Zofran (Ondansetron) 4 mg Route: IVP; Site: right antecubital; cb5 09:39 Drug: morphine 2 mg Route: IVP; Site: right antecubital; cb5 11:36 Drug: morphine 2 mg Route: IVP; Site: right antecubital; cb5 11:55 Drug: levofloxacin 500 mg Volume: 100 ml; Route: IVPB; Infused Over: 60 mins; Site: cb5 right antecubital; Disposition Summary: 05/08/21 12:49 Discharge Ordered Location: Home baldemar Problem: new(05/08/21 12:49) baldemar Symptoms: have improved(05/08/21 12:49) baldemar Condition: Stable(05/08/21 12:49) baldemar Diagnosis - Dysuria - bladder cancer recurrence(05/08/21 12:49) baldemar - UTI/ Urinary tract infection, site not specified baldemar - Pelvic and perineal pain - bladder cancer, fistula, infection baldemar Followup: baldemar - With: Private Physician - When: 1 - 2 days - Reason: Recheck today's complaints, Continuance of care, Re-evaluation by your physician Discharge Instructions: - Discharge Summary Sheet baldemar - Abdominal Pain, Adult baldemar - Dysuria baldemar - Pelvic Pain, Female baldemar - Urinary Tract Infection, Adult baldemar - Pelvic Pain, Female, [id number] baldemar - Urinary Tract Infection, Adult, [id number] baldemar Forms: - Medication Reconciliation Form baldemar - Thank You Letter baldemar - Antibiotic Education baldemar - Prescription Opioid Use baldemar Prescriptions: - Bactrim DS 800-160 mg Oral Tablet - take 1 tablet by ORAL route every 12 hours for 5 days; 10 tablet; Refills: 0, baldemar Product Selection Permitted Signatures: Dispatcher [employer] EDMS Piyush Villarreal MD MD cha Boman, Colleen RN RN cb5 Corrections: (The following items were deleted from the chart) 12:47 11:56 to [facility] 12:47 11:56 Other Acute Care Facility [facility] 12:47 11:56 Higher level of care [facility] 12:47 11:56 Stable [facility] 12:47 11:56 new [facility] 12:47 11:56 have improved [facility] 12:47 11:56 Dysuria - bladder cancer [facility] 12:47 11:56 Lower abdominal pain, unspecified - bladder cancer, fistula, recurrence baldemar baldemar
[2021-05-08] MEDS ORDERED: levoFLOXacin 250 MG TAB ONE (12:06)
[2021-05-08] MEDS ORDERED: Levofloxacin500mg IV 500 MG/100 ML BAG IV ONE (12:07)
[2021-05-08] MEDS ORDERED: FENTANYL 25 MCG/PATCH TD ONE (12:44)
[2021-05-08 13:48] VITALS: BP 118/68; TEMP 98.4; O2SAT 99
== END 2021-05-08 13:43 | disposition home or self-care (01) ==
LOC: ER 08:27
DX: C67.9 Malignant neoplasm of bladder, unspecified (principal); N39.0 Urinary tract infection, site not specified; T82.7XXA Infection and inflammatory reaction due to other cardiac and vascular devices, implants and grafts, initial encounter; Z88.0 Allergy status to penicillin
CPT/HCPCS: 93005; 85025; 80048; 36415; 83735; 85610; 80076; 84484; 83880; 74177; 71045; 96375; 96374; 99284; Q9967; J7030; J2405